=== PATIENT | male | born 1940 | race Hispanic/Latino ===

== ENCOUNTER 2016-10-09 11:02 | Observation (INO) | payer MEDICARE, MEDICAID ==
[2016-10-09 11:04] VITALS: BMI 25.8
[2016-10-09 11:14] VITALS: RESP 16; TEMP 97.7
--- NOTE | 2016-10-09 11:47 | ED PDOC ---
Arrival/HPI - General Chief Complaint: Abdominal Pain Time Seen by Provider: 10/09/16 11:21 Historian: Patient - History of Present Illness Narrative History of Present Illness (Text): 10/09/16 11:43 A 75 year old male, whose past medical history includes pacemaker, hypertension , hyperlipidemia, diabetes, CHF, asthma and foot ulcer, presents to the emergency department complaining of intermittent right sided abdominal pain for the past 3-4 days. Patient states the pain occasionally radiates to the right side of his back. Patient denies any fever, vomiting, diarrhea, stool changes, urinary symptoms, chest pain, shortness of breath or any other complaints. Patient has no history of abdominal surgeries. PMD/Technical Administrator: Dr. Bowling Time/Duration: Other (3-4 days) Symptom Course: Intermittent Quality: Other Context: Home Past Medical History - Provider Review Nursing Documentation Reviewed: Yes - Past History Past History: Non-Contributing - Infectious Disease Hx of Infectious Diseases: None - Cardiac Hx Cardiac Disorders: Yes Hx Congestive Heart Failure: Yes Hx Hypertension: Yes Hx Pacemaker: Yes ([employer] 01/2007, 02/2009) - Pulmonary Hx Respiratory Disorders: Yes Hx Asthma: Yes Hx Chronic Obstructive Pulmonary Disease (COPD): Yes - Neurological Hx Neurological Disorder: No - HEENT Hx HEENT Disorder: No - Renal Hx Renal Disorder: No - Endocrine/Metabolic Hx Endocrine Disorders: Yes Hx Diabetes Mellitus Type 2: Yes - Hematological/Oncological Hx Blood Disorders: Yes Hx Cancer: Yes (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, great toe right) Other/Comment: pt was treated with cobalt,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, due to cancerous tumor - Integumentary Hx Dermatological Disorder: Yes Other/Comment: R diabetic foot ulcer - Musculoskeletal/Rheumatological Hx Musculoskeletal Disorders: Yes Hx Arthritis: Yes - Gastrointestinal Hx Gastrointestinal Disorders: No - Genitourinary/Gynecological Hx Genitourinary Disorders: No - Psychiatric Hx Psychophysiologic Disorder: No Hx Depression: No Hx Emotional Abuse: No Hx Physical Abuse: No Hx Substance Use: No - Surgical History Hx Amputation: Yes (r great toe) Other/Comment: Pacemaker, great toe amputation to right foot - Anesthesia Hx Anesthesia: Yes Hx Anesthesia Reactions: No Hx Malignant Hyperthermia: No - Suicidal Assessment Feels Threatened In Home Enviroment: No Family/Social History - Physician Review Nursing Documentation Reviewed: Yes Family/Social History: No Known Family HX Smoking Status: Former Smoker Hx Alcohol Use: No Hx Substance Use: No Hx Substance Use Treatment: No Allergies/Home Meds Allergies/Adverse Reactions: Allergies epinephrine Adverse Reaction (Verified 08/30/15 18:29) DIZZINESS Home Medications: Home Meds Medication Instructions Recorded Confirmed Esomeprazole Magnesium [Nexium] 40 mg PO DAILY 05/11/12 10/09/16 Furosemide [Lasix] 40 mg PO DAILY 05/11/12 10/09/16 Propranolol Hydrochloride [Inderal] 120 mg PO DAILY 05/11/12 10/09/16 Albuterol Sulfate [Albuterol Hfa] 0.09 mg IH Q6 PRN 07/18/12 10/09/16 Aspirin [Aspirin EC] 81 mg PO DAILY 12/26/14 10/09/16 Simvastatin [Zocor] 40 mg PO QPM 12/26/14 10/09/16 Ticagrelor [Brilinta] 90 mg PO BID 03/24/15 10/09/16 Glyburide 5 mg PO DAILY 06/16/15 10/09/16 Amoxicillin/Clavulanate [Augmentin 875 tab PO BID 10/09/16 10/09/16 875 MG-125 MG Tab] Review of Systems - Physician Review All systems were reviewed & negative as marked: Yes - Review of Systems Constitutional: absent: Fevers Respiratory: absent: SOB Cardiovascular: absent: Chest Pain Gastrointestinal: Abdominal Pain (Right sided abdominal pain, occasional radiation to right back). absent: Stool Changes, Diarrhea, Vomiting Genitourinary Male: absent: Dysuria, Frequency, Hematuria, Urinary Output Changes Physical Exam Vital Signs Reviewed: Yes Vital Signs Temp Pulse Resp BP Pulse Ox 10/09/16 15:22 178/99 H 10/09/16 14:00 73 16 190/90 H 100 10/09/16 11:03 97.7 F 70 16 171/79 H 98 Temperature: Afebrile Blood Pressure: Hypertensive Pulse: Regular Respiratory Rate: Normal Appearance: Positive for: Well-Appearing, Non-Toxic, Comfortable Pain Distress: None Mental Status: Positive for: Alert and Oriented X 3 - Systems Exam Head: Present: Atraumatic, Normocephalic Pupils: Present: PERRL Extroacular Muscles: Present: EOMI Conjunctiva: Present: Normal Mouth: Present: Moist Mucous Membranes Neck: Present: Normal Range of Motion Respiratory/Chest: Present: Clear to Auscultation, Good Air Exchange. No: Respiratory Distress, Accessory Muscle Use Cardiovascular: Present: Regular Rate and Rhythm, Normal S1, S2. No: Murmurs Abdomen: Present: Tenderness (Right sided tenderness to palption), Normal Bowel Sounds. No: Distention, Peritoneal Signs, Rebound, Guarding, McBurney's Point Tender, Other (Jeanne's sign) Back: Present: Normal Inspection. No: CVA Tenderness Upper Extremity: Present: Normal Inspection. No: Cyanosis, Edema Lower Extremity: Present: Normal Inspection. No: Edema Neurological: Present: GCS=15, CN II-XII Intact, Speech Normal Skin: Present: Warm, Dry, Normal Color. No: Rashes Psychiatric: Present: Alert, Oriented x 3, Normal Insight, Normal Concentration Medical Decision Making ED Course and Treatment: 10/09/16 11:43 Impression: A 75 year old male with right sided abdominal pain. Denies vomiting, diarrhea or other complaints. Tenderness on exam. Differential Diagnosis included but are not limited to: Appendicitis vs. Cholecystitis vs. Colitis Plan: -- Abdomen and pelvis CT -- Labs -- Urinalysis -- Toradol -- Reassess and disposition 10/09/16 16:05 Patient requesting his lasix dosage and it was given. CT was completed and it was negative. Patient abdomen was soft, not tender and not distended. Patient is tolerating PO fluids. 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 Catapress low dosage ordered. BP improved. Will discharge patient home with PMD f/u Dr. Bowling. Advised to return to the ED with any worsening symptoms or concerns. - Lab Interpretations I have reviewed the lab results: Yes - Medication Orders Current Medication Orders: Discontinued Medications Clonidine HCl (Catapres) 0.1 mg PO STAT STA Stop: 10/09/16 15:23 Furosemide (Lasix) 40 mg IVP STAT STA Stop: 10/09/16 14:19 Ketorolac Tromethamine (Toradol) 30 mg IVP STAT STA Stop: 10/09/16 11:31 Last Admin: 10/09/16 12:00 Dose: 30 MG IVP Administration Document 10/09/16 12:00 EQ (Rec: 10/09/16 12:15 EQ [facility] [id number]) Charges for Administration # of IVP Administrations 1 ED OBSERVATION Date of observation admission: 10/09/16 Time of observation admission: 11:33 - Observation admission statement Patient is being placed in observation because:: Abdominal pain - Goals of Observation Goals of observation are:: Monitor and treat symptoms - Progress Note Progress Note: 10/09/16 11:33 Patient with right sided abdominal pain. Will order CT and labs. Pain medication administered. Will re-evaluate after treatment. EKG shows paced rhythm at [address]-segment elevations, normal intervals. Interpreted by me. 10/09/16 13:30 Patient resting comfortably, no new complaints. Report Date : 10/09/2016 14:49:35 PROCEDURE: CT Abdomen and Pelvis without intravenous contrast Dictator : Jesus Alberto Damon MD IMPRESSION: Unremarkable non contrast enhanced CT of the abdomen and pelvis. - Scribe Statement The provider has reviewed the documentation as recorded by the Scribe Christa Stevenson Provider Scribe Attestation: All medical record entries made by the Scribe were at my direction and personally dictated by me. I have reviewed the chart and agree that the record accurately reflects my personal performance of the history, physical exam, medical decision making, and the department course for this patient. I have also personally directed, reviewed, and agree with the discharge instructions and disposition. Disposition/Present on Arrival - Present on Arrival Any Indicators Present on Arrival: No History of DVT/PE: No History of Uncontrolled Diabetes: No Urinary Catheter: No History of Decub. Ulcer: No History Surgical Site Infection Following: None - Disposition Have Diagnosis and Disposition been Completed?: Yes Diagnosis: Abdominal pain, Hypertension Disposition: HOME/ ROUTINE Disposition Time: 11:33 Patient Plan: Discharge Patient Problems: Current Active Problems Problem Status Diagnosed Abdominal pain Acute Fever Acute Hypertension Acute Infected pacemaker Acute Condition: IMPROVED
[2016-10-09 11:55] LABS: ADD MANUAL DIFF? NO
[2016-10-09 11:59] LABS: BASO # 0.02 K/mm3 (0.0-2.0); BASO % 0.3 % (0.0-3.0); EOS # 0.2 (0.0-0.7); EOS % 3.1 % (1.5-5.0); GRAN # 4.69 (1.4-6.5); GRAN % 65.4 % (50.0-68.0); HEMATOCRIT 33.9 % (42.0-52.0); LYMPH # 1.8 (1.2-3.4); LYMPH % 25.5 % (22.0-35.0); MEAN CORPUSCULAR HGB CONC 31.6 g/dl (31.0-37.0); MEAN PLATELET VOLUME 8.5 fl (7.0-11.0); MONO # 0.4 (0.1-0.6); MONO % 5.7 % (1.0-6.0); PLATELET COUNT 367 10^3/uL (120.0-450.0); RED CELL DISTRIBUTION WIDTH 15.5 % (11.5-14.5); WHITE BLOOD COUNT 7.2 10^3/ul (4.5-11.0)
[2016-10-09] MEDS ORDERED: Iohexol 240 (50 ml) ONE (12:10)
[2016-10-09 12:11] LABS: INR 0.99 (0.93-1.08); PARTIAL THROMBOPLASTIN TIME 26.1 Seconds (23.7-30.8)
[2016-10-09 12:15] LABS: ALB/GLOB RATIO 1.1 (1.1-1.8); ALKALINE PHOSPHATASE 91 U/L (38-133); ALT/SGPT 29 U/L (7-56); AST/SGOT 16 U/L (15-59); BILIRUBIN,TOTAL 0.6 mg/dL (0.2-1.3); BLOOD UREA NITROGEN 14 mg/dL (7-21); CALCIUM 9.3 mg/dL (8.4-10.5); CARBON DIOXIDE 31 mmol/L (21-33); CHLORIDE 96 mmol/L (98-107); GFR AFRICAN-AMERICAN > 60; GLUCOSE,RANDOM 190 mg/dL (70-110); LIPASE 134 U/L (23-300); POTASSIUM 4.4 mmol/L (3.6-5.0); SODIUM 136 mmol/L (132-148); TOTAL PROTEIN 7.6 g/dL (5.8-8.3)
[2016-10-09 12:36] LABS: URINE BILIRUBIN NEGATIVE (NEGATIVE); URINE BLOOD NEGATIVE (NEGATIVE); URINE GLUCOSE (UA) NEGATIVE (NEGATIVE); URINE KETONE NEGATIVE (NEGATIVE); URINE LEUKOCYTE ESTERASE NEGATIVE Leu/uL (NEGATIVE); URINE PROTEIN 100 mg/dL (<30 mg/dL); URINE UROBILINOGEN 0.2 E.U./dL (<1 E.U./dL)
[2016-10-09 12:37] LABS: URINE APPEARANCE CLEAR (CLEAR); URINE COLOR YELLOW (YELLOW)
[2016-10-09 13:05] LABS: URINE BACTERIA TRACE (NEG); URINE RBC NEGATIVE /hpf (0-2); URINE WBC 0 - 2 /hpf (0-6)
[2016-10-09] MEDS ORDERED: Iohexol 350 MG/100 ML VIAL ONE (14:12)
--- NOTE | 2016-10-09 14:51 | CT ---
PROCEDURE: CT Abdomen and Pelvis without intravenous contrast HISTORY: R sided abd pain r/o appy r/o cholecytitis COMPARISON: None. TECHNIQUE: Without contrast. Contrast Dose: Radiation dose: Total exam DLP = 730 mGy-cm. This CT exam was performed using one or more of the following dose reduction techniques: Automated exposure control, adjustment of the mA and/or kV according to patient size, and/or use of iterative reconstruction technique. FINDINGS: LOWER THORAX: Unremarkable. LIVER: Unremarkable. No gross lesion or ductal dilatation. GALLBLADDER AND BILE DUCTS: Unremarkable. PANCREAS: Unremarkable. No gross lesion or ductal dilatation. SPLEEN: Unremarkable. ADRENALS: Unremarkable. No mass. KIDNEYS AND URETERS: Unremarkable. No hydronephrosis. No solid mass. VASCULATURE: Unremarkable. No aortic aneurysm. BOWEL: Unremarkable. No obstruction. No gross mural thickening. APPENDIX: Unremarkable. Normal appendix. PERITONEUM: Unremarkable. No free fluid. No free air. LYMPH NODES: Unremarkable. No enlarged lymph nodes. BLADDER: Unremarkable. REPRODUCTIVE: Unremarkable. BONES: No acute fracture. OTHER FINDINGS: None. IMPRESSION: Unremarkable non contrast enhanced CT of the abdomen and pelvis.
[2016-10-09 16:28] VITALS: BP 168/88; PULSE 71; O2SAT 99
--- NOTE | 2016-10-10 11:16 | CARD ---
APPROVED REPORT EKG Measurement Heart [id number] OH 180P-23 [id number] <Conclusion> Electronic atrial pacemaker: A pacing is new
== END 2016-10-09 15:43 | disposition home or self-care (01) ==
LOC: ED 11:02 → EROBSV 11:33
PROVIDERS: ADMIT Emergency Medicine; ATTEND Emergency Medicine
DX: R10.9 Unspecified abdominal pain (principal); I10 Essential (primary) hypertension; Z87.891 Personal history of nicotine dependence; E11.9 Type 2 diabetes mellitus without complications; E78.5 Hyperlipidemia, unspecified
CPT/HCPCS: 36415; 74176; 80053; 81001; 83690; 85025; 85610; 85730; 93005; 96374; 96375; 99283; G0378; J1885; J1940; Q9966

== ENCOUNTER 2017-04-12 14:03 | Emergency (ER) | payer MEDICARE, MEDICAID ==
[2017-04-12 14:03] VITALS: BMI 25.8
--- NOTE | 2017-04-12 14:46 | ED PDOC ---
Arrival/HPI - General Time Seen by Provider: 04/12/17 14:43 Historian: Patient - History of Present Illness Narrative History of Present Illness (Text): 04/12/17 14:25 Favian Webster is a 76 year old male, whose past medical history includes hypertension, diabetes, hyperlipidemia, CHF, and COPD, who presents to the emergency department complaining of a productive cough for the past three days. Assoc sore throat. He also states having shortness of breath and it is worse when laying down however he states he is chronically sob. Patient denies fever, nausea, chest pain, headache, vomiting, abdominal pain, or other complaints. PMD: Dr. Bowling Time/Duration: < week (3 days) Symptom Onset: Gradual Symptom Course: Worsening Modifying Factors (Text): shortness of breath and cough is worse when laying down Associated Symptoms (Text): sputum, sore throat, shortness of breath, cough Past Medical History - Provider Review Nursing Documentation Reviewed: Yes - Past History Past History: Non-Contributing - Infectious Disease Hx of Infectious Diseases: None - Cardiac Hx Cardiac Disorders: Yes Hx Congestive Heart Failure: Yes Hx Hypertension: Yes Hx Pacemaker: Yes ([employer] 01/2007, 02/2009) - Pulmonary Hx Respiratory Disorders: Yes Hx Asthma: Yes Hx Chronic Obstructive Pulmonary Disease (COPD): Yes - Neurological Hx Neurological Disorder: No - HEENT Hx HEENT Disorder: No - Renal Hx Renal Disorder: No - Endocrine/Metabolic Hx Endocrine Disorders: Yes Hx Diabetes Mellitus Type 2: Yes - Hematological/Oncological Hx Blood Disorders: Yes Hx Cancer: Yes (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, great toe right) Other/Comment: pt was treated with cobalt,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, due to cancerous tumor - Integumentary Other/Comment: R diabetic foot ulcer - Musculoskeletal/Rheumatological Hx Musculoskeletal Disorders: Yes Hx Arthritis: Yes - Gastrointestinal Hx Gastrointestinal Disorders: No - Genitourinary/Gynecological Hx Genitourinary Disorders: No - Psychiatric Hx Psychophysiologic Disorder: No Hx Depression: No Hx Emotional Abuse: No Hx Physical Abuse: No Hx Substance Use: No - Surgical History Hx Amputation: Yes (r great toe) Other/Comment: Pacemaker, great toe amputation to right foot - Anesthesia Hx Anesthesia: Yes Hx Anesthesia Reactions: No Hx Malignant Hyperthermia: No - Suicidal Assessment Feels Threatened In Home Enviroment: No Family/Social History - Physician Review Nursing Documentation Reviewed: Yes Family/Social History: Other (non-contributory ) Smoking Status: Former Smoker Hx Alcohol Use: No Hx Substance Use: No Hx Substance Use Treatment: No Allergies/Home Meds Allergies/Adverse Reactions: Allergies epinephrine Adverse Reaction (Verified 08/30/15 18:29) DIZZINESS Home Medications: Home Meds Medication Instructions Recorded Confirmed Esomeprazole Magnesium [Nexium] 40 mg PO DAILY 05/11/12 04/12/17 Albuterol Sulfate [Albuterol Hfa] 0.09 mg IH Q6 PRN 07/18/12 04/12/17 Aspirin [Aspirin EC] 81 mg PO DAILY 12/26/14 04/12/17 Simvastatin [Zocor] 40 mg PO QPM 12/26/14 04/12/17 Ticagrelor [Brilinta] 90 mg PO BID 03/24/15 04/12/17 Amoxicillin/Clavulanate [Augmentin 875 tab PO BID 10/09/16 04/12/17 875 MG-125 MG Tab] Review of Systems - Review of Systems Constitutional: absent: Fevers ENT: Voice Changes, Sore Throat Respiratory: SOB, Cough, Sputum Cardiovascular: absent: Chest Pain Gastrointestinal: absent: Abdominal Pain, Diarrhea, Nausea, Vomiting Musculoskeletal: absent: Back Pain Neurological: absent: Headache Physical Exam Vital Signs Reviewed: Yes Vital Signs Temp Pulse Resp BP Pulse Ox 04/12/17 16:50 74 19 156/83 H 99 04/12/17 15:07 98.0 F 78 18 167/89 H 99 Appearance: Positive for: Well-Appearing, Non-Toxic, Comfortable Pain Distress: None Mental Status: Positive for: Alert and Oriented X 3 - Systems Exam Head: Present: Atraumatic, Normocephalic Mouth: Present: Moist Mucous Membranes Pharnyx: No: ERYTHEMA, EXUDATE Neck: Present: Normal Range of Motion Respiratory/Chest: Present: Clear to Auscultation, Good Air Exchange, Other ( pacemaker on left chest wall with exposed wiring that has been present for 3 years. no current signs of infection). No: Respiratory Distress, Accessory Muscle Use Cardiovascular: Present: Regular Rate and Rhythm, Normal S1, S2. No: Murmurs Abdomen: Present: Normal Bowel Sounds. No: Tenderness, Distention, Peritoneal Signs, Rebound, Guarding Upper Extremity: Present: Normal Inspection, Normal ROM, NORMAL PULSES. No: Cyanosis, Edema Lower Extremity: Present: Normal Inspection, NORMAL PULSES, Normal ROM. No: Edema, Tenderness, Swelling Neurological: Present: GCS=15, CN II-XII Intact, Speech Normal Skin: Present: Warm, Dry, Normal Color. No: Rashes Psychiatric: Present: Alert, Oriented x 3, Normal Insight, Normal Concentration Medical Decision Making ED Course and Treatment: pt resting comfortably, appears well, no distress, nl spo2 on RA. disc results, plan for rx, follow up, rtr. pt v/u and agrees w plan. - Lab Interpretations Lab Results: 04/12/17 15:10 04/12/17 15:10 Lab Results 04/12/17 15:10: Sodium 141, Potassium 4.1, Chloride 100, Carbon Dioxide 30, Anion Gap 15, BUN 19, Creatinine 1.3, Est GFR ( Amer) > 60, Est GFR (Non- Af Amer) 53, Random Glucose 156 H, Calcium 9.1, Total Bilirubin 0.5, AST 32, ALT 24, Alkaline Phosphatase 86, Troponin I < 0.01, NT-Pro-B Natriuret Pep 347, Total Protein 7.9, Albumin 4.4, Globulin 3.4, Albumin/Globulin Ratio 1.3 04/12/17 15:10: WBC 10.2 D, RBC 4.49, Hgb 10.5 L, Hct 34.0 L, MCV 75.7 L, MCH 23.4 L, MCHC 30.9 L, RDW 16.5 H, Plt Count 395, MPV 8.7, Gran % 76.5 H, Lymph % (Auto) 13.0 L, [place] % (Auto) 8.5 H, Eos % (Auto) 1.8, Baso % (Auto) 0.2, Gran # 7.79 H, Lymph # 1.3, [place] # 0.9 H, Eos # 0.2, Baso # 0.02 04/12/17 15:07: POC Glucose (mg/dL) 176 H - RAD Interpretation Radiology Orders: 04/12/17 14:53 CHEST TWO VIEWS (PA/LAT) [RAD] Stat - Scribe Statement The provider has reviewed the documentation as recorded by the John Dominique Provider Scribe Attestation: All medical record entries made by the Scribe were at my direction and personally dictated by me. I have reviewed the chart and agree that the record accurately reflects my personal performance of the history, physical exam, medical decision making, and the department course for this patient. I have also personally directed, reviewed, and agree with the discharge instructions and disposition. Disposition/Present on Arrival - Present on Arrival Any Indicators Present on Arrival: No History of DVT/PE: No History of Uncontrolled Diabetes: No Urinary Catheter: No History Surgical Site Infection Following: None - Disposition Have Diagnosis and Disposition been Completed?: Yes Diagnosis: Bronchitis Disposition: HOME/ ROUTINE Disposition Time: 16:37 Condition: STABLE Discharge Instructions (ExitCare): Acute Bronchitis (ED) Additional Instructions: Please follow up with your doctor. Return to the ER for any fever, worsening symptoms, or for any other concerns. Prescriptions: Azithromycin 250 mg PO DAILY #6 tab Referrals: PCP,NO [Primary Care Provider] - Follow up with primary Forms: [employer] (Korean)
[2017-04-12 15:15] VITALS: TEMP 98; O2SAT 99
[2017-04-12 15:29] LABS: BASO # 0.02 K/mm3 (0.0-2.0); BASO % 0.2 % (0.0-3.0); EOS # 0.2 (0.0-0.7); EOS % 1.8 % (1.5-5.0); GRAN # 7.79 (1.4-6.5); GRAN % 76.5 % (50.0-68.0); LYMPH # 1.3 (1.2-3.4); MEAN CELL VOLUME 75.7 fl (80.0-105.0); MEAN CORPUSCULAR HEMOGLOBIN 23.4 pg (25.0-35.0); MEAN CORPUSCULAR HGB CONC 30.9 g/dl (31.0-37.0); MEAN PLATELET VOLUME 8.7 fl (7.0-11.0); MONO # 0.9 (0.1-0.6); MONO % 8.5 % (1.0-6.0); RED CELL DISTRIBUTION WIDTH 16.5 % (11.5-14.5); WHITE BLOOD COUNT 10.2 10^3/ul (4.5-11.0)
[2017-04-12 15:31] LABS: ALB/GLOB RATIO 1.3 (1.1-1.8); ALKALINE PHOSPHATASE 86 U/L (38-126); ALT/SGPT 24 U/L (7-56); AST/SGOT 32 U/L (17-59); BILIRUBIN,TOTAL 0.5 mg/dL (0.2-1.3); BLOOD UREA NITROGEN 19 mg/dL (7-21); CALCIUM 9.1 mg/dL (8.4-10.5); CARBON DIOXIDE 30 mmol/L (21-33); CHLORIDE 100 mmol/L (98-107); GFR AFRICAN-AMERICAN > 60; GLUCOSE,RANDOM 156 mg/dL (70-110); POTASSIUM 4.1 mmol/L (3.6-5.0); SODIUM 141 mmol/L (132-148); TOTAL PROTEIN 7.9 g/dL (5.8-8.3)
[2017-04-12 15:48] LABS: TROPONIN I < 0.01 ng/mL
--- NOTE | 2017-04-12 16:16 | RAD ---
HISTORY: cough COMPARISON: 08/30/2015 TECHNIQUE: Chest PA and lateral FINDINGS: LUNGS: No active pulmonary disease. PLEURA: No significant pleural effusion identified. No pneumothorax apparent. CARDIOVASCULAR: Normal. OSSEOUS STRUCTURES: No significant abnormalities. VISUALIZED UPPER ABDOMEN: Normal. OTHER FINDINGS: None. IMPRESSION: No active disease.
[2017-04-12 16:50] VITALS: BP 156/83; PULSE 74; RESP 19
== END 2017-04-12 16:50 | disposition home or self-care (01) ==
LOC: ED 14:03
DX: J40 Bronchitis, not specified as acute or chronic (principal); E78.5 Hyperlipidemia, unspecified; I10 Essential (primary) hypertension; E11.9 Type 2 diabetes mellitus without complications; Z87.891 Personal history of nicotine dependence; I50.9 Heart failure, unspecified

== ENCOUNTER 2018-01-11 15:37 | Emergency (ER) | payer MEDICARE, MEDICAID ==
[2018-01-11 15:38] VITALS: BMI 25.8
--- NOTE | 2018-01-11 16:05 | ED PDOC ---
Arrival/HPI - General Time Seen by Provider: 01/11/18 16:05 Historian: Patient - History of Present Illness Narrative History of Present Illness (Text): 01/11/18 16:04 A 77 year old male, whose past medical history includes pacemaker and pneumonia , presents to the emergency department complaining of cough since last night. Patient reports also spitting up clear mucous and has rhinorrhea as well. States he has difficulty swallowing mucous and experiences a choking sensation in throat. Also, he mentions after eating it takes approximately 1 hour to clear throat. He states throat feels somewhat swollen. Patient notes he later began violently coughing since 22:00 last night and was unable to sleep until 07 :00 this morning. However,. 2 hours later coughing came back and has not stopped. He notes coughing worsens when laying down. Patient became concerned of having possible bronchitis or pneumonia due to past medical history. Patient denies any vomiting, swelling to lower extremities, or any other complaints at this time. PMD: Dr. Moe Bowling Time/Duration: Other (coughing began last night at approximately 22:00) Past Medical History - Provider Review Nursing Documentation Reviewed: Yes - Past History Past History: Non-Contributing - Infectious Disease Hx of Infectious Diseases: None - Cardiac Hx Cardiac Disorders: Yes Hx Congestive Heart Failure: Yes Hx Hypertension: Yes Hx Pacemaker: Yes ([employer] 01/2007, 02/2009) - Pulmonary Hx Respiratory Disorders: Yes Hx Asthma: Yes Hx Chronic Obstructive Pulmonary Disease (COPD): Yes - Neurological Hx Neurological Disorder: No - HEENT Hx HEENT Disorder: No - Renal Hx Renal Disorder: No - Endocrine/Metabolic Hx Endocrine Disorders: Yes Hx Diabetes Mellitus Type 2: Yes - Hematological/Oncological Hx Blood Disorders: Yes Hx Cancer: Yes (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, great toe right) Other/Comment: pt was treated with cobalt,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, due to cancerous tumor - Integumentary Other/Comment: R diabetic foot ulcer - Musculoskeletal/Rheumatological Hx Musculoskeletal Disorders: Yes Hx Arthritis: Yes - Gastrointestinal Hx Gastrointestinal Disorders: No - Genitourinary/Gynecological Hx Genitourinary Disorders: No - Psychiatric Hx Psychophysiologic Disorder: No Hx Depression: No Hx Emotional Abuse: No Hx Physical Abuse: No Hx Substance Use: No - Surgical History Hx Amputation: Yes (r great toe) Other/Comment: Pacemaker, great toe amputation to right foot - Anesthesia Hx Anesthesia: Yes Hx Anesthesia Reactions: No Hx Malignant Hyperthermia: No - Suicidal Assessment Feels Threatened In Home Enviroment: No Family/Social History - Physician Review Nursing Documentation Reviewed: Yes Family/Social History: No Known Family HX Smoking Status: Former Smoker Hx Alcohol Use: No Hx Substance Use: No Hx Substance Use Treatment: No Allergies/Home Meds Allergies/Adverse Reactions: Allergies epinephrine Adverse Reaction (Verified 01/11/18 16:01) DIZZINESS Home Medications: Home Meds Medication Instructions Recorded Confirmed Esomeprazole Magnesium [Nexium] 40 mg PO DAILY 05/11/12 01/11/18 Simvastatin [Zocor] 40 mg PO QPM 12/26/14 01/11/18 Ticagrelor [Brilinta] 90 mg PO BID 03/24/15 01/11/18 Amoxicillin/Clavulanate [Augmentin 875 tab PO BID 10/09/16 01/11/18 875 MG-125 MG Tab] Propranolol [Inderal LA] 80 mg PO DAILY 01/11/18 01/11/18 glyBURIDE [Micronase] 5 mg PO BID 01/11/18 01/11/18 Review of Systems - Physician Review All systems were reviewed & negative as marked: Yes - Review of Systems ENT: Rhinorrhea, Other (difficulty swallowing, feels "swelling" sensation in throat.) Respiratory: Cough (violent cough, with clear mucous which causes choking sensation when swallowing) Gastrointestinal: absent: Vomiting Musculoskeletal: absent: Other (no swelling to lower extremities) Physical Exam - Physical Exam Narrative Physical Exam (Text): Gen: VS reviewed, alert, well developed, well nourished, nontoxic, mild distress (every patient is mild distress unless otherwise stated). ENT: normal pharynx, post-nasal drip Eye: EOMI, PERRL Neck: no JVD, supple, no adenopathy CV: regular rate, regular rhythm, no rubs, no murmur, no gallops, S1, S2, pulses , equal and strong Pulm: no distress, clear to auscultation, no wheeze, no rhonchi, breath sounds equal, no rales Abd: soft, nontender, no guarding, no rebound, no rigidity, normal bowel sounds Ext: no edema Skin: good color, no rash, no cyanosis Psych: responds appropriately to questions, normal affect Neuro: oriented x 3, CN2-12 intact grossly, motor intact, sensation intact Vital Signs Reviewed: Yes Vital Signs Temp Pulse Resp BP Pulse Ox 01/11/18 16:03 98.8 F 77 16 130/82 98 Temperature: Afebrile Blood Pressure: Normal Pulse: Regular Respiratory Rate: Normal Appearance: Positive for: Well-Appearing, Non-Toxic, Comfortable Pain Distress: None Mental Status: Positive for: Alert and Oriented X 3 Medical Decision Making ED Course and Treatment: 01/11/18 16:08 Impression: 77 year old male with coughing and rhinorrhea. Physical exam shows post-nasal drip; otherwise no other acute findings upon examination. Plan: -- Chest X-ray -- Reassess and disposition Progress Notes: 01/11/2018 17:10 Chest X-ray IMPRESSION: No active disease. No significant interval change compared to the prior examination(s). Dictator: Vitor aLndry MD 01/11/18 17:40 patient seen for runny nose and cough, acute onset, benign physical exam, presentation consistent with postnasal drip. cxr doen to rule out pneumonia. no clinical evidence of CHF. supportive care, recommends antihistamine for the runny nose. further would like to tx with pseudophed but will avoid in light of the patient's cardiac hx. patient remained stable throughout ED and will follow up with his pcp. - RAD Interpretation Radiology Orders: 01/11/18 16:08 X-RAY [CHEST TWO VIEWS (PA/LAT)] [RAD] Stat - Scribe Statement The provider has reviewed the documentation as recorded by the John Hampton Provider Scribe Attestation: All medical record entries made by the Rafalibalisia were at my direction and personally dictated by me. I have reviewed the chart and agree that the record accurately reflects my personal performance of the history, physical exam, medical decision making, and the department course for this patient. I have also personally directed, reviewed, and agree with the discharge instructions and disposition. Disposition/Present on Arrival - Present on Arrival Any Indicators Present on Arrival: No History of DVT/PE: No History of Uncontrolled Diabetes: No Urinary Catheter: No History Surgical Site Infection Following: None - Disposition Have Diagnosis and Disposition been Completed?: Yes Diagnosis: Postnasal drip Disposition: HOME/ ROUTINE Disposition Time: 17:43 Patient Plan: Discharge Condition: STABLE Discharge Instructions (ExitCare): Cough in Adults Print Language: CHILEAN Additional Instructions: MIAN MICHAEL, thank you for letting us take care of you today. Your provider was Shoaib Leigh DO and you were treated for cough with postnasal drip. The emergency medical care you received today was directed at your acute symptoms. If you were prescribed any medication, please fill it and take as directed. It may take several days for your symptoms to resolve. Return to the Emergency Department if your symptoms worsen, do not improve, or if you have any other problems. Please contact your doctor or call one of the physicians/clinics you have been referred to that are listed on the Patient Visit Information form that is included in your discharge packet. Bring any paperwork you were given at discharge with you along with any medications you are taking to your follow up visit. Our treatment cannot replace ongoing medical care by a primary care provider outside of the emergency department. Thank you for allowing the [facility] team to be part of your care today. If you had an X-Ray or CT scan: A Radiologist will review the ED reading if any change in treatment is needed we will contact you. If you had a blood, urine, or wound culture: It will take several days for the results, if any change in treatment is needed we will contact you. If you had an STI test: It will take 48 hours for the results. Please call after 1 week if you have not heard back. Referrals: Moe Bowling MD [Primary Care Provider] - Follow up with primary
--- NOTE | 2018-01-11 17:12 | RAD ---
Date of service: 01/11/2018 HISTORY: cough, pneumonia COMPARISON: 04/12/2017. TECHNIQUE: Chest PA and lateral FINDINGS: LUNGS: No active pulmonary disease. PLEURA: No significant pleural effusion identified. No pneumothorax apparent. CARDIOVASCULAR: No radiographic findings to suggest acute or significant cardiovascular disease. Position/ configuration of pacemaker device: Satisfactory. OSSEOUS STRUCTURES: No significant abnormalities. VISUALIZED UPPER ABDOMEN: Normal. OTHER FINDINGS: None. IMPRESSION: No active disease. No significant interval change compared to the prior examination(s).
[2018-01-11 18:25] VITALS: BP 137/72; PULSE 70; RESP 18; TEMP 98.2; O2SAT 98
== END 2018-01-11 17:49 | disposition home or self-care (01) ==
LOC: ED 15:37
DX: R09.82 Postnasal drip (principal); Z87.01 Personal history of pneumonia (recurrent); Z87.891 Personal history of nicotine dependence

== ENCOUNTER 2018-01-30 19:46 | Inpatient (IN) | payer MEDICARE, MEDICAID ==
--- NOTE | 2018-01-30 20:15 | ED PDOC ---
Arrival/HPI - General Historian: Patient - History of Present Illness Time/Duration: 24 hours Symptom Onset: Sudden Symptom Course: Unchanged, Worsening Activities at Onset: Rest <Steven Parada - Last Filed: 01/30/18 23:34> <Keaton Heredia - Last Filed: 02/04/18 07:31> - General Chief Complaint: Cough, Cold, Congestion Time Seen by Provider: 01/30/18 19:48 - History of Present Illness Narrative History of Present Illness (Text): 01/30/18 20:12 Patient is a 77 year old male with PMH of DM2, CHF, and pacemaker placement who presents to Emergency department with worsening cough since around 7am this AM. Patient states that about 2 weeks ago he was here for a bout of laryngitis. Patient states he is on antibiotics chronically for diabetic foot wound in his R foot. He states that the cough is sometimes productive of green-clear sputum and sometimes dry. He states that cough drops have not helped with the cough and nothing in particular seems to make it worse. He states he feels intermittent shortness of breath when he coughs but otherwise denies fever, chills, chest pain, wheezing, nausea/vomiting/diarrhea, or other symptoms. ( Steven Parada) Past Medical History - Provider Review Nursing Documentation Reviewed: Yes - Travel History Have you recently traveled outside [place] w/in the past 3 mons?: No - Past History Past History: Non-Contributing - Infectious Disease Hx of Infectious Diseases: None - Cardiac Hx Cardiac Disorders: Yes Hx Congestive Heart Failure: Yes Hx Hypertension: Yes Hx Pacemaker: Yes - Pulmonary Hx Respiratory Disorders: Yes Hx Asthma: Yes Hx Chronic Obstructive Pulmonary Disease (COPD): Yes - Neurological Hx Neurological Disorder: No - HEENT Hx HEENT Disorder: No - Renal Hx Renal Disorder: No - Endocrine/Metabolic Hx Endocrine Disorders: Yes Hx Diabetes Mellitus Type 2: Yes - Hematological/Oncological Hx Blood Disorders: Yes Hx Cancer: Yes - Integumentary Hx Dermatological Disorder: Yes Other/Comment: R diabetic foot ulcer - Musculoskeletal/Rheumatological Hx Musculoskeletal Disorders: Yes Hx Arthritis: Yes - Gastrointestinal Hx Gastrointestinal Disorders: No - Genitourinary/Gynecological Hx Genitourinary Disorders: No - Psychiatric Hx Psychophysiologic Disorder: No Hx Substance Use: No - Surgical History Hx Amputation: Yes - Anesthesia Hx Anesthesia: Yes Hx Anesthesia Reactions: No Hx Malignant Hyperthermia: No - Suicidal Assessment Feels Threatened In Home Enviroment: No <ParadaSteven - Last Filed: 01/30/18 23:34> Family/Social History - Physician Review Nursing Documentation Reviewed: Yes Family/Social History: No Known Family HX Smoking Status: Former Smoker Hx Alcohol Use: No Hx Substance Use: No Hx Substance Use Treatment: No <KarmaSteven - Last Filed: 01/30/18 23:34> Allergies/Home Meds <Steven Parada - Last Filed: 01/30/18 23:34> <Keaton Heredia - Last Filed: 02/04/18 07:31> Allergies/Adverse Reactions: Allergies epinephrine Adverse Reaction (Verified 01/30/18 19:48) DIZZINESS Home Medications: Home Meds Medication Instructions Recorded Confirmed Esomeprazole Magnesium [Nexium] 40 mg PO DAILY 05/11/12 01/30/18 Simvastatin [Zocor] 40 mg PO QPM 12/26/14 01/30/18 Ticagrelor [Brilinta] 90 mg PO BID 03/24/15 01/30/18 Amoxicillin/Clavulanate [Augmentin 875 tab PO BID 10/09/16 01/30/18 875 MG-125 MG Tab] Propranolol [Inderal LA] 80 mg PO DAILY 01/11/18 01/30/18 glyBURIDE [Micronase] 5 mg PO BID 01/11/18 01/30/18 Aspirin [Adult Low Dose Aspirin EC] 81 mg PO DAILY 01/31/18 01/31/18 Furosemide [Lasix] 40 mg PO DAILY 01/31/18 01/31/18 Review of Systems - Physician Review All systems were reviewed & negative as marked: Yes - Review of Systems Constitutional: absent: Fevers, Night Sweats Eyes: absent: Vision Changes, Photophobia ENT: Sore Throat, Rhinorrhea, Sinus Congestion. absent: Hearing Changes Respiratory: SOB, Cough, Sputum. absent: Wheezing Cardiovascular: absent: Chest Pain, Palpitations Gastrointestinal: absent: Abdominal Pain, Diarrhea, Nausea, Vomiting Genitourinary Male: absent: Dysuria, Frequency Musculoskeletal: absent: Arthralgias Skin: absent: Rash, Pruritis Neurological: absent: Headache, Dizziness Endocrine: absent: Diaphoresis Hemo/Lymphatic: absent: Adenopathy Psychiatric: absent: Anxiety, Depression <Steven Parada - Last Filed: 01/30/18 23:34> Physical Exam Vital Signs Reviewed: Yes Temperature: Afebrile Blood Pressure: Normal Pulse: Regular Respiratory Rate: Normal Appearance: Positive for: Ill-Appearing, Uncomfortable Mental Status: Positive for: Alert and Oriented X 3 - Systems Exam Head: Present: Atraumatic, Normocephalic Pupils: Present: PERRL Extroacular Muscles: Present: EOMI Conjunctiva: Present: Other (pale sclera) Ears: Present: Normal Mouth: Present: Dry Pharnyx: Present: Normal. No: ERYTHEMA, EXUDATE Nose (External): Present: Atraumatic Neck: Present: Normal Range of Motion. No: JVD Respiratory/Chest: Present: Rales (mild rales at the bases b/l). No: Wheezes, Rhonchi Cardiovascular: Present: Regular Rate and Rhythm, Normal S1, S2. No: Murmurs, Rub, Gallop Abdomen: No: Tenderness, Rebound, Guarding Back: Present: Normal Inspection Upper Extremity: Present: Normal Inspection. No: Cyanosis, Edema Lower Extremity: Present: Capillary Refill < 2 s, Other (diabetic foot ulcer on R foot). No: Swelling, Erythema Skin: Present: Warm, Dry Psychiatric: Present: Alert, Oriented x 3 <Steven Parada - Last Filed: 01/30/18 23:34> Vital Signs Temp Pulse Resp BP Pulse Ox 01/30/18 23:09 135/77 01/30/18 22:00 84 18 135/77 98 01/30/18 20:00 97.9 F 84 18 140/68 99 01/30/18 19:49 98.6 F 79 18 158/69 H 97 Medical Decision Making - Lab Interpretations I have reviewed the lab results: Yes Interpretation: Abnormal lab values (troponin 0.97) - RAD Interpretation Cad Librarian: ED Physician - EKG Interpretation Interpreted by ED Physician: Yes Type: 12 lead EKG Comparison: Similar to previous EKG <Steven Parada - Last Filed: 01/30/18 23:34> <Keaton Heredia - Last Filed: 02/04/18 07:31> ED Course and Treatment: 01/30/18 22:00 -Continues to have cough -Troponin 0.97, EKG without acute findings -Will admit for presumed NSTEMI -ASA 325 mg given -Heparin drip started NSTEMI protocol (Steven Parada) Patient Seen With Resident: In agreement with resident note which contains more details about the patient. Patient was seen and evaluated with resident. Came up with plan and treatment together. 77 year old male presents coming of worsening cough that began today morning. no cp. Plan: -- Labs -- EKG -- Chest X-ray -- Aspirin, heparin, Lasix -- Urinalysis 01/31/18 03:[address] segura, requests hospitalist admission dr lukasz torrez ( [facility]) - Lab Interpretations Lab Results: 01/30/18 20:25 01/30/18 20:25 Lab Results 01/30/18 20:25: PT 12.0, INR 1.05, APTT 29.8 01/30/18 20:25: Sodium 140, Potassium 4.1, Chloride 100, Carbon Dioxide 28, Anion Gap 17, BUN 22 H, Creatinine 1.3, Est GFR ( Amer) > 60, Est GFR ( Non-Af Amer) 53, Random Glucose 126 H, Calcium 9.0, Magnesium 1.8, Total Bilirubin 0.3, AST 34, ALT 21, Alkaline Phosphatase 93, Lactate Dehydrogenase 531, Total Creatine Kinase 152, Troponin I 0.97 H* D, NT-Pro-B Natriuret Pep 1020 H, Total Protein 7.7, Albumin 4.1, Globulin 3.6, Albumin/Globulin Ratio 1.2 01/30/18 20:25: WBC 10.7, RBC 4.34, Hgb 9.4 L, Hct 30.6 L, MCV 70.5 L D, MCH 21.7 L, MCHC 30.7 L, RDW 17.4 H, Plt Count 422, MPV 8.6, Gran % 70.6 H, Lymph % (Auto) 18.3 L, [place] % (Auto) 6.2 H, Eos % (Auto) 4.6, Baso % (Auto) 0.3, Gran # 7.53 H, Lymph # (Auto) 2.0, [place] # (Auto) 0.7 H, Eos # (Auto) 0.5, Baso # (Auto ) 0.03 - RAD Interpretation Narrative RAD Interpretations (Text): 01/30/18 22:04 CXR without acute findings (Steven Parada) Radiology Orders: 01/30/18 20:12 CHEST PORTABLE [RAD] Stat - EKG Interpretation EKG Interpretation (Text): 01/30/18 22:[address] elevation or other acute findings (Steven Parada) - Medication Orders Current Medication Orders: Discontinued Medications Amoxicillin/Clavulanate Potassium (Augmentin 875 Mg-125 Mg Tab) 1 tab PO Q12 [facility] PRN Reason: Protocol Last Admin: 02/02/18 09:24 Dose: 1 tab Aspirin (Aspirin) 325 mg PO STAT STA Stop: 01/30/18 21:27 Last Admin: 01/30/18 23:09 Dose: 325 mg Aspirin (Ecotrin) 325 mg PO STAT STA Stop: 01/30/18 22:31 Last Admin: 01/30/18 23:10 Dose: Aspirin (Ecotrin) 81 mg PO DAILY [facility] Last Admin: 02/02/18 09:24 Dose: 81 mg Atorvastatin Calcium (Lipitor) 20 mg PO DIN [facility] Last Admin: 02/01/18 17:50 Dose: 20 mg Clopidogrel Bisulfate (Plavix) 300 mg PO STAT STA Stop: 01/30/18 22:31 Last Admin: 01/30/18 23:10 Dose: 300 mg Clopidogrel Bisulfate (Plavix) 75 mg PO DAILY [facility] Last Admin: 01/31/18 09:12 Dose: 75 mg Docusate Sodium (Colace) 100 mg PO BID [facility] Last Admin: 02/02/18 09:56 Dose: 100 mg Last Bowel Movement Document 02/02/18 09:56 RDS (Rec: 02/02/18 09:57 RDS [id number]) Last Bowel Movement Last Bowel Movement 01/30/18 Ferrous Gluconate (Fergon) 324 mg PO TID [facility] Last Admin: 02/01/18 10:58 Dose: 324 mg Ferrous Sulfate (Feosol) 324 mg PO TID [facility] Last Admin: 02/02/18 13:00 Dose: 324 mg Furosemide (Lasix) 40 mg IVP STAT STA Stop: 01/30/18 21:28 Last Admin: 01/30/18 23:09 Dose: 40 mg MAR Blood Pressure Document 01/30/18 23:09 JOMaryam (Rec: 01/30/18 23:09 KYLAH [id number]) Blood Pressure Blood Pressure (100/60-150/90) 135/77 IVP Administration Document 01/30/18 23:09 KYLAH (Rec: 01/30/18 23:09 KYLAH [id number]) Charges for Administration # of IVP Administrations 1 Furosemide (Lasix) 40 mg PO DAILY [facility] Last Admin: 02/02/18 09:24 Dose: 40 mg MAR Blood Pressure Document 02/02/18 09:24 RDS (Rec: 02/02/18 09:24 RDS [id number]) Blood Pressure Blood Pressure (100/60-150/90) 130/60 Glyburide (Micronase) 5 mg PO 0800,1700 [facility] Last Admin: 02/02/18 09:24 Dose: 5 mg Guaifenesin/Dextromethorphan (Robitussin Dm) 10 ml PO Q4H PRN PRN Reason: Cough Last Admin: 01/31/18 01:08 Dose: 10 ml Heparin Sodium (Porcine) (Heparin) 5,000 units IV ONCE ONE PRN Reason: Protocol Stop: 01/30/18 21:27 Last Admin: 01/30/18 23:09 Dose: 5,000 units eMAR Start Stop Document 01/30/18 23:09 KYLAH (Rec: 01/30/18 23:09 KYLAH [id number]) Intravenous Solution Start Date 01/30/18 Start Time 23:09 End Date 01/30/18 End time 23:10 Total Infusion Time 1 Heparin Sodium/Sodium Chloride (Heparin 14304 Units/250ml 1/2 Normal Saline) 25 ,000 units in 250 mls @ 9.253 mls/hr IV .Q24H [facility]; 12 UNITS/KG/HR PRN Reason: Protocol Stop: 01/31/18 10:00 Last Titration: 01/31/18 06:54 Dose: 10 units/kg/hr, 7.711 mls/hr Titration Intervention Document 01/31/18 06:54 AP (Rec: 01/31/18 06:55 AP [id number]) Titration Intake Titration Intake 125 Cumulative Intake 125 Cumulative Intake (Rx) 125 Waste Amount 0 Container Volume 125 Titration Dosing Titration Dose 10 IV Rate 7.711 Intake/Decrease Decreased Cumulative Dose 27922 Levofloxacin/Dextrose (Levaquin 750mg) 750 mg in 150 mls @ 100 mls/hr IVPB DAILY [facility] PRN Reason: Protocol Stop: 02/03/18 23:59 Last Admin: 02/01/18 10:56 Dose: 100 mls/hr eMAR Start Stop Document 02/01/18 10:56 SG (Rec: 02/01/18 10:57 SG [id number]) Intravenous Solution Start Date 02/01/18 Start Time 10:56 End Date 02/01/18 End time 12:26 Total Infusion Time 90 Sodium Chloride (Sodium Chloride 0.9%) 1,000 mls @ 100 mls/hr IV .Q10H [facility] Stop: 01/31/18 21:00 Last Admin: 01/31/18 17:22 Dose: 100 mls/hr eMAR Start Stop Document 01/31/18 17:22 DEL (Rec: 01/31/18 17:22 DEL [id number]) Intravenous Solution Start Date 01/31/18 Start Time 16:00 Insulin Human Regular (Humulin R Med) 0 units SC ACHS [facility] PRN Reason: Protocol Last Admin: 02/02/18 12:18 Dose: Not Given Non-Admin Reason: Blood Sugar Parameter MAR Blood Glucose Document 02/02/18 12:18 RDS (Rec: 02/02/18 12:18 RDS [id number]) Blood Glucose Finger Stick Blood Glucose (70-120) 135 Levofloxacin (Levaquin) 750 mg PO Q48H [facility] PRN Reason: Protocol Multivitamins (Thera Tab) 1 tab PO 0800 [facility] Last Admin: 02/02/18 09:24 Dose: 1 tab Mupirocin (Bactroban Ointment) 0 gm TOP BID [facility] Last Admin: 02/02/18 10:56 Dose: Ondansetron HCl (Zofran Inj) 4 mg IVP Q6H PRN PRN Reason: Nausea/Vomiting Pantoprazole Sodium (Protonix Inj) 40 mg IVP DAILY [facility] Last Admin: 02/01/18 10:58 Dose: 40 mg IVP Administration Document 02/01/18 10:58 SG (Rec: 02/01/18 10:58 SG [id number]) Charges for Administration # of IVP Administrations 1 Pantoprazole Sodium (Protonix Ec Tab) 40 mg PO ACB [facility] Last Admin: 02/02/18 06:55 Dose: 40 mg Polyethylene Glycol (Miralax) 17 gm PO STAT STA Stop: 02/01/18 21:26 Last Admin: 02/01/18 22:11 Dose: 17 gm Polyethylene Glycol (Miralax) 17 gm PO DAILY [facility] Last Admin: 02/02/18 09:56 Dose: 17 gm Potassium Chloride (K-Dur 20 Meq Er Tab) 40 meq PO ONCE ONE Stop: 02/01/18 11:31 Last Admin: 02/01/18 12:04 Dose: 40 meq Propranolol HCl (Inderal La) 80 mg PO DAILY [facility] Propranolol HCl (Inderal La) 80 mg PO 2300 [facility] Last Admin: 02/01/18 22:12 Dose: 80 mg MAR Pulse and Blood Pressure Document 02/01/18 22:12 CDL (Rec: 02/01/18 22:13 CDL [id number]) Pulse Pulse Rate (60-90) 82 Blood Pressure Blood Pressure (100/60-150/90) 136/68 Propranolol HCl (Inderal La) 80 mg PO ONCE ONE Stop: 01/31/18 01:04 Last Admin: 01/31/18 01:08 Dose: 80 mg MAR Pulse and Blood Pressure Document 01/31/18 01:08 AP (Rec: 01/31/18 01:08 AP [id number]) Pulse Pulse Rate (60-90) 92 Blood Pressure Blood Pressure (100/60-150/90) 124/71 Silver Sulfadiazine (Silvadene 1% 25 Gm) 0 gm TP DAILY [facility] Last Admin: 02/02/18 10:57 Dose: Ticagrelor (Brilinta) 180 mg PO ONCE ONE Stop: 01/31/18 16:01 Last Admin: 01/31/18 17:20 Dose: 180 mg Ticagrelor (Brilinta) 90 mg PO BID [facility] Last Admin: 02/02/18 09:24 Dose: 90 mg <Steven Parada - Last Filed: 01/30/18 23:34> - PA / ENVIRONMENTAL SERVICES MANAGER / Resident Statement /DO has reviewed & agrees with the documentation as recorded. MD/DO has examined the patient and agrees with the treatment plan. - Scribe Statement The provider has reviewed the documentation as recorded by the Scribe <Keaton Heredia - Last Filed: 02/04/18 07:31> - Scribe Statement Hardik Benitez Provider Scribe Attestation: All medical record entries made by the Scribe were at my direction and personally dictated by me. I have reviewed the chart and agree that the record accurately reflects my personal performance of the history, physical exam, medical decision making, and the department course for this patient. I have also personally directed, reviewed, and agree with the discharge instructions and disposition. (Keaton Heredia) Disposition/Present on Arrival - Present on Arrival Any Indicators Present on Arrival: No History of DVT/PE: No History of Uncontrolled Diabetes: No Urinary Catheter: No History of Decub. Ulcer: No History Surgical Site Infection Following: None - Disposition Have Diagnosis and Disposition been Completed?: Yes Disposition Time: 22:04 Patient Plan: Admission, Telemetry <Steven Parada - Last Filed: 01/30/18 23:34> <Keaton Heredia - Last Filed: 02/04/18 07:31> - Disposition Diagnosis: NSTEMI (non-ST elevated myocardial infarction) Disposition: HOSPITALIZED Condition: FAIR
[2018-01-30 20:45] LABS: BASO # 0.03 K/mm3 (0.0-2.0); BASO % 0.3 % (0.0-3.0); EOS # 0.5 (0.0-0.7); EOS % 4.6 % (1.5-5.0); GRAN # 7.53 (1.4-6.5); GRAN % 70.6 % (50.0-68.0); HEMOGLOBIN 9.4 g/dL (14.0-18.0); LYMPH % 18.3 % (22.0-35.0); MEAN CELL VOLUME 70.5 fl (80.0-105.0); MEAN CORPUSCULAR HEMOGLOBIN 21.7 pg (25.0-35.0); MEAN CORPUSCULAR HGB CONC 30.7 g/dl (31.0-37.0); MEAN PLATELET VOLUME 8.6 fl (7.0-11.0); MONO # 0.7 (0.1-0.6); MONO % 6.2 % (1.0-6.0); RBC 4.34 10^6/uL (3.5-6.1); RED CELL DISTRIBUTION WIDTH 17.4 % (11.5-14.5); WHITE BLOOD COUNT 10.7 10^3/ul (4.5-11.0)
[2018-01-30 20:49] LABS: INR 1.05
[2018-01-30 20:51] LABS: PARTIAL THROMBOPLASTIN TIME 29.8 Seconds (25.1-36.5)
[2018-01-30 20:54] LABS: ALB/GLOB RATIO 1.2 (1.1-1.8); ALBUMIN 4.1 g/dL (3.0-4.8); ALT/SGPT 21 U/L (7-56); AST/SGOT 34 U/L (17-59); BLOOD UREA NITROGEN 22 mg/dL (7-21); GFR AFRICAN-AMERICAN > 60; GFR NON-AFRICAN AMERICAN 53
[2018-01-30 21:13] LABS: B-TYPE NATRIURETIC PEPTIDE 1020 pg/mL (0-450); TROPONIN I 0.97 ng/mL
[2018-01-30] MEDS ORDERED: Heparin25000 units/250ml 1/2NS 25,000 UNITS/250 ML BAG IV SCH (21:30)
[2018-01-30] MEDS ORDERED: Aspirin 325 mg EC Tablets PO STA (22:30)
[2018-01-30] MEDS ORDERED: guaiFENesin DM 200 mg-20 mg/10 ml UD PO PRN (23:44)
--- NOTE | 2018-01-31 00:12 | CP.PCM.HP ---
History of Present Illness - History of Present Illness History of Present Illness: Harman Patterson D.O. Internal Medicine Resident, PGY-1. History and Physical for Dr Rafael Barone: Productive cough for 1 week HPI: 77 y/o male with PMH of HTN, HLD, DM2, chronic right foot ulcer, CHF, ICD, COPD , severe PVD. presents to ED with productive cough with yellow/clear sputum that started one week ago with URI syptoms. Patient came to ED at that time, discharged with cough drops which did not help at all and it was getting worse and decided to come today to ED. Cough is associated with SOB that lasts 2-3 seconds with exertion. Patient denied associated symptoms of chest pain, hemoptysis, fever, chills, wheezing, palpitations, dizziness. He sleeps on 3 pillows for years, activity level is limited to climbing one flight of steps at home few times a day and dinning out sometimes. 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 His last echo was done 4 month ago, records unavailable, but last echo [place] [facility] shows EF 55%, LVH. Patient had severe PVD for which he went peripheral cath with Dr Crane at [facility] [place] that shows severe right ant/post tibial stenosis for which bypass surgery was recommended if the right foot ulcer does not heal, left renal artery stent was placed 2/2 severe stenosis. Patient also had ICD placed and is currently taking ASA and Brilenta. BMH: HTN, HLD, DM2, chronic right foot ulcer, CHF, ICD, COPD, severe PVD PSH: ICD placement, PTCA with 3 VALERIY placed, L renal artery stent MEDS: as per EMR ALL: Epinephrine Present on Admission - Present on Admission Any Indicators Present on Admission: No Review of Systems - Constitutional Constitutional: absent: Chills, Fever, Headache, Malaise, Night Sweats, Weight Loss, Weakness - EENT Eyes: absent: Blurred Vision, Change in Vision, Diplopia, Itchy Eyes Nose/Mouth/Throat: absent: Nasal Congestion, Nose Pain, Change in Voice, Dry Mouth, Dysphagia - Cardiovascular Cardiovascular: Dyspnea on Exertion, Leg Ulcers (RIGHT CHRONIC FOOT ULCER), Orthopnea. absent: Chest Pain, Claudication, Leg Edema, Pedal Edema, Radiating Pain - Respiratory Respiratory: Cough, Dyspnea on Exertion, Chest Congestion, Excessive Mucous Production, Change in Mucous Color, Pain with Coughing. absent: Hemoptysis, Wheezing - Gastrointestinal Gastrointestinal: absent: Cramping, Diarrhea, Dyspepsia, Fecal Incontinence, Loose Stools - Genitourinary Genitourinary: absent: Pyuria, Nocturia, Urinary Hesitance, Freq UTI - Musculoskeletal Musculoskeletal: absent: Arthralgias, Atrophy, Joint Swelling, Muscle Weakness, Myalgias, Tingling - Integumentary Integumentary: absent: Bleeding Lesions, Change in Pigmentation - Neurological Neurological: absent: Behavioral Changes, Burning Sensations, Dizziness, Numbness, Headaches, Radicular Pain - Psychiatric Psychiatric: absent: Anxiety, Behavioral Changes, Confusion, Depression - Endocrine Endocrine: absent: Change in Body Appearance, Polydipsia, Polyphagia, Polyuria - Hematologic/Lymphatic Hematologic: absent: Easy Bleeding, Easy Bruising Past Patient History - Infectious Disease Hx of Infectious Diseases: None - Past Social History Smoking Status: Former Smoker - CARDIAC Hx Cardiac Disorders: Yes Hx Congestive Heart Failure: Yes Hx Hypertension: Yes Hx Pacemaker: Yes - PULMONARY Hx Respiratory Disorders: Yes Hx Asthma: Yes Hx Chronic Obstructive Pulmonary Disease (COPD): Yes - NEUROLOGICAL Hx Neurological Disorder: No - HEENT Hx HEENT Problems: No - RENAL Hx Chronic Kidney Disease: No - ENDOCRINE/METABOLIC Hx Endocrine Disorders: Yes Hx Diabetes Mellitus Type 2: Yes - HEMATOLOGICAL/ONCOLOGICAL Hx Blood Disorders: Yes Hx Cancer: Yes - INTEGUMENTARY Hx Dermatological Problems: Yes Other/Comment: R diabetic foot ulcer - MUSCULOSKELETAL/RHEUMATOLOGICAL Hx Musculoskeletal Disorders: Yes Hx Arthritis: Yes - GASTROINTESTINAL Hx Gastrointestinal Disorders: No - GENITOURINARY/GYNECOLOGICAL Hx Genitourinary Disorders: No - PSYCHIATRIC Hx Psychophysiologic Disorder: No Hx Substance Use: No - SURGICAL HISTORY Hx Amputation: Yes - ANESTHESIA Hx Anesthesia: Yes Hx Anesthesia Reactions: No Hx Malignant Hyperthermia: No Meds Allergies/Adverse Reactions: Allergies Allergy/AdvReac Type Severity Reaction Status Date / Time epinephrine AdvReac DIZZINESS Verified 01/30/18 19:48 Physical Exam - Constitutional Appears: Non-toxic, No Acute Distress - Head Exam Head Exam: ATRAUMATIC, NORMAL INSPECTION, NORMOCEPHALIC - Eye Exam Eye Exam: EOMI, Normal appearance, PERRL Pupil Exam: NORMAL ACCOMODATION, PERRL - ENT Exam ENT Exam: Mucous Membranes Moist, Normal Exam - Neck Exam Neck exam: Positive for: Normal Inspection - Respiratory Exam Respiratory Exam: Decreased Breath Sounds, Clear to Auscultation Bilateral, NORMAL BREATHING PATTERN. absent: Rhonchi, Wheezes - Cardiovascular Exam Cardiovascular Exam: Bradycardia, REGULAR RHYTHM, +S1, +S2 - GI/Abdominal Exam GI & Abdominal Exam: Normal Bowel Sounds, Soft. absent: Tenderness - Extremities Exam Extremities exam: Negative for: calf tenderness, normal capillary refill, pedal edema - Back Exam Back exam: CVA tenderness (R), NORMAL INSPECTION, rash noted. absent: CVA tenderness (L) - Neurological Exam Neurological exam: Alert, CN II-XII Intact, Normal Gait, Oriented x3, Reflexes Normal - Psychiatric Exam Psychiatric exam: Normal Affect, Normal Mood - Skin Skin Exam: Dry, Intact, Normal Color, Warm Results - Vital Signs Recent Vital Signs: Last Vital Signs Temp 97.9 F 01/30/18 20:00 Pulse 84 01/30/18 20:00 Resp 18 01/30/18 20:00 BP 135/77 01/30/18 23:09 Pulse Ox 99 01/30/18 20:00 - Labs Result Diagrams: 01/31/18 06:10 01/30/18 20:25 - EKG Data EKG Interpreted by: Other EKG shows normal: Sinus rhythm, Intervals Assessment & Plan - Assessment and Plan (Free Text) Assessment: 77 y/o male with PMH of HTN, HLD, DM2, chronic right foot ulcer, CHF, ICD, COPD , severe PVD admitted for productive cough with yellow/clear sputum that started one week ago with URI syptoms. EKG shows 1st degree HB, Troponin 0.97 x1. Plan: 1.NSTEMI Known hx of CAD EKG showed 1st degree HB, no specific T-wave changes First troponin 0.97, will continue to trend ASA 325 mg give once, continue 81 mg Started on heparin gtt Continue home lipitor 20 Loaded Plavix, continue 75 mg daily Cardio consulted 2.Pneumonia CXR 01/30/18 shows left lower lobe consolidation Started on Levaquin 750 mg QD day 1 Started robitussin DM PRN for cough O2 by NC @ 2L 3. Chronic right foot ulcer Consulted podiatry 4. Microcytic hypochromic anemia Likely 2/2 chronic disease No active bleeding HD stable Ordered TIBC, iron, ferritin, B12, folate Hgb electrophoresis 5. DM2 HbA1c ordered Accu check achs RISS med GI/DVT ppx: pantoprazole/on heparin gtt - Date & Time Date: 01/31/18 (n) Time: 01:07
[2018-01-31] MEDS ORDERED: Propranolol 80 mg ER Cap PO ONE (01:03)
[2018-01-31 02:00] VITALS: BMI 24.7
[2018-01-31 02:33] LABS: TROPONIN I 1.1 ng/mL
[2018-01-31 06:37] LABS: BASO # 0.03 K/mm3 (0.0-2.0); BASO % 0.3 % (0.0-3.0); EOS # 0.6 (0.0-0.7); EOS % 5.3 % (1.5-5.0); GRAN # 8.01 (1.4-6.5); GRAN % 70.9 % (50.0-68.0); HEMOGLOBIN 9.1 g/dL (14.0-18.0); LYMPH % 17.7 % (22.0-35.0); MEAN CELL VOLUME 70.9 fl (80.0-105.0); MEAN CORPUSCULAR HEMOGLOBIN 21.2 pg (25.0-35.0); MEAN CORPUSCULAR HGB CONC 29.9 g/dl (31.0-37.0); MEAN PLATELET VOLUME 8.7 fl (7.0-11.0); MONO # 0.7 (0.1-0.6); MONO % 5.8 % (1.0-6.0); RBC 4.29 10^6/uL (3.5-6.1); RED CELL DISTRIBUTION WIDTH 17.7 % (11.5-14.5); WHITE BLOOD COUNT 11.3 10^3/ul (4.5-11.0)
[2018-01-31 06:51] LABS: INR 1.14; PROTHROMBIN TIME 13.1 SECONDS (9.4-12.5)
[2018-01-31 06:52] LABS: IRON 36 ug/dL (45-180)
[2018-01-31 06:53] LABS: ALB/GLOB RATIO 1.2 (1.1-1.8); ALT/SGPT 21 U/L (7-56); AST/SGOT 38 U/L (17-59); BLOOD UREA NITROGEN 22 mg/dL (7-21); CALCIUM 8.5 mg/dL (8.4-10.5); GFR AFRICAN-AMERICAN > 60; GFR NON-AFRICAN AMERICAN 58
[2018-01-31 07:01] LABS: % IRON SATURATION 8 % (20-55); TOTAL IRON BINDING CAPACITY 419 ug/dL (261-462)
[2018-01-31] MEDS: Insulin Reg-MEDIUM-Coverage SC SCH ×4 (07:34→21:58)
--- NOTE | 2018-01-31 08:26 | CARD ---
APPROVED REPORT Date of service: 01/30/2018 EKG Measurement Heart [id number] <Conclusion> Sinus rhythm with 1st degree AV block Nonspecific ST abnormality Abnormal ECG
[2018-01-31 08:29] LABS: PH,URINE 5.5 (4.7-8.0); URINE BILIRUBIN NEGATIVE (NEGATIVE); URINE BLOOD NEGATIVE (NEGATIVE); URINE GLUCOSE (UA) NEGATIVE (NEGATIVE); URINE LEUKOCYTE ESTERASE NEGATIVE Leu/uL (NEGATIVE); URINE PROTEIN NEGATIVE mg/dL (<30 mg/dL); URINE UROBILINOGEN 0.2 E.U./dL (<1 E.U./dL)
[2018-01-31 08:34] LABS: URINE APPEARANCE CLEAR (CLEAR); URINE COLOR YELLOW (YELLOW)
--- NOTE | 2018-01-31 08:37 | RAD ---
Date of service: 01/30/2018 HISTORY: cough COMPARISON: 01/11/2018. FINDINGS: LUNGS: The lungs are well inflated and clear. PLEURA: No significant pleural effusion identified, no pneumothorax apparent. CARDIOVASCULAR: The heart is normal in size. There is stable position of left-sided permanent pacing device. OSSEOUS STRUCTURES: No significant abnormalities. VISUALIZED UPPER ABDOMEN: Normal. OTHER FINDINGS: None. IMPRESSION: No acute findings.
[2018-01-31] MEDS: levoFLOXacin 750 mg in D5W 750 MG/150 ML BAG IVPB SCH (09:12)
[2018-01-31] MEDS ORDERED: Propranolol 80 mg ER Cap PO SCH (10:00)
[2018-01-31 10:33] LABS: TROPONIN I 0.92 ng/mL
[2018-01-31 12:39] LABS: FERRITIN 9.1 ng/mL
[2018-01-31 13:10] LABS: FOLATE 14.3 ng/mL
[2018-01-31] MEDS: Mupirocin 2% Ointment 15 GM TUBE TOP SCH ×2 (13:23→17:21)
--- NOTE | 2018-01-31 13:23 | CP.PCM.PN ---
<Brandon Elliott - Last Filed: 01/31/18 20:55> Subjective - Date & Time of Evaluation Date of Evaluation: 01/31/18 Time of Evaluation: 13:20 - Subjective Subjective: Brandon Elliott, PGY-1, Internal medicine note for Dr. Castrejon Patient seen and examined in the morning. Patient had no significant overnight events. This morning, patient complains of cough, clear sputum, chronic heart palpitations, and increased urinary frequency. Patient denies headache, dizziness, chest pain, shortness of breath, nausea, vomiting, constipation, diarrhea, abdominal pain, dysuria, and hematuria. Objective - Vital Signs/Intake and Output Vital Signs (last 24 hours): Temp Pulse Resp BP Pulse Ox 98.2 F 69 20 120/73 98 01/31/18 12:00 01/31/18 12:00 01/31/18 12:00 01/31/18 12:00 01/31/18 06:00 Intake and Output: 01/31/18 01/31/18 06:59 18:59 Intake Total 328 Output Total 300 Balance 28 - Medications Medications: Current Medications Aspirin (Ecotrin) 81 mg PO DAILY [facility] Last Admin: 01/31/18 09:12 Dose: 81 mg Atorvastatin Calcium (Lipitor) 20 mg PO DIN [facility] Clopidogrel Bisulfate (Plavix) 75 mg PO DAILY [facility] Last Admin: 01/31/18 09:12 Dose: 75 mg Guaifenesin/Dextromethorphan (Robitussin Dm) 10 ml PO Q4H PRN PRN Reason: Cough Last Admin: 01/31/18 01:08 Dose: 10 ml Levofloxacin/Dextrose (Levaquin 750mg) 750 mg in 150 mls @ 100 mls/hr IVPB DAILY [facility] PRN Reason: Protocol Stop: 02/03/18 23:59 Last Admin: 01/31/18 09:12 Dose: 100 mls/hr Insulin Human Regular (Humulin R Med) 0 units SC ACHS [facility] PRN Reason: Protocol Last Admin: 01/31/18 07:34 Dose: Not Given Mupirocin (Bactroban Ointment) 0 gm TOP BID [facility] Ondansetron HCl (Zofran Inj) 4 mg IVP Q6H PRN PRN Reason: Nausea/Vomiting Pantoprazole Sodium (Protonix Inj) 40 mg IVP DAILY [facility] Last Admin: 01/31/18 09:12 Dose: 40 mg Propranolol HCl (Inderal La) 80 mg PO 2300 [facility] Silver Sulfadiazine (Silvadene 1% 25 Gm) 0 gm TP DAILY [facility] - Labs Labs: 01/31/18 06:10 01/31/18 06:10 PT 13.1 SECONDS (9.4-12.5) H 01/31/18 06:10 INR 1.14 01/31/18 06:10 APTT 36.2 Seconds (25.1-36.5) 01/31/18 12:40 - Constitutional Appears: Well, Non-toxic - Head Exam Head Exam: ATRAUMATIC, NORMOCEPHALIC - Eye Exam Eye Exam: EOMI Pupil Exam: PERRL - Respiratory Exam Respiratory Exam: Decreased Breath Sounds, NORMAL BREATHING PATTERN - Cardiovascular Exam Cardiovascular Exam: REGULAR RHYTHM, RRR - GI/Abdominal Exam GI & Abdominal Exam: Soft, Normal Bowel Sounds - Extremities Exam Extremities Exam: Full ROM, Normal Inspection - Neurological Exam Neurological Exam: Alert, Awake, CN II-XII Intact, Oriented x3 Neuro motor strength exam: Left Upper Extremity: 5, Right Upper Extremity: 5, Left Lower Extremity: 5, Right Lower Extremity: 5 - Psychiatric Exam Psychiatric exam: Normal Affect, Normal Mood - Skin Skin Exam: Dry, Intact, Normal Color Assessment and Plan - Assessment and Plan (Free Text) Assessment: 77 year old male with past medical history of hypertension, hyperlipidemia, diabetes, chronic right foot ulcer, BPH, CHF, ICD placement, COPD, and severe PVD presented with productive cough with green sputum one week ago. Plan: NSTEMI -S/p ICD placement -Troponin values: 0.92, 1.10, and 0.97 -EKG on 01/31 shows sinus rhythm with 1st degree AV block with heart rate of 80 bpm. -BNP: 1020 -Catherization took place at 2 pm 01/31. Catherization shows circ 99% stenosis, distal RCA 90% stenosis, and mid RCA 80% stenosis. 3 VALERIY placed in distal RCA, mid RCA, and mid circumflex artery. -ASA 325 given once last night, now on ASA 81 -Plavix 75 -Lipitor 20 -Heparin GGT -Cardiology, Dr. House, consulted. -Prophylactic augmentin for ICD restarted by Dr. Sheridan. Chronic right foot heel ulceration -Podiatry, Dr. Tolbert, dressed wound with silvadene, mupirocin, gauze, ABD, and kirlix. -Per podiatry, no plan for surgical intervention. -Podiatry will continue to follow while patient in house. Leukocytosis 2/2 to stress vs. pneumonia -WBC: 11.3 from 10.7 likely due to stress -Chest X ray 01/30: shows no infiltrate as read by radiologist -Sandrine possible discontinuation due to doubtful infectious process. Microcytic Anemia -Hemoglobin: 9.1 from 9.4. Baseline from previous visits is 9-10. -MCV: 70.9 from 70.5 -Ferritin: 9.1 -Iron: 36 (low) -TIBC: 36 -% saturation: 8 (low) -Vitamin B12: 291 -Folate: 14.3 -Patient has suspected iron deficiency anemia. Patient will be started on ferrous gluconate 324 mg PO TID. Elevated Glucose 2/2 to hx of diabetes -Glucose: 167 -Continue patient on lispro insulin sliding scale. <Rama Castrejon - Last Filed: 02/01/18 16:04> Objective - Vital Signs/Intake and Output Vital Signs (last 24 hours): Temp Pulse Resp BP Pulse Ox 98.4 F 73 16 120/51 L 97 02/01/18 12:00 02/01/18 14:00 02/01/18 12:00 02/01/18 12:00 02/01/18 06:00 Intake and Output: 02/01/18 02/01/18 06:59 18:59 Intake Total 480 Balance 480 - Medications Medications: Current Medications Aspirin (Ecotrin) 81 mg PO DAILY [facility] Last Admin: 02/01/18 10:57 Dose: 81 mg Atorvastatin Calcium (Lipitor) 20 mg PO DIN [facility] Last Admin: 01/31/18 17:20 Dose: 20 mg Ferrous Sulfate (Feosol) 324 mg PO TID [facility] Furosemide (Lasix) 40 mg PO DAILY [facility] Last Admin: 02/01/18 10:58 Dose: 40 mg Glyburide (Micronase) 5 mg PO 0800,1700 [facility] Guaifenesin/Dextromethorphan (Robitussin Dm) 10 ml PO Q4H PRN PRN Reason: Cough Last Admin: 01/31/18 01:08 Dose: 10 ml Insulin Human Regular (Humulin R Med) 0 units SC ACHS [facility] PRN Reason: Protocol Last Admin: 02/01/18 11:50 Dose: 3 units Levofloxacin (Levaquin) 750 mg PO Q48H [facility] PRN Reason: Protocol Multivitamins (Thera Tab) 1 tab PO 0800 [facility] Mupirocin (Bactroban Ointment) 0 gm TOP BID [facility] Last Admin: 02/01/18 10:52 Dose: Not Given Ondansetron HCl (Zofran Inj) 4 mg IVP Q6H PRN PRN Reason: Nausea/Vomiting Pantoprazole Sodium (Protonix Ec Tab) 40 mg PO ACB [facility] Propranolol HCl (Inderal La) 80 mg PO 2300 [facility] Last Admin: 01/31/18 22:00 Dose: 80 mg Silver Sulfadiazine (Silvadene 1% 25 Gm) 0 gm TP DAILY [facility] Last Admin: 02/01/18 10:58 Dose: Not Given Ticagrelor (Brilinta) 90 mg PO BID [facility] Last Admin: 02/01/18 10:52 Dose: Not Given - Labs Labs: 02/01/18 06:30 02/01/18 06:30 PT 13.1 SECONDS (9.4-12.5) H 01/31/18 06:10 INR 1.14 01/31/18 06:10 APTT 36.2 Seconds (25.1-36.5) 01/31/18 12:40 Attending/Attestation - Attestation I have personally seen and examined this patient.: Yes I have fully participated in the care of the patient.: Yes I have reviewed all pertinent clinical information, including history, physical exam and plan: Yes Notes (Text): 02/01/18 15:59 Attending note; Patient seen and examined with resident. Patient is a 77 year old male with past medical history of hypertension, hyperlipidemia, diabetes, chronic right foot ulcer, BPH, CHF, ICD placement, COPD, and severe PVD presented with productive cough with green sputum one week ago. Chest x-ray showed no acute infiltrate. Treated with levofloxacin for bronchitis. Patient had elevated troponin. Case discussed with cardiology in detail. Plan for cardiac cath today. Anemia; chronic. Denies any complaints. No active bleeding. Chronic peripheral vascular disease and foot ulcer. Continue local care by podiatry. Follow up with ID . Patient is afebrile and nontoxic. Upon discharge the patient will follow-up with PMD Dr. Bowling. 02/01/18 16:03
[2018-01-31] MEDS: Silver Sulfadiazine 1% Cream (25 gm) TP SCH (13:24)
[2018-01-31] MEDS ORDERED: Lidocaine 2% Inj (20ml) ONE (14:10)
[2018-01-31] MEDS ORDERED: Iohexol 350mgl/ml 50 ML ONE (14:10)
[2018-01-31] MEDS ORDERED: Iodixanol 320 MG/ML 100 ML BOTTLE IV ONE (14:11)
[2018-01-31] MEDS ORDERED: Iodixanol 320 MG/ML 200 ML BOTTLE IV ONE (14:11)
--- NOTE | 2018-01-31 14:17 | CP.PCM.CON ---
<Jerry Brown - Last Filed: 01/31/18 14:11> History of Present Illness - History of Present Illness History of Present Illness: Podiatry Consult note for Dr. Tolbert 77M well known to our service with PMHx HTN, HLD, DM2, chronic right foot ulcer , CHF, ICD, COPD, severe PVD and pacemaker placement seen at bedside for chronic right foot heel ulceration. Patient's is present as well. Patient has had wound for over three years. Denies any new changes to the wound since [facility]. Denies any pain to the area. Denies any other new pedal complaints at this time. Patient is AAO x 3 and NAD during examination. Denies any recent N/V/F/C/CP/SOB/D. Review of Systems - Review of Systems All systems: reviewed and no additional remarkable complaints except Review of Systems: as per HPI Past Patient History - Infectious Disease Hx of Infectious Diseases: None - Past Social History Smoking Status: Former Smoker - CARDIAC Hx Cardiac Disorders: Yes Hx Congestive Heart Failure: Yes Hx Hypertension: Yes Hx Pacemaker: Yes - PULMONARY Hx Respiratory Disorders: Yes Hx Asthma: Yes Hx Chronic Obstructive Pulmonary Disease (COPD): Yes - NEUROLOGICAL Hx Neurological Disorder: No - HEENT Hx HEENT Problems: No - RENAL Hx Chronic Kidney Disease: No - ENDOCRINE/METABOLIC Hx Endocrine Disorders: Yes Hx Diabetes Mellitus Type 2: Yes - HEMATOLOGICAL/ONCOLOGICAL Hx Blood Disorders: Yes Hx Cancer: Yes - INTEGUMENTARY Hx Dermatological Problems: Yes Other/Comment: R diabetic foot ulcer - MUSCULOSKELETAL/RHEUMATOLOGICAL Hx Musculoskeletal Disorders: Yes Hx Arthritis: Yes - GASTROINTESTINAL Hx Gastrointestinal Disorders: No - GENITOURINARY/GYNECOLOGICAL Hx Genitourinary Disorders: No - PSYCHIATRIC Hx Psychophysiologic Disorder: No Hx Substance Use: No - SURGICAL HISTORY Hx Amputation: Yes - ANESTHESIA Hx Anesthesia: Yes Hx Anesthesia Reactions: No Hx Malignant Hyperthermia: No Meds Allergies/Adverse Reactions: Allergies Allergy/AdvReac Type Severity Reaction Status Date / Time epinephrine AdvReac DIZZINESS Verified 01/30/18 19:48 - Medications Medications: Current Medications Aspirin (Ecotrin) 81 mg PO DAILY [facility] Last Admin: 01/31/18 09:12 Dose: 81 mg Atorvastatin Calcium (Lipitor) 20 mg PO DIN [facility] Clopidogrel Bisulfate (Plavix) 75 mg PO DAILY [facility] Last Admin: 01/31/18 09:12 Dose: 75 mg Ferrous Gluconate (Fergon) 324 mg PO TID [facility] Guaifenesin/Dextromethorphan (Robitussin Dm) 10 ml PO Q4H PRN PRN Reason: Cough Last Admin: 01/31/18 01:08 Dose: 10 ml Levofloxacin/Dextrose (Levaquin 750mg) 750 mg in 150 mls @ 100 mls/hr IVPB DAILY [facility] PRN Reason: Protocol Stop: 02/03/18 23:59 Last Admin: 01/31/18 09:12 Dose: 100 mls/hr Insulin Human Regular (Humulin R Med) 0 units SC ACHS [facility] PRN Reason: Protocol Last Admin: 01/31/18 13:22 Dose: Not Given Mupirocin (Bactroban Ointment) 0 gm TOP BID [facility] Last Admin: 01/31/18 13:23 Dose: 1 applic Ondansetron HCl (Zofran Inj) 4 mg IVP Q6H PRN PRN Reason: Nausea/Vomiting Pantoprazole Sodium (Protonix Inj) 40 mg IVP DAILY [facility] Last Admin: 01/31/18 09:12 Dose: 40 mg Propranolol HCl (Inderal La) 80 mg PO 2300 [facility] Silver Sulfadiazine (Silvadene 1% 25 Gm) 0 gm TP DAILY [facility] Last Admin: 01/31/18 13:24 Dose: 25 gm Physical Exam - Constitutional Appears: Well, Non-toxic, No Acute Distress - Extremities Exam Additional comments: RLE focused exam: Vasc: DP/PT pulses faintly palpable 1/4 b/l. Skin temperature warm to warm from proximal to distal. CFT < 3 seconds to all digits b/l. No edema noted b/l Neuro: Epicritic and protective sensation grossly absent b/l Derm: Approximately 13 cm x 5 cm x 0.5 cm ulceration noted to medial heel of right foot. Dry stable eschar noted at wound base. No drainage, no malodor, no erythema, no purulence, no fluctuance, no tracking/tunneling/undermining, no probe to bone. No other clinical signs of infection. No other dermatological abnormalities noted at this time MSK: No tenderness on palpation to wound site. ROM WNL to all major joints. Muscle strength 5/5 in all major muscle groups. No other gross deformities noted - Neurological Exam Neurological exam: Alert, Oriented x3 - Psychiatric Exam Psychiatric exam: Normal Affect, Normal Mood Results - Vital Signs Recent Vital Signs: Last Vital Signs Temp 98.2 F 01/31/18 12:00 Pulse 69 01/31/18 12:00 Resp 20 01/31/18 12:00 BP 120/73 01/31/18 12:00 Pulse Ox 98 01/31/18 06:00 - Labs Result Diagrams: 01/31/18 06:10 01/31/18 06:10 Labs: Laboratory Results - last 24 hr 01/31/18 01/31/18 01/31/18 01:50 01:50 06:10 WBC 11.3 H RBC 4.29 Hgb 9.1 L Hct 30.4 L MCV 70.9 L MCH 21.2 L MCHC 29.9 L RDW 17.7 H Plt Count 385 MPV 8.7 Gran % 70.9 H Lymph % (Auto) 17.7 L Glynn % (Auto) 5.8 Eos % (Auto) 5.3 H Baso % (Auto) 0.3 Gran # 8.01 H Lymph # (Auto) 2.0 Glynn # (Auto) 0.7 H Eos # (Auto) 0.6 Baso # (Auto) 0.03 PT INR APTT Sodium Potassium Chloride Carbon Dioxide Anion Gap BUN Creatinine Est GFR ( Amer) Est GFR (Non-Af Amer) POC Glucose (mg/dL) Random Glucose Hemoglobin A1c 7.9 H Calcium Phosphorus Magnesium Iron TIBC % Saturation Ferritin 9.1 Total Bilirubin AST ALT Alkaline Phosphatase Lactate Dehydrogenase 413 Total Creatine Kinase 183 Troponin I 1.10 H* Total Protein Albumin Globulin Albumin/Globulin Ratio Vitamin B12 291 Folate 14.3 Urine Color Urine Appearance Urine pH Ur Specific [place] Urine Protein Urine Glucose (UA) Urine Ketones Urine Blood Urine Nitrate Urine Bilirubin Urine Urobilinogen Ur Leukocyte Esterase 01/31/18 01/31/18 01/31/18 06:10 06:10 06:10 WBC RBC Hgb Hct MCV MCH MCHC RDW Plt Count MPV Gran % Lymph % (Auto) Glynn % (Auto) Eos % (Auto) Baso % (Auto) Gran # Lymph # (Auto) Glynn # (Auto) Eos # (Auto) Baso # (Auto) PT 13.1 H INR 1.14 APTT 93.0 H Sodium 141 Potassium 3.9 Chloride 99 Carbon Dioxide 28 Anion Gap 17 BUN 22 H Creatinine 1.2 Est GFR ( Amer) > 60 Est GFR (Non-Af Amer) 58 POC Glucose (mg/dL) Random Glucose 131 H Hemoglobin A1c Calcium 8.5 Phosphorus 3.7 Magnesium 1.8 Iron 36 L TIBC 419 % Saturation 8 L Ferritin Total Bilirubin 0.4 AST 38 ALT 21 Alkaline Phosphatase 99 Lactate Dehydrogenase Total Creatine Kinase Troponin I Total Protein 7.4 Albumin 4.0 Globulin 3.4 Albumin/Globulin Ratio 1.2 Vitamin B12 Folate Urine Color Urine Appearance Urine pH Ur Specific [place] Urine Protein Urine Glucose (UA) Urine Ketones Urine Blood Urine Nitrate Urine Bilirubin Urine Urobilinogen Ur Leukocyte Esterase 01/31/18 01/31/18 01/31/18 06:45 07:10 09:50 WBC RBC Hgb Hct MCV MCH MCHC RDW Plt Count MPV Gran % Lymph % (Auto) Glynn % (Auto) Eos % (Auto) Baso % (Auto) Gran # Lymph # (Auto) Glynn # (Auto) Eos # (Auto) Baso # (Auto) PT INR APTT Sodium Potassium Chloride Carbon Dioxide Anion Gap BUN Creatinine Est GFR ( Amer) Est GFR (Non-Af Amer) POC Glucose (mg/dL) 125 H Random Glucose Hemoglobin A1c Calcium Phosphorus Magnesium Iron TIBC % Saturation Ferritin Total Bilirubin AST ALT Alkaline Phosphatase Lactate Dehydrogenase 432 Total Creatine Kinase 140 Troponin I 0.92 H* Total Protein Albumin Globulin Albumin/Globulin Ratio Vitamin B12 Folate Urine Color Yellow Urine Appearance Clear Urine pH 5.5 Ur Specific [place] 1.010 Urine Protein Negative Urine Glucose (UA) Negative Urine Ketones Negative Urine Blood Negative Urine Nitrate Negative Urine Bilirubin Negative Urine Urobilinogen 0.2 Ur Leukocyte Esterase Negative 01/31/18 01/31/18 11:02 12:40 WBC RBC Hgb Hct MCV MCH MCHC RDW Plt Count MPV Gran % Lymph % (Auto) Glynn % (Auto) Eos % (Auto) Baso % (Auto) Gran # Lymph # (Auto) Glynn # (Auto) Eos # (Auto) Baso # (Auto) PT INR APTT 36.2 Sodium Potassium Chloride Carbon Dioxide Anion Gap BUN Creatinine Est GFR ( Amer) Est GFR (Non-Af Amer) POC Glucose (mg/dL) 167 H Random Glucose Hemoglobin A1c Calcium Phosphorus Magnesium Iron TIBC % Saturation Ferritin Total Bilirubin AST ALT Alkaline Phosphatase Lactate Dehydrogenase Total Creatine Kinase Troponin I Total Protein Albumin Globulin Albumin/Globulin Ratio Vitamin B12 Folate Urine Color Urine Appearance Urine pH Ur Specific [place] Urine Protein Urine Glucose (UA) Urine Ketones Urine Blood Urine Nitrate Urine Bilirubin Urine Urobilinogen Ur Leukocyte Esterase Assessment & Plan - Assessment and Plan (Free Text) Assessment: 77M well known to our service seen at bedside for chronic right foot heel ulceration Plan: Patient seen and evaluated with Dr. Tolbert Afebrile, WBC 11.3 Continue abx per ID Wound dressed with Silvadene, Mupirocin, gauze, ABD, kirlix No plan for surgical intervention at this time Podiatry will continue to follow while patient in house - Date & Time Date: 01/31/18 Time: 14:24 <Radha Tolbert - Last Filed: 02/02/18 07:58> Meds - Medications Medications: Current Medications Amoxicillin/Clavulanate Potassium (Augmentin 875 Mg-125 Mg Tab) 1 tab PO Q12 [facility] PRN Reason: Protocol Last Admin: 02/01/18 22:32 Dose: 1 tab Aspirin (Ecotrin) 81 mg PO DAILY [facility] Last Admin: 02/01/18 10:57 Dose: 81 mg Atorvastatin Calcium (Lipitor) 20 mg PO DIN [facility] Last Admin: 02/01/18 17:50 Dose: 20 mg Ferrous Sulfate (Feosol) 324 mg PO TID [facility] Last Admin: 02/01/18 17:50 Dose: 324 mg Furosemide (Lasix) 40 mg PO DAILY [facility] Last Admin: 02/01/18 10:58 Dose: 40 mg Glyburide (Micronase) 5 mg PO 0800,1700 [facility] Last Admin: 02/01/18 17:52 Dose: 5 mg Guaifenesin/Dextromethorphan (Robitussin Dm) 10 ml PO Q4H PRN PRN Reason: Cough Last Admin: 01/31/18 01:08 Dose: 10 ml Insulin Human Regular (Humulin R Med) 0 units SC ACHS [facility] PRN Reason: Protocol Last Admin: 02/01/18 23:11 Dose: Not Given Multivitamins (Thera Tab) 1 tab PO 0800 [facility] Mupirocin (Bactroban Ointment) 0 gm TOP BID [facility] Last Admin: 02/01/18 17:48 Dose: Not Given Ondansetron HCl (Zofran Inj) 4 mg IVP Q6H PRN PRN Reason: Nausea/Vomiting Pantoprazole Sodium (Protonix Ec Tab) 40 mg PO ACB [facility] Last Admin: 02/02/18 06:55 Dose: 40 mg Propranolol HCl (Inderal La) 80 mg PO 2300 [facility] Last Admin: 02/01/18 22:12 Dose: 80 mg Silver Sulfadiazine (Silvadene 1% 25 Gm) 0 gm TP DAILY [facility] Last Admin: 02/01/18 10:58 Dose: Not Given Ticagrelor (Brilinta) 90 mg PO BID [facility] Last Admin: 02/01/18 17:51 Dose: 90 mg Results - Vital Signs Recent Vital Signs: Last Vital Signs Temp 98.2 F 02/02/18 05:51 Pulse 69 02/02/18 05:51 Resp 18 02/02/18 05:51 BP 124/58 L 02/02/18 05:51 Pulse Ox 97 02/02/18 05:51 - Labs Result Diagrams: 02/01/18 06:30 02/01/18 06:30 Labs: Laboratory Results - last 24 hr 01/31/18 01/31/18 01/31/18 07:00 16:59 21:23 Hemoglobin A 97.4 Hemoglobin A2 1.6 L Hemoglobin C 0.0 Hemoglobin F () <1.0 Hemoglobin S 0.0 Variant Hemoglobin 0.0 Hemoglobinopathy Interp See note Sodium Potassium Chloride Carbon Dioxide Anion Gap BUN Creatinine Est GFR ( Amer) Est GFR (Non-Af Amer) POC Glucose (mg/dL) 93 114 H Random Glucose Hemoglobin A1c Calcium Phosphorus Magnesium Iron TIBC % Saturation Ferritin Total Bilirubin AST ALT Alkaline Phosphatase Total Protein Albumin Globulin Albumin/Globulin Ratio Triglycerides Cholesterol LDL Cholesterol Direct HDL Cholesterol Vitamin B12 Folate TSH 3rd Generation 02/01/18 02/01/18 02/01/18 06:30 06:30 06:30 Hemoglobin A Hemoglobin A2 Hemoglobin C Hemoglobin F () Hemoglobin S Variant Hemoglobin Hemoglobinopathy Interp Sodium 141 Potassium 3.7 Chloride 102 Carbon Dioxide 29 Anion Gap 14 BUN 20 Creatinine 1.3 Est GFR ( Amer) > 60 Est GFR (Non-Af Amer) 53 POC Glucose (mg/dL) Random Glucose 86 Hemoglobin A1c 7.8 H Calcium 8.1 L Phosphorus 3.1 Magnesium 1.8 Iron TIBC % Saturation Ferritin Total Bilirubin 0.3 AST 40 ALT 24 Alkaline Phosphatase 86 Total Protein 6.8 Albumin 3.5 Globulin 3.3 Albumin/Globulin Ratio 1.1 Triglycerides 187 H Cholesterol 128 L LDL Cholesterol Direct 69 HDL Cholesterol 21 L Vitamin B12 Folate TSH 3rd Generation 2.50 02/01/18 02/01/18 02/01/18 06:30 06:30 07:28 Hemoglobin A Hemoglobin A2 Hemoglobin C Hemoglobin F () Hemoglobin S Variant Hemoglobin Hemoglobinopathy Interp Sodium Potassium Chloride Carbon Dioxide Anion Gap BUN Creatinine Est GFR ( Amer) Est GFR (Non-Af Amer) POC Glucose (mg/dL) 86 Random Glucose Hemoglobin A1c Calcium Phosphorus Magnesium Iron 26 L TIBC 376 % Saturation 7 L Ferritin 13.6 Total Bilirubin AST ALT Alkaline Phosphatase Total Protein Albumin Globulin Albumin/Globulin Ratio Triglycerides Cholesterol LDL Cholesterol Direct HDL Cholesterol Vitamin B12 239 Folate 11.0 TSH 3rd Generation 02/01/18 02/01/18 02/01/18 11:24 15:58 22:03 Hemoglobin A Hemoglobin A2 Hemoglobin C Hemoglobin F () Hemoglobin S Variant Hemoglobin Hemoglobinopathy Interp Sodium Potassium Chloride Carbon Dioxide Anion Gap BUN Creatinine Est GFR ( Amer) Est GFR (Non-Af Amer) POC Glucose (mg/dL) 205 H 93 114 H Random Glucose Hemoglobin A1c Calcium Phosphorus Magnesium Iron TIBC % Saturation Ferritin Total Bilirubin AST ALT Alkaline Phosphatase Total Protein Albumin Globulin Albumin/Globulin Ratio Triglycerides Cholesterol LDL Cholesterol Direct HDL Cholesterol Vitamin B12 Folate TSH 3rd Generation 02/02/18 02/02/18 03:31 04:20 Hemoglobin A Hemoglobin A2 Hemoglobin C Hemoglobin F () Hemoglobin S Variant Hemoglobin Hemoglobinopathy Interp Sodium Potassium Chloride Carbon Dioxide Anion Gap BUN Creatinine Est GFR ( Amer) Est GFR (Non-Af Amer) POC Glucose (mg/dL) 57 L 114 H Random Glucose Hemoglobin A1c Calcium Phosphorus Magnesium Iron TIBC % Saturation Ferritin Total Bilirubin AST ALT Alkaline Phosphatase Total Protein Albumin Globulin Albumin/Globulin Ratio Triglycerides Cholesterol LDL Cholesterol Direct HDL Cholesterol Vitamin B12 Folate TSH 3rd Generation Attending/Attestation - Attestation I have personally seen and examined this patient.: Yes I have fully participated in the care of the patient.: Yes I have reviewed all pertinent clinical information: Yes
[2018-01-31] MEDS ORDERED: Midazolam 2 MG/2 ML VIAL ONE (14:30)
[2018-01-31] MEDS ORDERED: Eptifibatide 20 mg/10mL Inj IVP ONE (14:52)
[2018-01-31] MEDS ORDERED: Phenylephrine 10 mg/ml Inj ONE (15:13)
[2018-01-31] MEDS ORDERED: Sodium Chloride 0.9% 1,000 ML IV SCH (15:45)
--- NOTE | 2018-01-31 16:09 | CPOSTOP ---
Copied To: Moe House MD Attending MD: Moe House MD DATE: 01/31/2018 DICTATING PHYSICIAN: Moe House MD. RN SHIFT MGR: Dian certified pharmacy technician. TYPE OF ANESTHESIA: Moderate conscious sedation. Total dose given 1 mg of Versed, 50 of fentanyl. PRE-PROCEDURE DIAGNOSES: Unstable angina, [id number] myocardial infarction. PROCEDURES PERFORMED: 1. Left heart catheterization. 2. Stenting of circumflex, mid. 3. Stenting of distal right coronary artery. 4. Stenting of mid right coronary artery. FINDINGS: Multivessel coronary artery disease. Circ 99% stenosis, distal RCA 90% stenosis, mid RCA 80% stenosis. FINAL DIAGNOSIS: Multivessel coronary artery disease POST PROCEDURE CONDITION: Post procedure, the patient's condition is stable. VASCULAR ACCESS SITE: Right femoral artery. CLOSURE DEVICE: Angio-Seal. TOTAL DOSE OF RADIATION: 17,058.3 milligray unit. TOTAL FLUORO TIME: 12.3 minutes. Moe House MD
--- NOTE | 2018-01-31 18:56 | CARD ---
APPROVED REPORT Date of service: 01/31/2018 Procedure(s) performed: Left Heart Catheterization PTCA with Stenting of Mid Circumflex with VALERIY PTCA with Stenting of Distal RCA with VALERIY PTCA with Stenting of Mid RCA with VALERIY HISTORY The patient is a 77 year-old male with a history of : peripheral vascular disease, diabetes mellitus with insulin treatment , chronic lung disease, previous diagnostic cath, tobacco history() : The patient is a former smoker , previous PCI (The PCI date was 06/28/2014), hypertension , dyslipidemia , cerebrovascular disease , Hx of last PTCA of Left main in 2014 with VALERIY admitted with cough for more than 7-10 days and positive serial troponin ( unstable angina, NSTEMI). INDICATION The indication(s) include : non-STEMI . CASE TECHNIQUE The patient was brought urgently to the Cardiac Catheterization Laboratory in a fasting state and was prepped and draped in a sterile manner. The right femoral groin was infiltrated with 2% Lidocaine subcutaneous anesthesia. A 6 Fr x 10 cm Elburn sheath was inserted into the right femoral artery without difficulty. Coronary angiography was performed using coronary diagnostic catheters. The left coronary system was accessed and visualized with a Diagnostic,5F JL 4 CATH DXT 100 CM catheter. The right coronary system was accessed and visualized with a Diagnostic ,5F JR 4 CATH DXT 100 CM catheter. The left ventricle was accessed and visualized with a 5 Fr Pigtail 145 (Angled) catheter. Left ventricular/Aortic Valve gradient assessed on pullback. Left ventriculogram was performed in CHAVEZ projection. Closure device was deployed with a 6 Fr Angio-Seal without any complications. The patient tolerated the procedure well and there were no complications associated with the procedure. Vessel Analysis The patient's coronary anatomy is co-dominant. The left main coronary artery is a medium size vessel with patent stent. The left main bifurcates to the left anterior descending and circumflex. The left anterior descending artery is a medium size vessel with diffuse calcification noted throughout this vessel and without significant stenosis. patent stent in proximla LAD The first diagonal branch is a small size vessel with diffuse calcification noted throughout this vessel and without significant stenosis. The second diagonal branch is a small size vessel with diffuse calcification noted throughout this vessel and without significant stenosis. The circumflex artery is a medium size vessel with diffuse calcification noted throughout this vessel and with significant stenosis. There is a 95% stenosis in the mid segment. The first obtuse marginal branch is a medium size vessel with diffuse calcification noted throughout this vessel and without significant stenosis. The left posterior descending artery is a medium size vessel with diffuse calcification noted throughout this vessel and without significant stenosis. The right coronary artery is a medium size vessel with diffuse calcification noted throughout this vessel and with significant stenosis. There is a 90% stenosis in the distal segment. and 80% stenosis in Mid segment The right posterior descending artery is a small size vessel with diffuse calcification noted throughout this vessel and without significant stenosis. The right posterolateral branch is a small size vessel with diffuse calcification noted throughout this vessel and without significant stenosis. Left Ventricle The left ventricle is normal in size with normal contractility. There was no cardiomyopathy. The left ventricular ejection fraction is estimated to be 55%. The left ventricular end diastolic pressure is 20 mmHg. There was no gradient across the aortic valve upon pullback. PCI Technique Lesion Anticoagulation was achieved with Heparin and Integrellin Bollus. Percutaneous coronary intervention was performed on the mid circumflex artery segment. The lesion stenosis prior to intervention was 95% with MELODY 1 flow. A 6 Fr XB 3.5 Guide Catheter was used to engage the ostium. A Luge 182 Interventional Guidewire was used to cross the lesion. BALLOON DILATION A Balloon catheter 2.0 x 10 mm Sprinter RX was inserted and inflated up to 14.00atm for 31seconds. STENT DEPLOYMENT A drug-eluting stent STENT RESOLUTE ALETHEA 2.75 X15 was inserted and inflated up to 14.00atm for 31seconds. Final angiography reveals 0 % stenosis with MELODY 3 flow. PCI Technique Lesion 2 Percutaneous Coronary Intervention was performed on the Distal right coronary artery. The lesion stenosis prior to intervention was 90% with MLEODY 2 flow. A 6 Fr JR 4 Guide Catheter was used to engage the ostium. A Luge 182 Interventional Guidewire was used to cross the lesion. BALLOON DILATION A Balloon catheter 2.0 x 10 mm Sprinter RX was inserted and inflated up to 8.00atm for 20seconds. STENT DEPLOYMENT A drug-eluting stent STENT RESOLUTE ALETHEA 2.25 X 08 was inserted and inflated up to 12.00atm for 22seconds. Final angiography reveals 0 % stenosis with MELODY 3 flow. PCI Technique Lesion 3 Percutaneous Coronary Intervention was performed on the mid right coronary artery. The lesion stenosis prior to intervention was 80% with MELODY 3 flow. A 6 Fr JR 4 Guide Catheter was used to engage the ostium. A [place] 182 Interventional Guidewire was used to cross the lesion. BALLOON DILATION A Balloon catheter 2.0 x 10 mm Sprinter RX was inserted and inflated up to 10.00atm for 20seconds. STENT DEPLOYMENT A drug-eluting stent STENT RESOLUTE ALETHEA 2.5 X18 was inserted and inflated up to 14.00atm for 17seconds. Final angiography reveals 0 % stenosis with MELODY 3 flow. Conclusion Multi vessel CAD Patent stens in Left main and proximal LAD Mid Cx has 955, distal RCA has 90%, and Mid RCA has 80% stenoses Preserved LV FX, EF-55-60%, EDP-20 mmof hg. Successful PTCA with VALERIY of Mid Cx, distal RCA and Mid RCA. Recommendations Aggressive Medical TherapyCardiac Risk Reduction Program Continue Brilinta ans ASa 81 mg for one year. Resume Base line Meds Cc; joy Bowling / Noé / Ang Sheridan
[2018-01-31 20:32] LABS: BASO # 0.02 K/mm3 (0.0-2.0); BASO % 0.2 % (0.0-3.0); EOS # 0.3 (0.0-0.7); EOS % 2.8 % (1.5-5.0); GRAN # 9.17 (1.4-6.5); GRAN % 78.1 % (50.0-68.0); HEMOGLOBIN 8.8 g/dL (14.0-18.0); LYMPH # 1.4 (1.2-3.4); MEAN CELL VOLUME 71.3 fl (80.0-105.0); MEAN CORPUSCULAR HEMOGLOBIN 21.4 pg (25.0-35.0); MEAN PLATELET VOLUME 8.7 fl (7.0-11.0); MONO # 0.8 (0.1-0.6); MONO % 6.9 % (1.0-6.0); RBC 4.11 10^6/uL (3.5-6.1); RED CELL DISTRIBUTION WIDTH 17.8 % (11.5-14.5); WHITE BLOOD COUNT 11.7 10^3/ul (4.5-11.0)
[2018-01-31 20:42] LABS: BLOOD UREA NITROGEN 18 mg/dL (7-21); CALCIUM 8.3 mg/dL (8.4-10.5); GFR AFRICAN-AMERICAN > 60; GFR NON-AFRICAN AMERICAN > 60
--- NOTE | 2018-01-31 20:51 | CP.PCM.CON ---
History of Present Illness - History of Present Illness History of Present Illness: Infectious Disease Consultation: January 31, 2018 77 y/o male with PMH of HTN, HLD, DM2, chronic right foot ulcer, CHF, ICD, COPD , severe PVD. presents to ED with productive cough with yellow/clear sputum that started one week ago with URI syptoms. Patient came to ED at that time, discharged with cough drops which did not help at all and it was getting worse and decided to come today to ED. Cough is associated with SOB that lasts 2-3 seconds with exertion. Patient denied associated symptoms of chest pain, hemoptysis, fever, chills, wheezing, palpitations, dizziness. He sleeps on 3 pillows for years, activity level is limited to climbing one flight of steps at home few times a day and dinning out sometimes. 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 His last echo was done 4 month ago, records unavailable, but last echo at [facility] 12/2014 shows EF 55%, LVH. Patient had severe PVD for which he went peripheral cath with Dr Crane at [facility] in 12/2014 that shows severe right ant/post tibial stenosis for which bypass surgery was recommended if the right foot ulcer does not heal, left renal artery stent was placed 2/2 severe stenosis. Patient also had ICD placed and is currently taking ASA and Brilenta. Taken for cardiac cath today and had placement of 3 stents. Reason for Augmentin daily dosage was as prophylaxis to infection of the exposed pacemaker wires in the left upper chest (primary) and the large necrotic ulcer in the right lateral ankle (secondary). Noted that the patient was in the ER a week ago and discharged with diagnosis of a pneumonia. His Augmentin was increased to BID at this time by the ER. PMHx: HTN, HLD, DM Type 2, Chronic right foot ulceration with gangrene, CHF, COPD, severe PVD PSHx: ICD placement, PTCA with 3 VALERIY, left renal artery stents. Allergies: Epinephrine Social Hx: No tobacco, EtOH, or illicit drug use Active Medications Aspirin (Ecotrin) 81 mg PO DAILY [facility] Last Admin: 01/31/18 09:12 Dose: 81 mg Atorvastatin Calcium (Lipitor) 20 mg PO DIN [facility] Last Admin: 01/31/18 17:20 Dose: 20 mg Ferrous Gluconate (Fergon) 324 mg PO TID [facility] Last Admin: 01/31/18 17:23 Dose: Not Given Furosemide (Lasix) 40 mg PO DAILY [facility] Guaifenesin/Dextromethorphan (Robitussin Dm) 10 ml PO Q4H PRN PRN Reason: Cough Last Admin: 01/31/18 01:08 Dose: 10 ml Levofloxacin/Dextrose (Levaquin 750mg) 750 mg in 150 mls @ 100 mls/hr IVPB DAILY [facility] PRN Reason: Protocol Stop: 02/03/18 23:59 Last Admin: 01/31/18 09:12 Dose: 100 mls/hr Sodium Chloride (Sodium Chloride 0.9%) 1,000 mls @ 100 mls/hr IV .Q10H [facility] Stop: 01/31/18 21:00 Last Admin: 01/31/18 17:22 Dose: 100 mls/hr Insulin Human Regular (Humulin R Med) 0 units SC ACHS [facility] PRN Reason: Protocol Last Admin: 01/31/18 17:21 Dose: Not Given Mupirocin (Bactroban Ointment) 0 gm TOP BID [facility] Last Admin: 01/31/18 17:21 Dose: Not Given Ondansetron HCl (Zofran Inj) 4 mg IVP Q6H PRN PRN Reason: Nausea/Vomiting Pantoprazole Sodium (Protonix Inj) 40 mg IVP DAILY [facility] Last Admin: 01/31/18 09:12 Dose: 40 mg Propranolol HCl (Inderal La) 80 mg PO 2300 [facility] Silver Sulfadiazine (Silvadene 1% 25 Gm) 0 gm TP DAILY [facility] Last Admin: 01/31/18 13:24 Dose: 25 gm Ticagrelor (Brilinta) 90 mg PO BID [facility] Family Hx: none given ROS: cough, SOB, productive cough No abdominal pain, melena, hematuria, hematemesis, hematochezia, depression, anxiety. Past Patient History - Infectious Disease Hx of Infectious Diseases: None - Past Social History Smoking Status: Former Smoker - CARDIAC Hx Cardiac Disorders: Yes Hx Congestive Heart Failure: Yes Hx Hypertension: Yes Hx Pacemaker: Yes - PULMONARY Hx Respiratory Disorders: Yes Hx Asthma: Yes Hx Chronic Obstructive Pulmonary Disease (COPD): Yes - NEUROLOGICAL Hx Neurological Disorder: No - HEENT Hx HEENT Problems: No - RENAL Hx Chronic Kidney Disease: No - ENDOCRINE/METABOLIC Hx Endocrine Disorders: Yes Hx Diabetes Mellitus Type 2: Yes - HEMATOLOGICAL/ONCOLOGICAL Hx Blood Disorders: Yes Hx Cancer: Yes - INTEGUMENTARY Hx Dermatological Problems: Yes Other/Comment: R diabetic foot ulcer - MUSCULOSKELETAL/RHEUMATOLOGICAL Hx Musculoskeletal Disorders: Yes Hx Arthritis: Yes - GASTROINTESTINAL Hx Gastrointestinal Disorders: No - GENITOURINARY/GYNECOLOGICAL Hx Genitourinary Disorders: No - PSYCHIATRIC Hx Psychophysiologic Disorder: No Hx Substance Use: No - SURGICAL HISTORY Hx Amputation: Yes - ANESTHESIA Hx Anesthesia: Yes Hx Anesthesia Reactions: No Hx Malignant Hyperthermia: No Meds Allergies/Adverse Reactions: Allergies Allergy/AdvReac Type Severity Reaction Status Date / Time epinephrine AdvReac DIZZINESS Verified 01/30/18 19:48 - Medications Medications: Current Medications Aspirin (Ecotrin) 81 mg PO DAILY [facility] Last Admin: 01/31/18 09:12 Dose: 81 mg Atorvastatin Calcium (Lipitor) 20 mg PO DIN [facility] Last Admin: 01/31/18 17:20 Dose: 20 mg Ferrous Gluconate (Fergon) 324 mg PO TID [facility] Last Admin: 01/31/18 17:23 Dose: Not Given Furosemide (Lasix) 40 mg PO DAILY [facility] Guaifenesin/Dextromethorphan (Robitussin Dm) 10 ml PO Q4H PRN PRN Reason: Cough Last Admin: 01/31/18 01:08 Dose: 10 ml Levofloxacin/Dextrose (Levaquin 750mg) 750 mg in 150 mls @ 100 mls/hr IVPB DAILY [facility] PRN Reason: Protocol Stop: 02/03/18 23:59 Last Admin: 01/31/18 09:12 Dose: 100 mls/hr Sodium Chloride (Sodium Chloride 0.9%) 1,000 mls @ 100 mls/hr IV .Q10H [facility] Stop: 01/31/18 21:00 Last Admin: 01/31/18 17:22 Dose: 100 mls/hr Insulin Human Regular (Humulin R Med) 0 units SC ACHS [facility] PRN Reason: Protocol Last Admin: 01/31/18 17:21 Dose: Not Given Mupirocin (Bactroban Ointment) 0 gm TOP BID [facility] Last Admin: 01/31/18 17:21 Dose: Not Given Ondansetron HCl (Zofran Inj) 4 mg IVP Q6H PRN PRN Reason: Nausea/Vomiting Pantoprazole Sodium (Protonix Inj) 40 mg IVP DAILY [facility] Last Admin: 01/31/18 09:12 Dose: 40 mg Propranolol HCl (Inderal La) 80 mg PO 2300 [facility] Silver Sulfadiazine (Silvadene 1% 25 Gm) 0 gm TP DAILY [facility] Last Admin: 01/31/18 13:24 Dose: 25 gm Ticagrelor (Brilinta) 90 mg PO BID [facility] Physical Exam - Constitutional Appears: Non-toxic, No Acute Distress, Chronically Ill - Head Exam Head Exam: ATRAUMATIC, NORMOCEPHALIC - Eye Exam Eye Exam: EOMI, PERRL Pupil Exam: NORMAL ACCOMODATION, PERRL - ENT Exam ENT Exam: Mucous Membranes Moist, Normal External Ear Exam, TM's Normal Bilaterally - Neck Exam Neck exam: Positive for: Full Rom, Normal Inspection - Respiratory Exam Respiratory Exam: Clear to Auscultation Bilateral, NORMAL BREATHING PATTERN. absent: Rales, Rhonchi, Wheezes - Cardiovascular Exam Cardiovascular Exam: REGULAR RHYTHM, RRR, +S1. absent: Gallop - GI/Abdominal Exam GI & Abdominal Exam: Normal Bowel Sounds, Soft. absent: Distended, Tenderness - Extremities Exam Extremities exam: Positive for: full ROM Additional comments: large ulcer with black eschar/gangreneous ulcers on the right ankle laterally. - Neurological Exam Neurological exam: Alert, CN II-XII Intact, Oriented x3 - Psychiatric Exam Psychiatric exam: Normal Affect, Normal Mood - Skin Additional comments: As above. Results - Vital Signs Recent Vital Signs: Last Vital Signs Temp 97.3 F L 01/31/18 18:00 Pulse 69 01/31/18 18:45 Resp 18 01/31/18 18:45 BP 114/78 01/31/18 18:45 Pulse Ox 98 01/31/18 06:00 - Labs Result Diagrams: 01/31/18 06:10 01/31/18 06:10 Labs: Laboratory Results - last 24 hr 01/31/18 01/31/18 01/31/18 01:50 01:50 06:10 WBC 11.3 H RBC 4.29 Hgb 9.1 L Hct 30.4 L MCV 70.9 L MCH 21.2 L MCHC 29.9 L RDW 17.7 H Plt Count 385 MPV 8.7 Gran % 70.9 H Lymph % (Auto) 17.7 L Wetzel % (Auto) 5.8 Eos % (Auto) 5.3 H Baso % (Auto) 0.3 Gran # 8.01 H Lymph # (Auto) 2.0 Wetzel # (Auto) 0.7 H Eos # (Auto) 0.6 Baso # (Auto) 0.03 PT INR APTT Sodium Potassium Chloride Carbon Dioxide Anion Gap BUN Creatinine Est GFR ( Amer) Est GFR (Non-Af Amer) POC Glucose (mg/dL) Random Glucose Hemoglobin A1c 7.9 H Calcium Phosphorus Magnesium Iron TIBC % Saturation Ferritin 9.1 Total Bilirubin AST ALT Alkaline Phosphatase Lactate Dehydrogenase 413 Total Creatine Kinase 183 Troponin I 1.10 H* Total Protein Albumin Globulin Albumin/Globulin Ratio Vitamin B12 291 Folate 14.3 Urine Color Urine Appearance Urine pH Ur Specific Palmer Urine Protein Urine Glucose (UA) Urine Ketones Urine Blood Urine Nitrate Urine Bilirubin Urine Urobilinogen Ur Leukocyte Esterase 01/31/18 01/31/18 01/31/18 06:10 06:10 06:10 WBC RBC Hgb Hct MCV MCH MCHC RDW Plt Count MPV Gran % Lymph % (Auto) Wetzel % (Auto) Eos % (Auto) Baso % (Auto) Gran # Lymph # (Auto) Wetzel # (Auto) Eos # (Auto) Baso # (Auto) PT 13.1 H INR 1.14 APTT 93.0 H Sodium 141 Potassium 3.9 Chloride 99 Carbon Dioxide 28 Anion Gap 17 BUN 22 H Creatinine 1.2 Est GFR ( Amer) > 60 Est GFR (Non-Af Amer) 58 POC Glucose (mg/dL) Random Glucose 131 H Hemoglobin A1c Calcium 8.5 Phosphorus 3.7 Magnesium 1.8 Iron 36 L TIBC 419 % Saturation 8 L Ferritin Total Bilirubin 0.4 AST 38 ALT 21 Alkaline Phosphatase 99 Lactate Dehydrogenase Total Creatine Kinase Troponin I Total Protein 7.4 Albumin 4.0 Globulin 3.4 Albumin/Globulin Ratio 1.2 Vitamin B12 Folate Urine Color Urine Appearance Urine pH Ur Specific Palmer Urine Protein Urine Glucose (UA) Urine Ketones Urine Blood Urine Nitrate Urine Bilirubin Urine Urobilinogen Ur Leukocyte Esterase 01/31/18 01/31/18 01/31/18 06:45 07:10 09:50 WBC RBC Hgb Hct MCV MCH MCHC RDW Plt Count MPV Gran % Lymph % (Auto) Wetzel % (Auto) Eos % (Auto) Baso % (Auto) Gran # Lymph # (Auto) Wetzel # (Auto) Eos # (Auto) Baso # (Auto) PT INR APTT Sodium Potassium Chloride Carbon Dioxide Anion Gap BUN Creatinine Est GFR ( Amer) Est GFR (Non-Af Amer) POC Glucose (mg/dL) 125 H Random Glucose Hemoglobin A1c Calcium Phosphorus Magnesium Iron TIBC % Saturation Ferritin Total Bilirubin AST ALT Alkaline Phosphatase Lactate Dehydrogenase 432 Total Creatine Kinase 140 Troponin I 0.92 H* Total Protein Albumin Globulin Albumin/Globulin Ratio Vitamin B12 Folate Urine Color Yellow Urine Appearance Clear Urine pH 5.5 Ur Specific Palmer 1.010 Urine Protein Negative Urine Glucose (UA) Negative Urine Ketones Negative Urine Blood Negative Urine Nitrate Negative Urine Bilirubin Negative Urine Urobilinogen 0.2 Ur Leukocyte Esterase Negative 01/31/18 01/31/18 11:02 12:40 WBC RBC Hgb Hct MCV MCH MCHC RDW Plt Count MPV Gran % Lymph % (Auto) Wetzel % (Auto) Eos % (Auto) Baso % (Auto) Gran # Lymph # (Auto) Wetzel # (Auto) Eos # (Auto) Baso # (Auto) PT INR APTT 36.2 Sodium Potassium Chloride Carbon Dioxide Anion Gap BUN Creatinine Est GFR ( Amer) Est GFR (Non-Af Amer) POC Glucose (mg/dL) 167 H Random Glucose Hemoglobin A1c Calcium Phosphorus Magnesium Iron TIBC % Saturation Ferritin Total Bilirubin AST ALT Alkaline Phosphatase Lactate Dehydrogenase Total Creatine Kinase Troponin I Total Protein Albumin Globulin Albumin/Globulin Ratio Vitamin B12 Folate Urine Color Urine Appearance Urine pH Ur Specific Palmer Urine Protein Urine Glucose (UA) Urine Ketones Urine Blood Urine Nitrate Urine Bilirubin Urine Urobilinogen Ur Leukocyte Esterase Assessment & Plan - Assessment and Plan (Free Text) Assessment: 77 yo male well known to me for the last few years. On Augmentin normally for prophylatic therapy for the exposed pacemaker wires and the large gangrenous ulcers of the right lateral ankle. He has been on this regimen for over 2 years now and follows regularly in my office during this time. The patient was taken to cardiac cath and required stenting of 3 vessels today. Agree with repeat Chest X-ray as the patient more likely had CHF exacerabation rather than pneumonia. Since cath, the patient no longer has cough or SOB. Can resume Augmentin for the antibiotic prophylaxis therapy. Supportive care. Thank you for allowing me to participate in the care of the patient, we will follow with you.
[2018-01-31] MEDS: Propranolol 80 mg ER Cap PO SCH (22:00)
--- NOTE | 2018-01-31 22:29 | CARD ---
APPROVED REPORT Date of service: 01/31/2018 EKG Measurement Heart [id number] <Conclusion> Sinus rhythm with 1st degree AV block Nonspecific ST abnormality Abnormal ECG
[2018-01-31 23:42] LABS: MCH 21.7 pg (27.0-33.0); MCV 70.9 fL (80.0-100.0)
--- NOTE | 2018-02-01 01:45 | CON ---
Copied To: Moe House MD Attending MD: Moe House MD DATE: 01/31/2018 REASON FOR THE CONSULTATION AND FOLLOWUP: Positive troponin, non-ST segment myocardial infarction, acute coronary syndrome, admitted with productive cough for one week. BRIEF CLINICAL HISTORY: This is a 77-year-old male with past medical history significant for diabetes, hypertension, hyperlipidemia, chronic nonhealing foot ulcers, history of AICD, COPD, severe PVD, admitted with a one-week history of nonproductive cough, but troponin was found to be positive. The patient denies any chest pain, shortness of breath or any palpitation. Past history significant for coronary artery disease status post stent in the left main, history of nonhealing ulcers and history of infected AICD status post new AICD placed in the abdomen who denies any chest pain, shortness of breath, came in yesterday with history of nonproductive cough and troponin was found to be positive. The patient was admitted here with acute coronary syndrome. PAST MEDICAL HISTORY: Significant for hypertension, hyperlipidemia, coronary artery disease status post cardiac catheterization on October shows nonobstructive coronary artery disease. Recently cardiac catheterization done found to be left main disease. The patient has a stent in the left main in 12/2014, after the patient had Vfib arrest, when attempted to remove the pacemaker. History of PAD, history of PTCA. SOCIAL HISTORY: Denies any smoking. Denies any history of alcohol abuse. CURRENT MEDICATIONS: The patient is on glyburide 5 mg daily, Brilinta 90 mg daily, Zocor 40 mg daily, Inderal 80 mg daily, Nexium, aspirin, Augmentin. ALLERGIES: EPINEPHRINE. RECENT CARDIAC WORKUP: As follows; the patient had echocardiography last year in [facility] on 08/09/2014 that showed ejection fraction 55%, trace to mild tricuspid regurgitation. REVIEW OF SYSTEMS: As per HPI. PHYSICAL EXAMINATION: VITAL SIGNS: Temperature afebrile, heart rate , blood pressure 120/73. HEENT: PERRLA. Extraocular muscles intact. NECK: Supple. No carotid bruits or thyromegaly. CHEST: Clear to auscultation. HEART: S1 and S2 regular. ABDOMEN: Soft. EXTREMITIES: Clubbing and cyanosis negative. LABORATORY DATA: Blood workup as follows; WBC 11.3, hemoglobin 9.2, hematocrit 30.4, platelet count 385. Chemistry shows sodium 140, potassium 3.9, chloride 90, carbon dioxide 28, anion gap of 17, BUN 20, creatinine 1.9. Troponin 1.1 and 0.92. IMPRESSION: Acute coronary syndrome, unstable angina, history of coronary artery disease, history of stent in the left main in 12/2014, diabetes, hypertension, hyperlipidemia. EKG shows normal sinus rhythm with acute ST-T changes. RECOMMENDATIONS: Cardiac catheterization. We will hold heparin. Risks, benefits, and alternatives were explained to the patient. The patient will proceed with cardiac catheterization. Further recommendations after cardiac catheterization. We will follow with you. Thank you, , for providing us the opportunity in taking care of the patient, Favian Webster. Moe House MD
[2018-02-01 07:24] LABS: BASO # 0.01 K/mm3 (0.0-2.0); BASO % 0.1 % (0.0-3.0); EOS # 0.4 (0.0-0.7); EOS % 4.5 % (1.5-5.0); GRAN # 6.86 (1.4-6.5); LYMPH # 1.3 (1.2-3.4); LYMPH % 13.8 % (22.0-35.0); MEAN CELL VOLUME 70.9 fl (80.0-105.0); MEAN CORPUSCULAR HGB CONC 29.6 g/dl (31.0-37.0); MEAN PLATELET VOLUME 8.6 fl (7.0-11.0); MONO # 0.7 (0.1-0.6); MONO % 7.6 % (1.0-6.0); RBC 3.81 10^6/uL (3.5-6.1); WHITE BLOOD COUNT 9.3 10^3/ul (4.5-11.0)
[2018-02-01 08:06] LABS: ALB/GLOB RATIO 1.1 (1.1-1.8); ALBUMIN 3.5 g/dL (3.0-4.8); ALT/SGPT 24 U/L (7-56); AST/SGOT 40 U/L (17-59); BLOOD UREA NITROGEN 20 mg/dL (7-21); CALCIUM 8.1 mg/dL (8.4-10.5); GFR AFRICAN-AMERICAN > 60; GFR NON-AFRICAN AMERICAN 53; HDL CHOLESTEROL 21 mg/dL (29-60)
[2018-02-01 08:17] LABS: LDL CHOLESTEROL 69 mg/dL (0-129)
[2018-02-01] MEDS: Insulin Reg-MEDIUM-Coverage SC SCH ×4 (08:32→23:11)
--- NOTE | 2018-02-01 10:05 | RAD ---
Date of service: 02/01/2018 HISTORY: F/U pneumonia and compare COMPARISON: 01/30/2018 TECHNIQUE: Chest PA and lateral FINDINGS: LUNGS: No active pulmonary disease. PLEURA: No significant pleural effusion identified. No pneumothorax apparent. CARDIOVASCULAR: Normal. OSSEOUS STRUCTURES: No significant abnormalities. VISUALIZED UPPER ABDOMEN: Normal. OTHER FINDINGS: Pacemaker IMPRESSION: No active disease.
[2018-02-01] MEDS: Mupirocin 2% Ointment 15 GM TUBE TOP SCH ×2 (10:52→17:48)
[2018-02-01] MEDS: levoFLOXacin 750 mg in D5W 750 MG/150 ML BAG IVPB SCH (10:56)
[2018-02-01] MEDS: Silver Sulfadiazine 1% Cream (25 gm) TP SCH (10:58)
[2018-02-01] MEDS ORDERED: Potassium Chloride 20 mEq ER Tab PO ONE (11:30)
[2018-02-01 12:21] LABS: IRON 26 ug/dL (45-180)
[2018-02-01 12:30] LABS: % IRON SATURATION 7 % (20-55); TOTAL IRON BINDING CAPACITY 376 ug/dL (261-462)
[2018-02-01 12:34] LABS: HEMOGLOBIN A 97.4 Percent (>96.0); HEMOGLOBIN A2 1.6 Percent (1.8-3.5)
--- NOTE | 2018-02-01 13:33 | CP.PCM.PN ---
<Jerry Brown - Last Filed: 02/01/18 13:29> Subjective - Date & Time of Evaluation Date of Evaluation: 02/01/18 Time of Evaluation: 13:30 - Subjective Subjective: Podiatry Progress Note for Dr. Khan 77M seen for chronic right heel ulceration. Patient is AAO x 3 and NAD, resting comfortably in bed at time of visit. Denies any pain to the area. Denies any new pedal complaints at this time or any acute overnight events. States that his cardiac catheterization went well yesterday. Denies any recent N/V/F/C/CP/ SOB/D/posterior calf pain when squeezed. Objective - Vital Signs/Intake and Output Vital Signs (last 24 hours): Temp Pulse Resp BP Pulse Ox 98.4 F 70 16 120/51 L 97 02/01/18 12:00 02/01/18 12:00 02/01/18 12:00 02/01/18 12:00 02/01/18 06:00 Intake and Output: 02/01/18 02/01/18 06:59 18:59 Intake Total 480 Balance 480 - Medications Medications: Current Medications Aspirin (Ecotrin) 81 mg PO DAILY [facility] Last Admin: 02/01/18 10:57 Dose: 81 mg Atorvastatin Calcium (Lipitor) 20 mg PO DIN [facility] Last Admin: 01/31/18 17:20 Dose: 20 mg Ferrous Sulfate (Feosol) 324 mg PO TID [facility] Furosemide (Lasix) 40 mg PO DAILY [facility] Last Admin: 02/01/18 10:58 Dose: 40 mg Guaifenesin/Dextromethorphan (Robitussin Dm) 10 ml PO Q4H PRN PRN Reason: Cough Last Admin: 01/31/18 01:08 Dose: 10 ml Levofloxacin/Dextrose (Levaquin 750mg) 750 mg in 150 mls @ 100 mls/hr IVPB DAILY [facility] PRN Reason: Protocol Stop: 02/03/18 23:59 Last Admin: 02/01/18 10:56 Dose: 100 mls/hr Insulin Human Regular (Humulin R Med) 0 units SC ACHS [facility] PRN Reason: Protocol Last Admin: 02/01/18 11:50 Dose: 3 units Multivitamins (Thera Tab) 1 tab PO 0800 [facility] Mupirocin (Bactroban Ointment) 0 gm TOP BID [facility] Last Admin: 02/01/18 10:52 Dose: Not Given Ondansetron HCl (Zofran Inj) 4 mg IVP Q6H PRN PRN Reason: Nausea/Vomiting Pantoprazole Sodium (Protonix Ec Tab) 40 mg PO ACB [facility] Propranolol HCl (Inderal La) 80 mg PO 2300 [facility] Last Admin: 01/31/18 22:00 Dose: 80 mg Silver Sulfadiazine (Silvadene 1% 25 Gm) 0 gm TP DAILY [facility] Last Admin: 02/01/18 10:58 Dose: Not Given Ticagrelor (Brilinta) 90 mg PO BID [facility] Last Admin: 02/01/18 10:52 Dose: Not Given - Labs Labs: 02/01/18 06:30 02/01/18 06:30 PT 13.1 SECONDS (9.4-12.5) H 01/31/18 06:10 INR 1.14 01/31/18 06:10 APTT 36.2 Seconds (25.1-36.5) 01/31/18 12:40 - Constitutional Appears: Well, Non-toxic, No Acute Distress - Extremities Exam Additional comments: RLE focused exam: Vasc: DP/PT pulses faintly palpable 1/4 b/l. Skin temperature warm to warm from proximal to distal. CFT < 3 seconds to all digits b/l. No edema noted b/l Neuro: Epicritic and protective sensation grossly absent b/l Derm: Approximately 13 cm x 5 cm x 0.5 cm ulceration noted to medial heel of right foot. Dry stable eschar noted at wound base. No drainage, no malodor, no erythema, no purulence, no fluctuance, no tracking/tunneling/undermining, no probe to bone. No other clinical signs of infection. No other dermatological abnormalities noted at this time MSK: No tenderness on palpation to wound site. ROM WNL to all major joints. Muscle strength 5/5 in all major muscle groups. No other gross deformities noted - Neurological Exam Neurological Exam: Alert, Awake, Oriented x3 - Psychiatric Exam Psychiatric exam: Normal Affect, Normal Mood Assessment and Plan - Assessment and Plan (Free Text) Assessment: 77M well known to our service seen at bedside for chronic right foot heel ulceration Plan: Patient seen and evaluated Plan discussed with Dr. Arloro Afebrile, absent leukocytosis Continue IV abx per ID Wound cleansed with saline Wound dressed with silvadene, bactroban, gauze, ABD pads, gaye No plan for surgical intervention at this time Patient stable from podiatric standpoint Podiatry will continue to follow while patient in house <Dmitry Khan - Last Filed: 02/01/18 16:45> Objective - Vital Signs/Intake and Output Vital Signs (last 24 hours): Temp Pulse Resp BP Pulse Ox 98.4 F 73 16 120/51 L 97 02/01/18 12:00 02/01/18 14:00 02/01/18 12:00 02/01/18 12:00 02/01/18 06:00 Intake and Output: 02/01/18 02/01/18 06:59 18:59 Intake Total 480 Balance 480 - Medications Medications: Current Medications Aspirin (Ecotrin) 81 mg PO DAILY [facility] Last Admin: 02/01/18 10:57 Dose: 81 mg Atorvastatin Calcium (Lipitor) 20 mg PO DIN [facility] Last Admin: 01/31/18 17:20 Dose: 20 mg Ferrous Sulfate (Feosol) 324 mg PO TID [facility] Furosemide (Lasix) 40 mg PO DAILY [facility] Last Admin: 02/01/18 10:58 Dose: 40 mg Glyburide (Micronase) 5 mg PO 0800,1700 [facility] Guaifenesin/Dextromethorphan (Robitussin Dm) 10 ml PO Q4H PRN PRN Reason: Cough Last Admin: 01/31/18 01:08 Dose: 10 ml Insulin Human Regular (Humulin R Med) 0 units SC ACHS [facility] PRN Reason: Protocol Last Admin: 02/01/18 11:50 Dose: 3 units Levofloxacin (Levaquin) 500 mg PO DAILY [facility] PRN Reason: Protocol Multivitamins (Thera Tab) 1 tab PO 0800 [facility] Mupirocin (Bactroban Ointment) 0 gm TOP BID [facility] Last Admin: 02/01/18 10:52 Dose: Not Given Ondansetron HCl (Zofran Inj) 4 mg IVP Q6H PRN PRN Reason: Nausea/Vomiting Pantoprazole Sodium (Protonix Ec Tab) 40 mg PO ACB [facility] Propranolol HCl (Inderal La) 80 mg PO 2300 [facility] Last Admin: 01/31/18 22:00 Dose: 80 mg Silver Sulfadiazine (Silvadene 1% 25 Gm) 0 gm TP DAILY [facility] Last Admin: 02/01/18 10:58 Dose: Not Given Ticagrelor (Brilinta) 90 mg PO BID [facility] Last Admin: 02/01/18 10:52 Dose: Not Given - Labs Labs: 02/01/18 06:30 02/01/18 06:30 PT 13.1 SECONDS (9.4-12.5) H 01/31/18 06:10 INR 1.14 01/31/18 06:10 APTT 36.2 Seconds (25.1-36.5) 01/31/18 12:40 Attending/Attestation - Attestation I have personally seen and examined this patient.: Yes I have fully participated in the care of the patient.: Yes I have reviewed all pertinent clinical information, including history, physical exam and plan: Yes
--- NOTE | 2018-02-01 13:57 | CP.PCM.PN ---
<Brandon Elliott - Last Filed: 02/01/18 15:38> Subjective - Date & Time of Evaluation Date of Evaluation: 02/01/18 Time of Evaluation: 13:54 - Subjective Subjective: Brandon Elliott, PGY-1, Internal Medicine note for Dr. Castrejon Patient seen and examined this morning. Last night, patient had one episode of dysuria and hematuria but has not complained of these symptoms since. In addition, patient complains of redness, discharge and malodor of right foot wound. Patient also complains of chronic shortness of breath though he is on 2L of oxygen. Patient denies chest pain, heart palpitations, dizziness, headache, wheezing, nausea, vomiting, constipation, and diarrhea. Objective - Vital Signs/Intake and Output Vital Signs (last 24 hours): Temp Pulse Resp BP Pulse Ox 98.4 F 70 16 120/51 L 97 02/01/18 12:00 02/01/18 12:00 02/01/18 12:00 02/01/18 12:00 02/01/18 06:00 Intake and Output: 02/01/18 02/01/18 06:59 18:59 Intake Total 480 Balance 480 - Medications Medications: Current Medications Aspirin (Ecotrin) 81 mg PO DAILY [facility] Last Admin: 02/01/18 10:57 Dose: 81 mg Atorvastatin Calcium (Lipitor) 20 mg PO DIN [facility] Last Admin: 01/31/18 17:20 Dose: 20 mg Ferrous Sulfate (Feosol) 324 mg PO TID [facility] Furosemide (Lasix) 40 mg PO DAILY [facility] Last Admin: 02/01/18 10:58 Dose: 40 mg Guaifenesin/Dextromethorphan (Robitussin Dm) 10 ml PO Q4H PRN PRN Reason: Cough Last Admin: 01/31/18 01:08 Dose: 10 ml Levofloxacin/Dextrose (Levaquin 750mg) 750 mg in 150 mls @ 100 mls/hr IVPB DAILY [facility] PRN Reason: Protocol Stop: 02/03/18 23:59 Last Admin: 02/01/18 10:56 Dose: 100 mls/hr Insulin Human Regular (Humulin R Med) 0 units SC ACHS [facility] PRN Reason: Protocol Last Admin: 02/01/18 11:50 Dose: 3 units Multivitamins (Thera Tab) 1 tab PO 0800 [facility] Mupirocin (Bactroban Ointment) 0 gm TOP BID [facility] Last Admin: 02/01/18 10:52 Dose: Not Given Ondansetron HCl (Zofran Inj) 4 mg IVP Q6H PRN PRN Reason: Nausea/Vomiting Pantoprazole Sodium (Protonix Ec Tab) 40 mg PO ACB [facility] Propranolol HCl (Inderal La) 80 mg PO 2300 [facility] Last Admin: 01/31/18 22:00 Dose: 80 mg Silver Sulfadiazine (Silvadene 1% 25 Gm) 0 gm TP DAILY [facility] Last Admin: 02/01/18 10:58 Dose: Not Given Ticagrelor (Brilinta) 90 mg PO BID [facility] Last Admin: 02/01/18 10:52 Dose: Not Given - Labs Labs: 02/01/18 06:30 02/01/18 06:30 PT 13.1 SECONDS (9.4-12.5) H 01/31/18 06:10 INR 1.14 01/31/18 06:10 APTT 36.2 Seconds (25.1-36.5) 01/31/18 12:40 - Constitutional Appears: Well, Non-toxic - Head Exam Head Exam: ATRAUMATIC, NORMOCEPHALIC - Eye Exam Eye Exam: EOMI, Normal appearance - Respiratory Exam Respiratory Exam: Clear to Ausculation Bilateral, NORMAL BREATHING PATTERN - Cardiovascular Exam Cardiovascular Exam: REGULAR RHYTHM, RRR - GI/Abdominal Exam GI & Abdominal Exam: Soft, Normal Bowel Sounds - Extremities Exam Extremities Exam: Full ROM Additional comments: Patient has chronic right foot wound covered with bandages today. - Neurological Exam Neurological Exam: Alert, Awake, CN II-XII Intact, Oriented x3 Neuro motor strength exam: Left Upper Extremity: 5, Right Upper Extremity: 5, Left Lower Extremity: 5, Right Lower Extremity: 5 - Psychiatric Exam Psychiatric exam: Normal Affect, Normal Mood - Skin Skin Exam: Dry, Intact, Normal Color Assessment and Plan - Assessment and Plan (Free Text) Assessment: 77 year old male with past medical history of hypertension, hyperlipidemia, diabetes, chronic right foot ulcer, BPH, CHF, ICD placement, COPD, and severe PVD presented with productive cough with green sputum one week ago. Plan: NSTEMI -S/p ICD placement -Troponin values (01/30-8/6): 0.92, 1.10, and 0.97 -EKG on 01/31 shows sinus rhythm with 1st degree AV block with heart rate of 80 bpm. -Catherization took place at 2 pm 01/31. Catherization shows circ 99% stenosis, distal RCA 90% stenosis, and mid RCA 80% stenosis. 3 VALERIY placed in distal RCA, mid RCA, and mid circumflex artery. -ASA 325 given once last night, now on ASA 81 -Plavix 75 mg -Lipitor 20 mg -Propanolol 80 mg -Cardiology, Dr. House, consulted. -Prophylactic augmentin for ICD restarted by Dr. Sheridan. -Echocardiogram results pending. Chronic right foot heel ulceration -Podiatry, Dr. Tolbert, dressed wound with silvadene, mupirocin, gauze, ABD, and kirlix. -Per podiatry, no plan for surgical intervention. -Podiatry will continue to follow while patient in house. Leukocytosis 2/2 to stress vs. pneumonia-resolved -WBC: 9.3 from 11.7 likely due to stress. Leukocytosis resolved -Chest X ray 01/30: shows no infiltrate as read by radiologist -Chest X ray 02/01: shows no active pulmonary disease -Levaquin 750 mg day 2 of 7. Levaquin was switched to PO from IV. Microcytic Anemia -Hemoglobin: 8.0 from 8.8. Baseline from previous visits is 9-10. -MCV: 70.9 from 70.5 -Ferritin: 9.1 -Iron: 26 (low) -TIBC: 376 -% saturation: 7 (low) -Hemoglobin A2: 1.6 (low) -Vitamin B12: 291 -Folate: 14.3 -Patient has suspected iron deficiency anemia but cannot rule out alpha thalassemia. -Patient is on ferrous gluconate 324 mg PO TID. Elevated Glucose 2/2 to hx of diabetes -Glucose: 205 -Continue patient on lispro insulin sliding scale. -Home dose glyburide 5 mg BID restarted. Hypocalemia -Calcium: 8.1 from 8.3 -Continue to monitor. Hyperlipidemia -Triglycerides: 187 -Cholesterol: 128 -LDL: 69 -HDL: 21 -Continue Lipitor 20 mg. <Rama Castrejon - Last Filed: 02/01/18 16:13> Objective - Vital Signs/Intake and Output Vital Signs (last 24 hours): Temp Pulse Resp BP Pulse Ox 98.4 F 73 16 120/51 L 97 02/01/18 12:00 02/01/18 14:00 02/01/18 12:00 02/01/18 12:00 02/01/18 06:00 Intake and Output: 02/01/18 02/01/18 06:59 18:59 Intake Total 480 Balance 480 - Medications Medications: Current Medications Aspirin (Ecotrin) 81 mg PO DAILY [facility] Last Admin: 02/01/18 10:57 Dose: 81 mg Atorvastatin Calcium (Lipitor) 20 mg PO DIN [facility] Last Admin: 01/31/18 17:20 Dose: 20 mg Ferrous Sulfate (Feosol) 324 mg PO TID [facility] Furosemide (Lasix) 40 mg PO DAILY [facility] Last Admin: 02/01/18 10:58 Dose: 40 mg Glyburide (Micronase) 5 mg PO 0800,1700 [facility] Guaifenesin/Dextromethorphan (Robitussin Dm) 10 ml PO Q4H PRN PRN Reason: Cough Last Admin: 01/31/18 01:08 Dose: 10 ml Insulin Human Regular (Humulin R Med) 0 units SC ACHS [facility] PRN Reason: Protocol Last Admin: 02/01/18 11:50 Dose: 3 units Levofloxacin (Levaquin) 500 mg PO DAILY [facility] PRN Reason: Protocol Multivitamins (Thera Tab) 1 tab PO 0800 [facility] Mupirocin (Bactroban Ointment) 0 gm TOP BID [facility] Last Admin: 02/01/18 10:52 Dose: Not Given Ondansetron HCl (Zofran Inj) 4 mg IVP Q6H PRN PRN Reason: Nausea/Vomiting Pantoprazole Sodium (Protonix Ec Tab) 40 mg PO ACB [facility] Propranolol HCl (Inderal La) 80 mg PO 2300 [facility] Last Admin: 01/31/18 22:00 Dose: 80 mg Silver Sulfadiazine (Silvadene 1% 25 Gm) 0 gm TP DAILY [facility] Last Admin: 02/01/18 10:58 Dose: Not Given Ticagrelor (Brilinta) 90 mg PO BID [facility] Last Admin: 02/01/18 10:52 Dose: Not Given - Labs Labs: 02/01/18 06:30 02/01/18 06:30 PT 13.1 SECONDS (9.4-12.5) H 01/31/18 06:10 INR 1.14 01/31/18 06:10 APTT 36.2 Seconds (25.1-36.5) 01/31/18 12:40 Attending/Attestation - Attestation I have personally seen and examined this patient.: Yes I have fully participated in the care of the patient.: Yes I have reviewed all pertinent clinical information, including history, physical exam and plan: Yes Notes (Text): 02/01/18 16:08 Attending note; Patient seen and examined with resident. Patient is a 77 year old male with past medical history of hypertension, hyperlipidemia, diabetes, chronic right foot ulcer, BPH, CHF, ICD placement, COPD, and severe PVD presented with productive cough with green sputum. Status post cardiac cath and 3 drug-eluting stent placement. Continue aspirin, brillanta, propanalol, lasix and lipitor. Chest x-ray showed no acute infiltrate. on levofloxacin for bronchitis. Patient has chronically exposed AICD wire on the left chest. No discharge noted. Patient has chronic right foot ulcer. Dressing done by podiatry. Anemia; chronic. Denies any complaints. No active bleeding. Iron deficiency anemia; patient refused blood transfusion and IV iron. Continue by mouth iron. Chronic peripheral vascular disease and foot ulcer. Continue local care by podiatry. Patient is afebrile and nontoxic. Diabetes; continue Micronase. Upon discharge the patient will follow-up with PMD Dr. Bowling.
--- NOTE | 2018-02-01 15:08 | PN ---
Copied To: Moe House MD Attending MD: Moe House MD DATE: 02/01/2018 REASON FOR THE CONSULTATION: Followup acute coronary syndrome, unstable angina, coronary artery disease, status post multivessel PTCA. SUBJECTIVE: The patient denies any chest pain, shortness of breath, any palpitation. Complained of cough, which bring some phlegm, significantly improved from before, on way to chest x-ray. OBJECTIVE: GENERAL: Not in any apparent distress, lying flat on the bed, on way for chest x-ray. VITAL SIGNS: Temperature afebrile, heart rate 69, blood pressure 105/68. HEENT: PERRLA. Extraocular muscles intact. NECK: Supple. No carotid bruits or thyromegaly. CHEST: Clear to auscultation. HEART: S1 and S2 regular. ABDOMEN: Soft. EXTREMITIES: Clubbing and cyanosis negative. LABORATORY DATA: Blood workup as follows; WBC 9.2, hemoglobin 8, hematocrit 27, platelet count 343. Sodium 141, potassium 3.7, chloride 102, carbon dioxide 29, anion gap of 14, BUN 20, creatinine is 1.3. Total cholesterol 128, LDL 69, HDL 21, triglyceride 187, TSH 2.5. EKG shows normal sinus rhythm. No acute ST-T changes noted. IMPRESSION: Acute coronary syndrome, unstable angina, history of coronary artery disease, history of stent in left main, history of percutaneous transluminal coronary angioplasty with stent of left anterior descending. Yesterday, the patient underwent cardiac catheterization and multivessel angioplasty including circumflex mid percutaneous transluminal coronary angioplasty, mid right coronary artery and distal right coronary artery. History of pacemaker, history of infected pacemaker, history of wireless pacemaker placed, history of peripheral arterial disease. RECOMMENDATIONS: We will send for chest x-ray PA and lateral to rule out any early pneumonia or bronchitis. We will repeat echo to assess LV function. Continue Dr. Sheridan's followup, anemia workup. Continue Brilinta. The patient was on Brilinta before, so Brilinta resumed back 90 b.i.d. Though, yesterday started Plavix, since the patient was on Brilinta, we will resume back Brilinta. Continue propranolol. Continue gentle Lasix. Continue antibiotic. We will follow discharge planning. We will do the anemia workup. We will also supplement iron and multivitamin. We will follow with you. Thank you, Dr. Castrejon, for providing us the opportunity in taking care of the patient, Favian Webster. Moe House MD cc: Rama Castrejon MD
[2018-02-01 16:34] LABS: FERRITIN 13.6 ng/mL
--- NOTE | 2018-02-01 17:58 | CARD ---
APPROVED REPORT Date of service: 02/01/2018 EKG Measurement Heart [id number] <Conclusion> Sinus rhythm with 1st degree AV block Nonspecific ST abnormality Abnormal ECG
--- NOTE | 2018-02-01 19:07 | CP.PCM.PN ---
Subjective - Date & Time of Evaluation Date of Evaluation: 02/01/18 Time of Evaluation: 17:15 - Subjective Subjective: Infectious Disease Follow Up: February 01, 2018 77 y/o male with PMH of HTN, HLD, DM2, chronic right foot ulcer, CHF, ICD, COPD , severe PVD. presents to ED with productive cough with yellow/clear sputum that started one week ago with URI syptoms. Patient came to ED at that time, discharged with cough drops which did not help at all and it was getting worse and decided to come today to ED. Cough is associated with SOB that lasts 2-3 seconds with exertion. Patient denied associated symptoms of chest pain, hemoptysis, fever, chills, wheezing, palpitations, dizziness. He sleeps on 3 pillows for years, activity level is limited to climbing one flight of steps at home few times a day and dinning out sometimes. 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 His last echo was done 4 month ago, records unavailable, but [place] [facility] [place] EF 55%, LVH. Patient had severe PVD for which he went peripheral cath with Dr Crane [place] [facility] [place] that shows severe right ant/post tibial stenosis for which bypass surgery was recommended if the right foot ulcer does not heal, left renal artery stent was placed 2/2 severe stenosis. Patient also had ICD placed and is currently taking ASA and Brilenta. Taken for cardiac cath today and had placement of 3 stents. Reason for Augmentin daily dosage was as prophylaxis to infection of the exposed pacemaker wires in the left upper chest (primary) and the large necrotic ulcer in the right lateral ankle (secondary). Noted that the patient was in the ER a week ago and discharged with diagnosis of a pneumonia. His Augmentin was increased to BID at this time by the ER. Repeat Chest X-ray showing no active disease. Objective - Vital Signs/Intake and Output Vital Signs (last 24 hours): Temp Pulse Resp BP Pulse Ox 98.1 F 77 17 123/59 L 97 02/01/18 17:54 02/01/18 18:00 02/01/18 17:54 08/07/18 17:54 02/01/18 17:54 Intake and Output: 02/01/18 02/01/18 06:59 18:59 Intake Total 480 1210 Balance 480 1210 - Medications Medications: Current Medications Aspirin (Ecotrin) 81 mg PO DAILY [facility] Last Admin: 02/01/18 10:57 Dose: 81 mg Atorvastatin Calcium (Lipitor) 20 mg PO DIN [facility] Last Admin: 02/01/18 17:50 Dose: 20 mg Ferrous Sulfate (Feosol) 324 mg PO TID [facility] Last Admin: 02/01/18 17:50 Dose: 324 mg Furosemide (Lasix) 40 mg PO DAILY [facility] Last Admin: 02/01/18 10:58 Dose: 40 mg Glyburide (Micronase) 5 mg PO 0800,1700 [facility] Last Admin: 02/01/18 17:52 Dose: 5 mg Guaifenesin/Dextromethorphan (Robitussin Dm) 10 ml PO Q4H PRN PRN Reason: Cough Last Admin: 01/31/18 01:08 Dose: 10 ml Insulin Human Regular (Humulin R Med) 0 units SC ACHS [facility] PRN Reason: Protocol Last Admin: 02/01/18 17:49 Dose: Not Given Levofloxacin (Levaquin) 500 mg PO DAILY [facility] PRN Reason: Protocol Multivitamins (Thera Tab) 1 tab PO 0800 [facility] Mupirocin (Bactroban Ointment) 0 gm TOP BID [facility] Last Admin: 02/01/18 17:48 Dose: Not Given Ondansetron HCl (Zofran Inj) 4 mg IVP Q6H PRN PRN Reason: Nausea/Vomiting Pantoprazole Sodium (Protonix Ec Tab) 40 mg PO ACB [facility] Propranolol HCl (Inderal La) 80 mg PO 2300 [facility] Last Admin: 01/31/18 22:00 Dose: 80 mg Silver Sulfadiazine (Silvadene 1% 25 Gm) 0 gm TP DAILY [facility] Last Admin: 02/01/18 10:58 Dose: Not Given Ticagrelor (Brilinta) 90 mg PO BID [facility] Last Admin: 02/01/18 17:51 Dose: 90 mg - Labs Labs: 02/01/18 06:30 02/01/18 06:30 PT 13.1 SECONDS (9.4-12.5) H 01/31/18 06:10 INR 1.14 01/31/18 06:10 APTT 36.2 Seconds (25.1-36.5) 01/31/18 12:40 - Constitutional Appears: Non-toxic, No Acute Distress, Chronically Ill - Head Exam Head Exam: ATRAUMATIC, NORMOCEPHALIC - Eye Exam Eye Exam: EOMI, PERRL Pupil Exam: NORMAL ACCOMODATION, PERRL - ENT Exam ENT Exam: Mucous Membranes Moist, Normal External Ear Exam, TM's Normal Bilaterally - Neck Exam Neck Exam: Full ROM, Normal Inspection - Respiratory Exam Respiratory Exam: Clear to Ausculation Bilateral, NORMAL BREATHING PATTERN. absent: Rales, Rhonchi, Wheezes - Cardiovascular Exam Cardiovascular Exam: REGULAR RHYTHM, RRR, +S1, +S2 - GI/Abdominal Exam GI & Abdominal Exam: Soft, Normal Bowel Sounds. absent: Distended, Tenderness - Extremities Exam Extremities Exam: Full ROM Additional comments: large ulcer with black eschar/gangreneous ulcers on the right ankle laterally. - Neurological Exam Neurological Exam: Alert, Awake, CN II-XII Intact, Oriented x3 - Psychiatric Exam Psychiatric exam: Normal Affect, Normal Mood - Skin Additional comments: As above. Assessment and Plan - Assessment and Plan (Free Text) Assessment: 77 yo male well known to me for the last few years. On Augmentin normally for prophylatic therapy for the exposed pacemaker wires and the large gangrenous ulcers of the right lateral ankle. He has been on this regimen for over 2 years now and follows regularly in my office during this time. The patient was taken to cardiac cath and required stenting of 3 vessels today. Agree with repeat Chest X-ray as the patient more likely had CHF exacerabation rather than pneumonia. Since cath, the patient no longer has cough or SOB. Can resume Augmentin for the antibiotic prophylaxis therapy. Supportive care. Stop Levaquin. Thank you for allowing me to participate in the care of the patient, we will follow with you.
[2018-02-01] MEDS ORDERED: POLYETHYLENE GLYCOL 3350 17 GM/Dose PACKET PO STA (21:25)
[2018-02-01] MEDS: Propranolol 80 mg ER Cap PO SCH (22:12)
[2018-02-01] MEDS: Amoxicillin-Clav 875-125 mg Tab PO SCH (22:32)
[2018-02-02 05:55] VITALS: PULSE 69; O2SAT 97
[2018-02-02] MEDS ORDERED: Pantoprazole 40 mg EC Tab PO SCH (07:30)
[2018-02-02] MEDS ORDERED: Multivitamin Therapeutic Tab PO SCH (08:00)
[2018-02-02] MEDS: Insulin Reg-MEDIUM-Coverage SC SCH ×2 (08:30→12:18)
[2018-02-02 09:04] LABS: BASO # 0.01 K/mm3 (0.0-2.0); BASO % 0.1 % (0.0-3.0); EOS # 0.3 (0.0-0.7); EOS % 3.8 % (1.5-5.0); GRAN # 5.95 (1.4-6.5); GRAN % 71.4 % (50.0-68.0); HEMOGLOBIN 8.2 g/dL (14.0-18.0); LYMPH # 1.5 (1.2-3.4); LYMPH % 17.6 % (22.0-35.0); MEAN CELL VOLUME 70.9 fl (80.0-105.0); MEAN CORPUSCULAR HEMOGLOBIN 21.1 pg (25.0-35.0); MEAN CORPUSCULAR HGB CONC 29.8 g/dl (31.0-37.0); MEAN PLATELET VOLUME 8.4 fl (7.0-11.0); MONO # 0.6 (0.1-0.6); MONO % 7.1 % (1.0-6.0); RBC 3.88 10^6/uL (3.5-6.1); WHITE BLOOD COUNT 8.3 10^3/ul (4.5-11.0)
[2018-02-02 09:19] LABS: ALB/GLOB RATIO 1.2 (1.1-1.8); ALBUMIN 3.6 g/dL (3.0-4.8); ALT/SGPT 19 U/L (7-56); AST/SGOT 26 U/L (17-59); BLOOD UREA NITROGEN 20 mg/dL (7-21); CALCIUM 8.4 mg/dL (8.4-10.5); GFR AFRICAN-AMERICAN > 60; GFR NON-AFRICAN AMERICAN 53
[2018-02-02] MEDS: Amoxicillin-Clav 875-125 mg Tab PO SCH (09:24)
[2018-02-02] MEDS ORDERED: POLYETHYLENE GLYCOL 3350 17 GM/Dose PACKET PO SCH (10:00)
[2018-02-02] MEDS ORDERED: levoFLOXacin 750 MG TAB PO SCH (10:00)
[2018-02-02] MEDS ORDERED: levoFLOXacin 500 MG TAB PO SCH (10:00)
--- NOTE | 2018-02-02 10:28 | CP.PCM.PN ---
Subjective - Date & Time of Evaluation Date of Evaluation: 02/02/18 Time of Evaluation: 10:24 - Subjective Subjective: Podiatry Progress Note for Dr. Khan 77M seen for chronic right heel ulceration. Patient is AAO x 3 and NAD, resting comfortably in bed at time of visit. States that he has been doing minimal walking in a surgical shoe with only slight pain to the ulceration site. Denies any pain to the area. Denies any new pedal complaints at this time or any acute overnight events. States that his cardiac catheterization went well yesterday. Denies any recent N/V/F/C/CP/SOB/D/posterior calf pain when squeezed. Objective - Vital Signs/Intake and Output Vital Signs (last 24 hours): Temp Pulse Resp BP Pulse Ox 98.2 F 69 18 130/60 97 02/02/18 05:51 02/02/18 05:51 02/02/18 05:51 02/02/18 09:24 02/02/18 05:51 Intake and Output: 02/02/18 02/02/18 06:59 18:59 Intake Total 480 Balance 480 - Medications Medications: Current Medications Amoxicillin/Clavulanate Potassium (Augmentin 875 Mg-125 Mg Tab) 1 tab PO Q12 [facility] PRN Reason: Protocol Last Admin: 02/02/18 09:24 Dose: 1 tab Aspirin (Ecotrin) 81 mg PO DAILY [facility] Last Admin: 02/02/18 09:24 Dose: 81 mg Atorvastatin Calcium (Lipitor) 20 mg PO DIN [facility] Last Admin: 02/01/18 17:50 Dose: 20 mg Docusate Sodium (Colace) 100 mg PO BID [facility] Last Admin: 02/02/18 09:56 Dose: 100 mg Ferrous Sulfate (Feosol) 324 mg PO TID [facility] Last Admin: 02/02/18 09:24 Dose: 324 mg Furosemide (Lasix) 40 mg PO DAILY [facility] Last Admin: 02/02/18 09:24 Dose: 40 mg Glyburide (Micronase) 5 mg PO 0800,1700 [facility] Last Admin: 02/02/18 09:24 Dose: 5 mg Guaifenesin/Dextromethorphan (Robitussin Dm) 10 ml PO Q4H PRN PRN Reason: Cough Last Admin: 01/31/18 01:08 Dose: 10 ml Insulin Human Regular (Humulin R Med) 0 units SC ACHS [facility] PRN Reason: Protocol Last Admin: 02/02/18 08:30 Dose: Not Given Multivitamins (Thera Tab) 1 tab PO 0800 [facility] Last Admin: 02/02/18 09:24 Dose: 1 tab Mupirocin (Bactroban Ointment) 0 gm TOP BID [facility] Last Admin: 02/01/18 17:48 Dose: Not Given Ondansetron HCl (Zofran Inj) 4 mg IVP Q6H PRN PRN Reason: Nausea/Vomiting Pantoprazole Sodium (Protonix Ec Tab) 40 mg PO ACB [facility] Last Admin: 02/02/18 06:55 Dose: 40 mg Polyethylene Glycol (Miralax) 17 gm PO DAILY [facility] Last Admin: 02/02/18 09:56 Dose: 17 gm Propranolol HCl (Inderal La) 80 mg PO 2300 [facility] Last Admin: 02/01/18 22:12 Dose: 80 mg Silver Sulfadiazine (Silvadene 1% 25 Gm) 0 gm TP DAILY [facility] Last Admin: 02/01/18 10:58 Dose: Not Given Ticagrelor (Brilinta) 90 mg PO BID [facility] Last Admin: 02/02/18 09:24 Dose: 90 mg - Labs Labs: 02/02/18 08:40 02/02/18 08:40 PT 13.1 SECONDS (9.4-12.5) H 01/31/18 06:10 INR 1.14 01/31/18 06:10 APTT 36.2 Seconds (25.1-36.5) 01/31/18 12:40 - Constitutional Appears: Well, Non-toxic, No Acute Distress - Extremities Exam Additional comments: RLE focused exam: Vasc: DP/PT pulses faintly palpable 1/4 b/l. Skin temperature warm to warm from proximal to distal. CFT < 3 seconds to all digits b/l. No edema noted b/l Neuro: Epicritic and protective sensation grossly absent b/l Derm: Approximately 13 cm x 5 cm x 0.5 cm ulceration noted to medial heel of right foot. Dry stable eschar noted at wound base. No drainage, no malodor, no erythema, no purulence, no fluctuance, no tracking/tunneling/undermining, no probe to bone. No other clinical signs of infection. No other dermatological abnormalities noted at this time MSK: No tenderness on palpation to wound site. ROM WNL to all major joints. Muscle strength 5/5 in all major muscle groups. Previous amputation of hallux noted, well healed. No other gross deformities noted - Neurological Exam Neurological Exam: Alert, Awake, Oriented x3 - Psychiatric Exam Psychiatric exam: Normal Affect, Normal Mood Assessment and Plan - Assessment and Plan (Free Text) Assessment: 77M well known to our service seen at bedside for chronic right foot heel ulceration Plan: Patient seen and evaluated Plan discussed with Dr. Tolbert Afebrile, absent leukocytosis Wound cleansed with normal saline Wound dressed with bactroban, silvadene, gauze, ABD, Kirlix Patient instructed to continue using surgical shoe at all times of ambulation and to limit ambulation when possible No plan for surgical intervention at this time Podiatry will continue to follow while patient in house
[2018-02-02] MEDS: Mupirocin 2% Ointment 15 GM TUBE TOP SCH (10:56)
[2018-02-02] MEDS: Silver Sulfadiazine 1% Cream (25 gm) TP SCH (10:57)
[2018-02-02 12:50] VITALS: BP 126/71; RESP 17; TEMP 98.3
--- NOTE | 2018-02-02 13:43 | PN ---
Copied To: Moe House MD Attending MD: Moe House MD DATE: 02/02/2018 REASON FOR CONSULTATION AND FOLLOWUP: Acute coronary syndrome, unstable angina, coronary artery disease, status post multivessel PTCA. SUBJECTIVE: The patient denies any chest pain, shortness of breath, or any palpitation. The patient is lying comfortable. OBJECTIVE: GENERAL: Not in any apparent distress. VITAL SIGNS: Temperature afebrile, heart rate 69, blood pressure 124/58. HEENT: PERRLA. Extraocular muscles intact. NECK: Supple. No carotid bruits or thyromegaly. CHEST: Clear to auscultation. HEART: S1, S2 regular. ABDOMEN: Soft. EXTREMITIES: Clubbing and cyanosis negative. LABORATORY DATA: WBC 8.3, hemoglobin 8.2, hematocrit 27.5, platelet count 310. Chemistry shows sodium 141, potassium 3.7, chloride 102, carbon dioxide 29, anion gap of 14, BUN 20, creatinine is 1.3. Iron level was sent yesterday, found to be 26. TIBC . 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 RECOMMENDATIONS: Repeat chest x-ray is okay. on the right lateral ankle, being followed by Dr. Sheridan. Repeat chest x-ray done yesterday. No active disease. The patient's echo done, looks good LV function, official pending because Infinit system was down. Continue Augmentin as ordered by Dr. Sheridan. Continue Brilinta. Continue aspirin. Continue propranolol. Continue potassium supplement. Today, lab is pending. Possible discharge home. We will discontinue telemetry. Iron supplement is started. The patient may get up from iron infusion. Thank you, Dr. Castrejon, for providing us the opportunity in taking care of the patient, Favian Webster. Moe House MD cc: Rama Castrejon MD
--- NOTE | 2018-02-02 14:07 | CP.PCM.PN ---
Subjective - Date & Time of Evaluation Date of Evaluation: 02/02/18 Time of Evaluation: 13:15 - Subjective Subjective: Infectious Disease Follow Up: February 02, 2018 77 y/o male with PMH of HTN, HLD, DM2, chronic right foot ulcer, CHF, ICD, COPD , severe PVD. presents to ED with productive cough with yellow/clear sputum that started one week ago with URI syptoms. Patient came to ED at that time, discharged with cough drops which did not help at all and it was getting worse and decided to come today to ED. Cough is associated with SOB that lasts 2-3 seconds with exertion. Patient denied associated symptoms of chest pain, hemoptysis, fever, chills, wheezing, palpitations, dizziness. He sleeps on 3 pillows for years, activity level is limited to climbing one flight of steps at home few times a day and dinning out sometimes. 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 His last echo was done 4 month ago, records unavailable, but last [place] [facility] [place] EF 55%, LVH. Patient had severe PVD for which he went peripheral cath with Dr Crane at [facility] [place] that shows severe right ant/post tibial stenosis for which bypass surgery was recommended if the right foot ulcer does not heal, left renal artery stent was placed 2/2 severe stenosis. Patient also had ICD placed and is currently taking ASA and Brilenta. Taken for cardiac cath today and had placement of 3 stents. Reason for Augmentin daily dosage was as prophylaxis to infection of the exposed pacemaker wires in the left upper chest (primary) and the large necrotic ulcer in the right lateral ankle (secondary). Noted that the patient was in the ER a week ago and discharged with diagnosis of a pneumonia. His Augmentin was increased to BID at this time by the ER. Repeat Chest X-ray showing no active disease. Patient antibiotics downgraded to Augmentin. Objective - Vital Signs/Intake and Output Vital Signs (last 24 hours): Temp Pulse Resp BP Pulse Ox 98.3 F 69 17 126/71 97 02/02/18 12:00 02/02/18 05:51 08/08/18 12:00 02/02/18 12:00 02/02/18 05:51 Intake and Output: 02/02/18 02/02/18 06:59 18:59 Intake Total 480 Balance 480 - Medications Medications: Current Medications Amoxicillin/Clavulanate Potassium (Augmentin 875 Mg-125 Mg Tab) 1 tab PO Q12 [facility] PRN Reason: Protocol Last Admin: 02/02/18 09:24 Dose: 1 tab Aspirin (Ecotrin) 81 mg PO DAILY [facility] Last Admin: 02/02/18 09:24 Dose: 81 mg Atorvastatin Calcium (Lipitor) 20 mg PO DIN [facility] Last Admin: 02/01/18 17:50 Dose: 20 mg Docusate Sodium (Colace) 100 mg PO BID [facility] Last Admin: 02/02/18 09:56 Dose: 100 mg Ferrous Sulfate (Feosol) 324 mg PO TID [facility] Last Admin: 02/02/18 13:00 Dose: 324 mg Furosemide (Lasix) 40 mg PO DAILY [facility] Last Admin: 02/02/18 09:24 Dose: 40 mg Glyburide (Micronase) 5 mg PO 0800,1700 [facility] Last Admin: 02/02/18 09:24 Dose: 5 mg Guaifenesin/Dextromethorphan (Robitussin Dm) 10 ml PO Q4H PRN PRN Reason: Cough Last Admin: 01/31/18 01:08 Dose: 10 ml Insulin Human Regular (Humulin R Med) 0 units SC ACHS [facility] PRN Reason: Protocol Last Admin: 02/02/18 12:18 Dose: Not Given Multivitamins (Thera Tab) 1 tab PO 0800 [facility] Last Admin: 02/02/18 09:24 Dose: 1 tab Mupirocin (Bactroban Ointment) 0 gm TOP BID [facility] Last Admin: 02/02/18 10:56 Dose: Not Given Ondansetron HCl (Zofran Inj) 4 mg IVP Q6H PRN PRN Reason: Nausea/Vomiting Pantoprazole Sodium (Protonix Ec Tab) 40 mg PO ACB [facility] Last Admin: 02/02/18 06:55 Dose: 40 mg Polyethylene Glycol (Miralax) 17 gm PO DAILY [facility] Last Admin: 02/02/18 09:56 Dose: 17 gm Propranolol HCl (Inderal La) 80 mg PO 2300 [facility] Last Admin: 02/01/18 22:12 Dose: 80 mg Silver Sulfadiazine (Silvadene 1% 25 Gm) 0 gm TP DAILY [facility] Last Admin: 02/02/18 10:57 Dose: Not Given Ticagrelor (Brilinta) 90 mg PO BID [facility] Last Admin: 02/02/18 09:24 Dose: 90 mg - Labs Labs: 02/02/18 08:40 02/02/18 08:40 PT 13.1 SECONDS (9.4-12.5) H 01/31/18 06:10 INR 1.14 01/31/18 06:10 APTT 36.2 Seconds (25.1-36.5) 01/31/18 12:40 - Constitutional Appears: Non-toxic, No Acute Distress, Chronically Ill - Head Exam Head Exam: ATRAUMATIC, NORMOCEPHALIC - Eye Exam Eye Exam: EOMI, PERRL Pupil Exam: NORMAL ACCOMODATION, PERRL - ENT Exam ENT Exam: Mucous Membranes Moist, Normal External Ear Exam, TM's Normal Bilaterally - Neck Exam Neck Exam: Full ROM, Normal Inspection - Respiratory Exam Respiratory Exam: Clear to Ausculation Bilateral, NORMAL BREATHING PATTERN. absent: Rales, Rhonchi, Wheezes - Cardiovascular Exam Cardiovascular Exam: REGULAR RHYTHM, RRR, +S1, +S2 - GI/Abdominal Exam GI & Abdominal Exam: Soft, Normal Bowel Sounds. absent: Distended, Tenderness - Extremities Exam Extremities Exam: Full ROM Additional comments: large ulcer with black eschar/gangreneous ulcers on the right ankle laterally. - Neurological Exam Neurological Exam: Alert, Awake, CN II-XII Intact, Oriented x3 - Psychiatric Exam Psychiatric exam: Normal Affect, Normal Mood - Skin Additional comments: As Above. Assessment and Plan - Assessment and Plan (Free Text) Assessment: 77 yo male well known to me for the last few years. On Augmentin normally for prophylatic therapy for the exposed pacemaker wires and the large gangrenous ulcers of the right lateral ankle. He has been on this regimen for over 2 years now and follows regularly in my office during this time. The patient was taken to cardiac cath and required stenting of 3 vessels today. Agree with repeat Chest X-ray as the patient more likely had CHF exacerabation rather than pneumonia. Since cath, the patient no longer has cough or SOB. Can resume Augmentin for the antibiotic prophylaxis therapy. Supportive care. Stopped Levaquin. Continue Augmentin on discharge for prophylaxis. Thank you for allowing me to participate in the care of the patient, we will follow with you.
--- NOTE | 2018-02-02 14:11 | CP.PCM.PN ---
Subjective - Date & Time of Evaluation Date of Evaluation: 02/02/18 Time of Evaluation: 13:30 - Subjective Subjective: Infectious Disease Follow Up: February 02, 2018 73 yo male with presentation of SOB and cough productive of sputum. The patient has had symptoms for the past 3 weeks. He was recently in [place] for his son's wedding. Patient states that "food does not taste the same". He has lost [address] scan showing extensive right lower lobe pneumonia but what is more concerning is the extensive mediastinal and hilar adenopathy with lytic lesion at T7. The patient has been started on IV Rocephin and Azithromycin for antibiotic care. No WBC. Procalcitonin of 8.8 at this time. New onset Atrial Fibrillation two nights ago... transferred to telemetry. The family and the patient have been refusing biopsy at this time. Emphasized to the patient and present family members (daughter and son-in-law) importance of the biopsy in determining diagnosis and type of treatment options available for the patient. Patient states that he is not sleeping well in the hospital. Noted the patient with Atrial fibrillation last night. Taken for lung biopsy this week. The patient with hemoptysis. Seen by radiation oncology Dr. León for palliative radiation evaluation. Receiving radiation. Noted transaminitis... this has been downtrending the last few days. Hemoptysis improved. Pain in chest/lungs subsiding. Appetite still weak. 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 For transfer to TCU. Objective - Vital Signs/Intake and Output Vital Signs (last 24 hours): Temp Pulse Resp BP Pulse Ox 98.3 F 69 17 126/71 97 02/02/18 12:00 02/02/18 05:51 02/02/18 12:00 02/02/18 12:00 02/02/18 05:51 Intake and Output: 02/02/18 02/02/18 06:59 18:59 Intake Total 480 Balance 480 - Labs Labs: 02/02/18 08:40 02/02/18 08:40 PT 13.1 SECONDS (9.4-12.5) H 01/31/18 06:10 INR 1.14 01/31/18 06:10 APTT 36.2 Seconds (25.1-36.5) 01/31/18 12:40 - Constitutional Appears: Non-toxic, No Acute Distress, Chronically Ill - Head Exam Head Exam: ATRAUMATIC, NORMOCEPHALIC - Eye Exam Eye Exam: EOMI, PERRL Pupil Exam: NORMAL ACCOMODATION, PERRL - ENT Exam ENT Exam: Mucous Membranes Moist, Normal External Ear Exam, TM's Normal Bilaterally - Neck Exam Neck Exam: Full ROM, Normal Inspection - Respiratory Exam Respiratory Exam: Clear to Ausculation Bilateral, NORMAL BREATHING PATTERN. absent: Rales, Rhonchi, Wheezes - Cardiovascular Exam Cardiovascular Exam: REGULAR RHYTHM, RRR, +S1, +S2 - GI/Abdominal Exam GI & Abdominal Exam: Soft, Normal Bowel Sounds. absent: Distended, Tenderness - Extremities Exam Extremities Exam: Full ROM, Normal Inspection - Neurological Exam Neurological Exam: Alert, Awake, CN II-XII Intact, Oriented x3 - Psychiatric Exam Psychiatric exam: Normal Affect, Normal Mood - Skin Skin Exam: Intact, Normal Color Assessment and Plan - Assessment and Plan (Free Text) Assessment: 73 yo male with large amount of weight loss (19 lbs) and multiple CT lung findings. The patient started on Ceftriaxone and Azithromycin. Must rule out malignancy. Check for Tuberculosis. Check PPD and Quantiferon. Consider surgery or IR evaluation for biopsy of suspicious areas. Supportive care. May need Heme/Onc evaluation as well. Check ESR and C-Reactive Protein. The most likely diagnosis given the current symptoms is malignancy. Given overall picture, Tuberculosis is a much less likely diagnosis. Malignancy is extremely likely. Overall long-term prognosis is very poor. Discussed with family and the patient importance of a biopsy in determining diagnosis and available care/ treatment options. Rocephin on hold due to sudden transaminitis. Taken for lung/liver biopsy. Pathology pending. Patient has chest tube in place for pneumothorax from procedure. Hemoptysis improving. For Port-A-Cath on Wednesday and possible chemotherapy. Pathology showing small cell carcinoma. Port-A-Cath placed. Chemotherapy started on Wednesday. For transfer to TCU. Thank you for allowing me to participate in the care of the patient, we will follow with you.
--- NOTE | 2018-02-02 14:22 | CP.PCM.DIS ---
<Brandon Elliott - Last Filed: 02/02/18 16:33> Provider - Provider Date of Admission: 01/30/18 21:37 Attending physician: Rama Castrejon MD Primary care physician: Dr. Bowling Consults: Cardiology: Dr. House Infectious disease: Dr. Sheridan Podiatry: Dr. Tolbert Time Spent in preparation of Discharge (in minutes): 100 Diagnosis - Discharge Diagnosis (1) NSTEMI (non-ST elevated myocardial infarction) Status: Acute (2) Infected pacemaker Status: Acute Hospital Course - Lab Results Lab Results: Most Recent Lab Values WBC 8.3 10^3/ul (4.5-11.0) 02/02/18 08:40 RBC 3.88 10^6/uL (3.5-6.1) 02/02/18 08:40 Hgb 8.2 g/dL (14.0-18.0) L 02/02/18 08:40 Hct 27.5 % (42.0-52.0) L 02/02/18 08:40 MCV 70.9 fl (80.0-105.0) L 02/02/18 08:40 MCH 21.1 pg (25.0-35.0) L 02/02/18 08:40 MCHC 29.8 g/dl (31.0-37.0) L 02/02/18 08:40 RDW 18.0 % (11.5-14.5) H 02/02/18 08:40 Plt Count 310 10^3/uL (120.0-450.0) 02/02/18 08:40 MPV 8.4 fl (7.0-11.0) 02/02/18 08:40 Gran % 71.4 % (50.0-68.0) H 02/02/18 08:40 Lymph % (Auto) 17.6 % (22.0-35.0) L 02/02/18 08:40 [place] % (Auto) 7.1 % (1.0-6.0) H 02/02/18 08:40 Eos % (Auto) 3.8 % (1.5-5.0) 02/02/18 08:40 Baso % (Auto) 0.1 % (0.0-3.0) 02/02/18 08:40 Gran # 5.95 (1.4-6.5) 02/02/18 08:40 Lymph # (Auto) 1.5 (1.2-3.4) 02/02/18 08:40 [place] # (Auto) 0.6 (0.1-0.6) 02/02/18 08:40 Eos # (Auto) 0.3 (0.0-0.7) 02/02/18 08:40 Baso # (Auto) 0.01 K/mm3 (0.0-2.0) 02/02/18 08:40 Hemoglobin A 97.4 Percent (>96.0) 01/31/18 07:00 Hemoglobin A2 1.6 Percent (1.8-3.5) L 01/31/18 07:00 Hemoglobin C 0.0 Percent (0.0-0.0) 01/31/18 07:00 Hemoglobin F () <1.0 Percent (<2.0) 01/31/18 07:00 Hemoglobin S 0.0 Percent (0.0-0.0) 01/31/18 07:00 Variant Hemoglobin 0.0 Percent (0.0-0.0) 01/31/18 07:00 Hemoglobinopathy Red Blood Count 4.26 Mill/mcL (4.20-5.80) 01/31/18 07:00 Hemoglobinopathy Hct 30.2 % (38.5-50.0) L 01/31/18 07:00 Hemoglobinopathy Hgb 9.2 g/dL (13.2-17.1) L 01/31/18 07:00 Hemoglobinopathy MCV 70.9 fL (80.0-100.0) L 01/31/18 07:00 Hemoglobinopathy MCH 21.7 pg (27.0-33.0) L 01/31/18 07:00 Hemoglobinopathy RDW 19.9 % (11.0-15.0) H 01/31/18 07:00 Hemoglobinopathy Interp See note 01/31/18 07:00 PT 13.1 SECONDS (9.4-12.5) H 01/31/18 06:10 INR 1.14 01/31/18 06:10 APTT 36.2 Seconds (25.1-36.5) 01/31/18 12:40 Sodium 138 mmol/L (132-148) 02/02/18 08:40 Potassium 4.4 mmol/L (3.6-5.0) 02/02/18 08:40 Chloride 101 mmol/L (98-107) 02/02/18 08:40 Carbon Dioxide 26 mmol/L (21-33) 02/02/18 08:40 Anion Gap 16 (10-20) 02/02/18 08:40 BUN 20 mg/dL (7-21) 02/02/18 08:40 Creatinine 1.3 mg/dl (0.8-1.5) 02/02/18 08:40 Est GFR ( Amer) > 60 02/02/18 08:40 Est GFR (Non-Af Amer) 53 02/02/18 08:40 POC Glucose (mg/dL) 135 mg/dL (65-110) H 02/02/18 11:33 Random Glucose 172 mg/dL (70-110) H 02/02/18 08:40 Hemoglobin A1c 7.8 % (4.2-6.5) H 02/01/18 06:30 Calcium 8.4 mg/dL (8.4-10.5) 02/02/18 08:40 Phosphorus 2.9 mg/dL (2.5-4.5) 02/02/18 08:40 Magnesium 1.8 mg/dL (1.7-2.2) 02/02/18 08:40 Iron 26 ug/dL (45-180) L 02/01/18 06:30 TIBC 376 ug/dL (261-462) 02/01/18 06:30 % Saturation 7 % (20-55) L 02/01/18 06:30 Ferritin 13.6 ng/mL 02/01/18 06:30 Total Bilirubin 0.2 mg/dL (0.2-1.3) 02/02/18 08:40 AST 26 U/L (17-59) 02/02/18 08:40 ALT 19 U/L (7-56) 02/02/18 08:40 Alkaline Phosphatase 85 U/L (38-126) 02/02/18 08:40 Lactate Dehydrogenase 432 U/L (333-699) 01/31/18 09:50 Total Creatine Kinase 140 U/L (35-230) 01/31/18 09:50 Troponin I 0.92 ng/mL H* 01/31/18 09:50 NT-Pro-B Natriuret Pep 1020 pg/mL (0-450) H 01/30/18 20:25 Total Protein 6.7 g/dL (5.8-8.3) 02/02/18 08:40 Albumin 3.6 g/dL (3.0-4.8) 02/02/18 08:40 Globulin 3.1 gm/dL 02/02/18 08:40 Albumin/Globulin Ratio 1.2 (1.1-1.8) 02/02/18 08:40 Triglycerides 187 mg/dL (35-160) H 02/01/18 06:30 Cholesterol 128 mg/dL (130-200) L 02/01/18 06:30 LDL Cholesterol Direct 69 mg/dL (0-129) 02/01/18 06:30 HDL Cholesterol 21 mg/dL (29-60) L 02/01/18 06:30 Vitamin B12 239 pg/mL (239-931) 02/01/18 06:30 Folate 11.0 ng/mL 02/01/18 06:30 TSH 3rd Generation 2.50 mIU/mL (0.46-4.68) 02/01/18 06:30 Urine Color Yellow (YELLOW) 01/31/18 06:45 Urine Appearance Clear (CLEAR) 01/31/18 06:45 Urine pH 5.5 (4.7-8.0) 01/31/18 06:45 Ur Specific [place] 1.010 (1.005-1.035) 01/31/18 06:45 Urine Protein Negative mg/dL (<30 mg/dL) 01/31/18 06:45 Urine Glucose (UA) Negative mg/dL (NEGATIVE) 01/31/18 06:45 Urine Ketones Negative mg/dL (NEGATIVE) 01/31/18 06:45 Urine Blood Negative (NEGATIVE) 01/31/18 06:45 Urine Nitrate Negative (NEGATIVE) 01/31/18 06:45 Urine Bilirubin Negative (NEGATIVE) 01/31/18 06:45 Urine Urobilinogen 0.2 E.U./dL (<1 E.U./dL) 01/31/18 06:45 Ur Leukocyte Esterase Negative [place]la/uL (NEGATIVE) 08/06/18 06:45 - Hospital Course Hospital Course: 77 year old male with past medical history of hypertension, hyperlipidemia, diabetes mellitus, chronic right foot ulcer, BPH, CHF, ICD, COPD, and PVD presented with cough with green sputum on 01/30. On presentation, troponin valvesx3 from 01/30 to 01/31 were 0.92, 1.10, and 0.97. EKG on 01/30 showed sinus rhythm with 1st degree AV block with heart rate of 80, DE interval of 230, QRS interval of 76, and QTC of 429. Cardiac catherization took place at 14:00 on 01/31. Catherization showed circ 99% stenosis, distal RCA 90% stenosis, and mid RCA 80% stenosis. 3 VALERIY stents were placed in distal RCA, mid RCA, and mid circumflex artery. Patient had one dose of aspirin 325 mg and was subsequently started on aspirin 81 mg daily. Lipid pancel showed high triglycerides at 187 and low HDL of 21. Patient was also on plavix 75 mg, lipitor 20 mg, and propanolol 80 mg. Prophylactic augmentin was started by Dr. Sheridan for exposed wires of ICD on 01/31. On presentation on 01/30, chest x ray showed no acute findings. However, due to patient's symptoms, patient was started on levaquin 750 mg daily on 01/30, which was to be a 7 day course. However, repeat chest x ray on 02/01 showed no acute disease once again and patient's symptoms had fully resolved. As a result, levaquin was stopped as per Dr. Sheridan. Patient has had chronic microcytic anemia with downtrending hemoglobin from 9.4 on presentation to 8.0 on 02/01. Patient hemoglobin is 8.2 on 02/02. Patient was given ferrous gluconate 325 mg TID on 01/31 which was discontinued on 02/01. Patient complained of being unable to have a bowel movement since admission today. As a result, miralax and colace was given today to help patient have a bowel movement. Patient has chronic right foot ulceration. Dr. Tolbert was consulted for podiatry. Dr. Tolbert has dressed wound with silvadene, mupirocin, gauze, ABD, and kirlix from 01/31 to 02/02. Per podiatry, there was no plan for surgery. Patient has been medically cleared for discharge by cardiology, podiatry, and infectious disease consultants. Patient can be discharged with augmentin 875 mg BID, aspirin 81, docusate 100 mg BID, esomeprazole 40 mg daily, ferrous sulfate 324 mg TID, lasic 40 mg daily, glyburide 5 mg BID, mupirocin 2% ointment 15 gm tube topical BID, miralax 17 gm dose packet daily, propanolol 80 mg daily, silver sulfadiazine 10 gm cream topical daily, simvastatin 40 mg daily, and brilinta 90 mg BID. Patient should follow up with PCP, Dr. Bowling within 7 days. Also, follow up with Dr. House, Dr. Tolbert, and Dr. Sheridan within 7 days. Patient was told to return to the emergency department if the symptoms reoccur. Above is a brief summary of the patient's hospital course. For a more detailed encounter, please refer to medical records. - Date & Time of H&P Date of H&P: 01/30/18 Time of H&P: 23:52 Discharge Exam - Head Exam Head Exam: ATRAUMATIC, NORMOCEPHALIC - Eye Exam Eye Exam: EOMI, PERRL - Respiratory Exam Respiratory Exam: Clear to PA & Lateral, NORMAL BREATHING PATTERN - Cardiovascular Exam Cardiovascular Exam: REGULAR RHYTHM - GI/Abdominal Exam GI & Abdominal Exam: Normal Bowel Sounds - Extremities Exam Extremities exam: full ROM Additional comments: right foot covered with surgical shoe due to right foot wound - Neurological Exam Neurological exam: Alert, CN II-XII Intact, Oriented x3, Reflexes Normal - Psychiatric Exam Psychiatric exam: Normal Affect, Normal Mood - Skin Skin Exam: Dry, Intact, Normal Color Discharge Plan - Discharge Medications Prescriptions: Docusate [Colace] 100 mg PO BID #60 cap Ferrous Sulfate [Feosol] 324 mg PO TID #90 ect Multivitamin Therapeutic Tab [Thera Tab] 1 tab PO 0800 #30 tab Mupirocin 2% Ointment [Bactroban Ointment] 5 gm TOP BID #1 tube Polyethylene Glycol 3350 [Miralax] 17 gm PO DAILY #1 packet Silver Sulfadiazine 1% 25 gm [Silvadene 1% 25 gm] 10 gm TP DAILY #1 cream - Follow Up Plan Condition: FAIR Disposition: HOME/ ROUTINE Instructions: Heart Healthy Diet, Heart Failure, Adult (DC), Cardiac Catheterization (DC), Heart Attack (DC), Coronary Stenting (DC), Diabetes Diet , Coronary Heart Disease (DC), Myocardial Infarction (DC), Myocardial Infarction (GEN) Additional Instructions: - Follow up with Primary MD in 7 days. - Follow up with Dr. House (mathematics department chair) as outpatient in 10 days. - Follow up with Dr. Sheridan (infectious disease) in 2 weeks. - Follow up with Dr. Khan (fruit washer) in 2 weeks. - Please take home meds as previously prescribed. - Please take iron daily 3 times a day along with stool softener. - Please return to ED if symptoms reoccur. Referrals: Moe House MD [Staff Provider] - Radha Tolbert DPM [Staff Provider] - Earnest Sheridan MD [Staff Provider] - <Rama Castrejon - Last Filed: 02/03/18 07:50> Provider - Provider Date of Admission: 01/30/18 21:37 Attending physician: Rama Castrejon MD Hospital Course - Lab Results Lab Results: Most Recent Lab Values WBC 8.3 10^3/ul (4.5-11.0) 02/02/18 08:40 RBC 3.88 10^6/uL (3.5-6.1) 02/02/18 08:40 Hgb 8.2 g/dL (14.0-18.0) L 02/02/18 08:40 Hct 27.5 % (42.0-52.0) L 02/02/18 08:40 MCV 70.9 fl (80.0-105.0) L 02/02/18 08:40 MCH 21.1 pg (25.0-35.0) L 02/02/18 08:40 MCHC 29.8 g/dl (31.0-37.0) L 02/02/18 08:40 RDW 18.0 % (11.5-14.5) H 02/02/18 08:40 Plt Count 310 10^3/uL (120.0-450.0) 02/02/18 08:40 MPV 8.4 fl (7.0-11.0) 02/02/18 08:40 Gran % 71.4 % (50.0-68.0) H 02/02/18 08:40 Lymph % (Auto) 17.6 % (22.0-35.0) L 02/02/18 08:40 [place] % (Auto) 7.1 % (1.0-6.0) H 02/02/18 08:40 Eos % (Auto) 3.8 % (1.5-5.0) 02/02/18 08:40 Baso % (Auto) 0.1 % (0.0-3.0) 02/02/18 08:40 Gran # 5.95 (1.4-6.5) 02/02/18 08:40 Lymph # (Auto) 1.5 (1.2-3.4) 02/02/18 08:40 [place] # (Auto) 0.6 (0.1-0.6) 02/02/18 08:40 Eos # (Auto) 0.3 (0.0-0.7) 02/02/18 08:40 Baso # (Auto) 0.01 K/mm3 (0.0-2.0) 02/02/18 08:40 Hemoglobin A 97.4 Percent (>96.0) 01/31/18 07:00 Hemoglobin A2 1.6 Percent (1.8-3.5) L 01/31/18 07:00 Hemoglobin C 0.0 Percent (0.0-0.0) 01/31/18 07:00 Hemoglobin F () <1.0 Percent (<2.0) 01/31/18 07:00 Hemoglobin S 0.0 Percent (0.0-0.0) 01/31/18 07:00 Variant Hemoglobin 0.0 Percent (0.0-0.0) 01/31/18 07:00 Hemoglobinopathy Red Blood Count 4.26 Mill/mcL (4.20-5.80) 01/31/18 07:00 Hemoglobinopathy Hct 30.2 % (38.5-50.0) L 01/31/18 07:00 Hemoglobinopathy Hgb 9.2 g/dL (13.2-17.1) L 01/31/18 07:00 Hemoglobinopathy MCV 70.9 fL (80.0-100.0) L 01/31/18 07:00 Hemoglobinopathy MCH 21.7 pg (27.0-33.0) L 01/31/18 07:00 Hemoglobinopathy RDW 19.9 % (11.0-15.0) H 01/31/18 07:00 Hemoglobinopathy Interp See note 01/31/18 07:00 PT 13.1 SECONDS (9.4-12.5) H 01/31/18 06:10 INR 1.14 01/31/18 06:10 APTT 36.2 Seconds (25.1-36.5) 01/31/18 12:40 Sodium 138 mmol/L (132-148) 02/02/18 08:40 Potassium 4.4 mmol/L (3.6-5.0) 02/02/18 08:40 Chloride 101 mmol/L (98-107) 02/02/18 08:40 Carbon Dioxide 26 mmol/L (21-33) 02/02/18 08:40 Anion Gap 16 (10-20) 02/02/18 08:40 BUN 20 mg/dL (7-21) 02/02/18 08:40 Creatinine 1.3 mg/dl (0.8-1.5) 02/02/18 08:40 Est GFR ( Amer) > 60 02/02/18 08:40 Est GFR (Non-Af Amer) 53 02/02/18 08:40 POC Glucose (mg/dL) 135 mg/dL (65-110) H 02/02/18 11:33 Random Glucose 172 mg/dL (70-110) H 02/02/18 08:40 Hemoglobin A1c 7.8 % (4.2-6.5) H 02/01/18 06:30 Calcium 8.4 mg/dL (8.4-10.5) 02/02/18 08:40 Phosphorus 2.9 mg/dL (2.5-4.5) 02/02/18 08:40 Magnesium 1.8 mg/dL (1.7-2.2) 02/02/18 08:40 Iron 26 ug/dL (45-180) L 02/01/18 06:30 TIBC 376 ug/dL (261-462) 02/01/18 06:30 % Saturation 7 % (20-55) L 02/01/18 06:30 Ferritin 13.6 ng/mL 02/01/18 06:30 Total Bilirubin 0.2 mg/dL (0.2-1.3) 02/02/18 08:40 AST 26 U/L (17-59) 02/02/18 08:40 ALT 19 U/L (7-56) 02/02/18 08:40 Alkaline Phosphatase 85 U/L (38-126) 02/02/18 08:40 Lactate Dehydrogenase 432 U/L (333-699) 01/31/18 09:50 Total Creatine Kinase 140 U/L (35-230) 01/31/18 09:50 Troponin I 0.92 ng/mL H* 01/31/18 09:50 NT-Pro-B Natriuret Pep 1020 pg/mL (0-450) H 01/30/18 20:25 Total Protein 6.7 g/dL (5.8-8.3) 02/02/18 08:40 Albumin 3.6 g/dL (3.0-4.8) 02/02/18 08:40 Globulin 3.1 gm/dL 02/02/18 08:40 Albumin/Globulin Ratio 1.2 (1.1-1.8) 02/02/18 08:40 Triglycerides 187 mg/dL (35-160) H 02/01/18 06:30 Cholesterol 128 mg/dL (130-200) L 02/01/18 06:30 LDL Cholesterol Direct 69 mg/dL (0-129) 02/01/18 06:30 HDL Cholesterol 21 mg/dL (29-60) L 02/01/18 06:30 Vitamin B12 239 pg/mL (239-931) 02/01/18 06:30 Folate 11.0 ng/mL 02/01/18 06:30 TSH 3rd Generation 2.50 mIU/mL (0.46-4.68) 02/01/18 06:30 Urine Color Yellow (YELLOW) 01/31/18 06:45 Urine Appearance Clear (CLEAR) 01/31/18 06:45 Urine pH 5.5 (4.7-8.0) 01/31/18 06:45 Ur Specific [place] 1.010 (1.005-1.035) 01/31/18 06:45 Urine Protein Negative mg/dL (<30 mg/dL) 01/31/18 06:45 Urine Glucose (UA) Negative mg/dL (NEGATIVE) 01/31/18 06:45 Urine Ketones Negative mg/dL (NEGATIVE) 01/31/18 06:45 Urine Blood Negative (NEGATIVE) 01/31/18 06:45 Urine Nitrate Negative (NEGATIVE) 01/31/18 06:45 Urine Bilirubin Negative (NEGATIVE) 01/31/18 06:45 Urine Urobilinogen 0.2 E.U./dL (<1 E.U./dL) 01/31/18 06:45 Ur Leukocyte Esterase Negative [place]la/uL (NEGATIVE) 01/31/18 06:45 Attending/Attestation - Attestation I have personally seen and examined this patient.: Yes I have fully participated in the care of the patient.: Yes I have reviewed all pertinent clinical information, including history, physical exam and plan: Yes Notes (Text): 02/03/18 07:48 Attending note; Patient seen and examined with resident. Patient is a 77 year old male with past medical history of hypertension, hyperlipidemia, diabetes, chronic right foot ulcer, BPH, CHF, ICD placement, COPD, and severe PVD presented with productive cough with green sputum. Status post cardiac cath and 3 drug-eluting stent placement. Continue aspirin, brillanta, propanalol, lasix and lipitor. Chest x-ray showed no acute infiltrate. on levofloxacin for bronchitis. Patient has chronically exposed AICD wire on the left chest. No discharge noted. Patient has chronic right foot ulcer. Dressing done by podiatry. Continue by mouth Augmentin as per ID Dr. sheridan. Patient was evaluated by infectious disease specialist in the hospital. Anemia; chronic. Denies any complaints. No active bleeding. Iron deficiency anemia; patient refused blood transfusion and IV iron. Continue by mouth iron. Chronic peripheral vascular disease and foot ulcer. Continue local care by podiatry. Patient is afebrile and nontoxic. Patient gets weekly wound care at [facility] [place]. Diabetes; continue Micronase. monitor blood sugar closely. Upon discharge the patient will follow-up with PMD Dr. Bowling.
--- NOTE | 2018-02-02 23:34 | CARD ---
APPROVED REPORT Date of service: 02/01/2018 EXAM: Two-dimensional and M-mode echocardiogram with Doppler and color Doppler. INDICATION LV Function:SystolicDiastolic Congestive Heart Failure 2D DIMENSIONS Left Atrium (2D)3.8 (1.6-4.0cm)IVSd1.3 (0.7-1.1cm) LVDd3.4 (3.9-5.9cm)PWd1.5 (0.7-1.1cm) LVDs2.5 (2.5-4.0cm)FS (%) 26.7 % LVEF (%)53.2 (>50%) M-Mode DIMENSIONS Aortic Root2.30 (2.2-3.7cm)Aortic Cusp Exc.1.60 (1.5-2.0cm) Aortic Valve AoV Peak Ocyhtlnw608.0cm/Henri Peak GR.8mmHg Mitral Valve MV E Gljsllfl17.4cm/sMV A Gfiwnckg815.0cm/sE/A ratio0.8 TDI E/Lateral E'0.0E/Medial E'0.0 Tricuspid Valve TR Peak [id number]/sRAP [id number] Peak Gr.25mmHg [id number] LEFT VENTRICLE The left ventricle is normal size. There is normal left ventricular wall thickness. The left ventricular function is normal.EF-55-60% There is normal LV segmental wall motion. Transmitral Doppler flow pattern is Grade III-reversible restrictive diastolic dysfunction. No left ventricle thrombus noted on this study. There is no ventricular septal defect visualized. There is no left ventricular aneurysm. There is no mass noted in the left ventricle. RIGHT VENTRICLE The right ventricle is normal size. There is normal right ventricular wall thickness. The right ventricular systolic function is normal. There is a pacemaker lead in the right ventricle. ATRIA The left atrium size is normal. The right atrium size is normal. There is a catheter/pacemaker lead seen in the right atrium. The interatrial septum is intact with no evidence for an atrial septal defect. AORTIC VALVE The aortic valve is thickened but opens well. No aortic regurgitation is present. There is no aortic valvular stenosis. There is no aortic valvular vegetation. MITRAL VALVE The mitral valve is thickened but opens well. Mitral regurgitation is mild to moderate. There is no mitral valve stenosis. There is no evidence of mitral valve prolapse. TRICUSPID VALVE The tricuspid valve leaflets are thickened , but open well. There is trace top mild tricuspid regurgitation.RVSP-35 mmof Hg There is no tricuspid valve stenosis. There is no tricuspid valve prolapse or vegetation. PULMONIC VALVE The pulmonary valve is normal in structure. There is trace pulmonic valvular regurgitation. There is no pulmonic valvular stenosis. GREAT VESSELS The aortic root is normal in size. The ascending aorta is normal in size. The pulmonary artery is normal. The IVC is normal in size and collapses >50% with inspiration. PERICARDIAL EFFUSION There is no pleural effusion. There is no pericardial effusion. <Conclusion> Normal chamber size.EF-55-60% Mitral regurgitation is mild to moderate. There is trace top mild tricuspid regurgitation.RVSP-35 mmof Hg PPM lead noted in RA/RV No vegetation noted
== END 2018-02-02 14:05 | disposition home or self-care (01) | DRG 246 ==
LOC: ED 19:46 → ERH 21:37 → 2RNO 01-31 00:26 → 2RSO 01-31 15:48
PROVIDERS: ADMIT Hospitalist; ATTEND Internal Medicine
PROC: 027136Z Dilation of Coronary Artery, Two Arteries with Three Drug-eluting Intraluminal Devices, Percutaneous Approach (ICD-10-PCS; principal; 2018-01-31)
PROC: 4A023N7 Measurement of Cardiac Sampling and Pressure, Left Heart, Percutaneous Approach (ICD-10-PCS; 2018-01-31)
PROC: B2151ZZ Fluoroscopy of Left Heart using Low Osmolar Contrast (ICD-10-PCS; 2018-01-31)
PROC: B2111ZZ Fluoroscopy of Multiple Coronary Arteries using Low Osmolar Contrast (ICD-10-PCS; 2018-01-31)
PROC: 3E033PZ Introduction of Platelet Inhibitor into Peripheral Vein, Percutaneous Approach (ICD-10-PCS; 2018-01-31)
DX: I21.4 Non-ST elevation (NSTEMI) myocardial infarction (principal); J18.9 Pneumonia, unspecified organism; T82.7XXA Infection and inflammatory reaction due to other cardiac and vascular devices, implants and grafts, initial encounter; E11.52 Type 2 diabetes mellitus with diabetic peripheral angiopathy with gangrene; L97.419 Non-pressure chronic ulcer of right heel and midfoot with unspecified severity; J44.0 Chronic obstructive pulmonary disease with (acute) lower respiratory infection; I25.110 Atherosclerotic heart disease of native coronary artery with unstable angina pectoris; E11.621 Type 2 diabetes mellitus with foot ulcer; L97.519 Non-pressure chronic ulcer of other part of right foot with unspecified severity; I11.0 Hypertensive heart disease with heart failure; I50.9 Heart failure, unspecified; D50.9 Iron deficiency anemia, unspecified; E78.1 Pure hyperglyceridemia; I44.0 Atrioventricular block, first degree; E78.5 Hyperlipidemia, unspecified; I48.91 Unspecified atrial fibrillation; N40.1 Benign prostatic hyperplasia with lower urinary tract symptoms; R35.0 Frequency of micturition; I36.1 Nonrheumatic tricuspid (valve) insufficiency; Y83.1 Surgical operation with implant of artificial internal device as the cause of abnormal reaction of the patient, or of later complication, without mention of misadventure at the time of the procedure; Z87.891 Personal history of nicotine dependence; Z79.84 Long term (current) use of oral hypoglycemic drugs; Z79.82 Long term (current) use of aspirin; Z86.74 Personal history of sudden cardiac arrest; Z95.5 Presence of coronary angioplasty implant and graft

== ENCOUNTER 2018-07-26 13:39 | Emergency (ER) | payer MEDICARE, MEDICAID ==
[2018-07-26 13:39] VITALS: BMI 24.7
[2018-07-26 14:14] VITALS: RESP 18
[2018-07-26 15:40] VITALS: TEMP 98.5
--- NOTE | 2018-07-26 15:48 | RAD ---
Date of service: 07/26/2018 HISTORY: cough x 3 days COMPARISON: 02/01/2018 FINDINGS: LUNGS: No infiltrate. Lung apices partially obscured by patient's mandible. PLEURA: No significant pleural effusion identified, no pneumothorax apparent. CARDIOVASCULAR: No aortic atherosclerotic calcification present. Normal cardiac size. Permanent pacemaker noted. OSSEOUS STRUCTURES: No significant abnormalities. VISUALIZED UPPER ABDOMEN: Normal. OTHER FINDINGS: None. IMPRESSION: No active disease.
[2018-07-26 15:52] LABS: BASO # 0.01 K/mm3 (0.0-2.0); BASO % 0.1 % (0.0-3.0); EOS # 0.3 (0.0-0.7); EOS % 2.8 % (1.5-5.0); HEMOGLOBIN 13.2 g/dL (14.0-18.0); LYMPH # 1.8 (1.2-3.4); LYMPH % 18.1 % (22.0-35.0); MEAN CELL VOLUME 86.4 fl (80.0-105.0); MEAN CORPUSCULAR HEMOGLOBIN 28.5 pg (25.0-35.0); MONO # 0.6 (0.1-0.6); MONO % 6.2 % (1.0-6.0); RBC 4.63 10^6/uL (3.5-6.1); RED CELL DISTRIBUTION WIDTH 14.5 % (11.5-14.5); WHITE BLOOD COUNT 10.1 10^3/uL (4.5-11.0)
[2018-07-26 16:01] LABS: ALB/GLOB RATIO 1.2 (1.1-1.8); ALBUMIN 4.4 g/dL (3.0-4.8); ALT/SGPT 24 U/L (7-56); AST/SGOT 37 U/L (17-59); BLOOD UREA NITROGEN 21 mg/dL (7-21); CALCIUM 9.5 mg/dL (8.4-10.5); GFR NON-AFRICAN AMERICAN 58
[2018-07-26 16:13] LABS: B-TYPE NATRIURETIC PEPTIDE 164 pg/mL (0-450); TROPONIN I < 0.01 ng/mL
--- NOTE | 2018-07-26 16:41 | ED PDOC ---
Arrival/HPI - General Chief Complaint: Cough, Cold, Congestion Time Seen by Provider: 07/26/18 14:18 Historian: Patient - History of Present Illness Narrative History of Present Illness (Text): 07/26/18 16:42 77-year-old male presents today with a three-day history of cough. Patient states he has a history of CHF and he was concerned that his CHF was acting up due to the recent cough. He denies fevers or chills. patient denies chest pain or shortness of breath. No headaches dizziness or weakness. No URI symptoms. He denies nausea vomiting diarrhea constipation. No abdominal pain. He denies lower leg swelling. No other complaints. Past Medical History - Provider Review Nursing Documentation Reviewed: Yes - Travel History Have you recently traveled outside [place] w/in the past 3 mons?: No - Past History Past History: Non-Contributing - Infectious Disease Hx of Infectious Diseases: None - Cardiac Hx Cardiac Disorders: Yes Hx Congestive Heart Failure: Yes Hx Hypertension: Yes Hx Pacemaker: Yes - Pulmonary Hx Respiratory Disorders: Yes Hx Asthma: Yes Hx Chronic Obstructive Pulmonary Disease (COPD): Yes - Neurological Hx Neurological Disorder: No - HEENT Hx HEENT Disorder: No - Renal Hx Renal Disorder: No - Endocrine/Metabolic Hx Endocrine Disorders: Yes Hx Diabetes Mellitus Type 2: Yes - Hematological/Oncological Hx Blood Disorders: Yes Hx Cancer: Yes - Integumentary Hx Dermatological Disorder: Yes Other/Comment: R diabetic foot ulcer - Musculoskeletal/Rheumatological Hx Musculoskeletal Disorders: Yes Hx Arthritis: Yes - Gastrointestinal Hx Gastrointestinal Disorders: No - Genitourinary/Gynecological Hx Genitourinary Disorders: No - Psychiatric Hx Psychophysiologic Disorder: No Hx Substance Use: No - Surgical History Hx Amputation: Yes - Anesthesia Hx Anesthesia: Yes Hx Anesthesia Reactions: No Hx Malignant Hyperthermia: No - Suicidal Assessment Feels Threatened In Home Enviroment: No Family/Social History - Physician Review Nursing Documentation Reviewed: Yes Family/Social History: Unknown Family HX Smoking Status: Former Smoker Hx Alcohol Use: No Hx Substance Use: No Hx Substance Use Treatment: No Allergies/Home Meds Allergies/Adverse Reactions: Allergies epinephrine Adverse Reaction (Verified 07/26/18 14:14) DIZZINESS Home Medications: Home Meds Medication Instructions Recorded Confirmed Esomeprazole Magnesium [Nexium] 40 mg PO DAILY 05/11/12 01/30/18 Simvastatin [Zocor] 40 mg PO QPM 12/26/14 01/30/18 Ticagrelor [Brilinta] 90 mg PO BID 03/24/15 01/30/18 Amoxicillin/Clavulanate [Augmentin 875 tab PO BID 10/09/16 01/30/18 875 MG-125 MG Tab] Propranolol [Inderal LA] 80 mg PO DAILY 01/11/18 01/30/18 glyBURIDE [Micronase] 5 mg PO BID 01/11/18 01/30/18 Aspirin [Adult Low Dose Aspirin EC] 81 mg PO DAILY 01/31/18 01/31/18 Furosemide [Lasix] 40 mg PO DAILY 01/31/18 01/31/18 Review of Systems - Review of Systems Constitutional: absent: Fatigue, Fevers ENT: absent: Sore Throat, Sinus Congestion Respiratory: Cough. absent: SOB Cardiovascular: absent: Chest Pain, Palpitations Gastrointestinal: absent: Abdominal Pain, Nausea, Vomiting Musculoskeletal: absent: Arthralgias Neurological: absent: Headache, Dizziness Psychiatric: absent: Anxiety, Depression Physical Exam Vital Signs Reviewed: Yes Vital Signs Temp Pulse Resp BP Pulse Ox 07/26/18 15:37 98.5 F 71 18 143/81 99 07/26/18 14:10 97.7 F 72 18 100 Temperature: Afebrile Blood Pressure: Normal Pulse: Regular Respiratory Rate: Normal Appearance: Positive for: Well-Appearing, Non-Toxic, Comfortable Pain Distress: None Mental Status: Positive for: Alert and Oriented X 3 - Systems Exam Head: Present: Atraumatic Conjunctiva: Present: Normal Ears: Present: Normal, NORMAL TM Mouth: Present: Moist Mucous Membranes Pharnyx: Present: Normal Nose (External): Present: Atraumatic Neck: Present: Normal Range of Motion Respiratory/Chest: Present: Clear to Auscultation, Good Air Exchange. No: Respiratory Distress, Accessory Muscle Use, Wheezes, Retracting, Rhonchi, Tachypneic Cardiovascular: Present: Regular Rate and Rhythm, Normal S1, S2. No: Murmurs Abdomen: No: Tenderness Upper Extremity: Present: Normal ROM Lower Extremity: Present: Normal ROM Neurological: Present: GCS=15, Speech Normal Skin: Present: Warm, Dry, Normal Color Psychiatric: Present: Alert, Oriented x 3 Medical Decision Making ED Course and Treatment: 07/26/18 16:43 77-year-old male with cough 3 days. Vital signs are stable. Patient is afebrile. EKG shows sinus rhythm with first-degree AV block at 72 bpm normal axis no ST elevations Chest x-ray shows no infiltrate or effusion as read by the shingle carrier CBC within normal limits CMP within normal limits BNP 164 Troponin within normal limits All results were discussed in depth with the patient. Patient was advised to follow-up with the primary care physician/shingle carrier within the next 2 days. Patient was advised immediate return if symptoms worsen persist or if new concerning symptoms develop Patient verbalizes understanding of discharge instructions and need for immediate followup. all aspects of this case were discussed the attending of record. Impression: Cough Follow up with your primary care physician within the next 2 days return immediately if symptoms worsen, persist or if new symptoms develop. - Lab Interpretations Lab Results: Troponin I < 0.01 ng/mL D 07/26/18 15:35 NT-Pro-B Natriuret Pep 164 pg/mL (0-450) 07/26/18 15:35 Total Bilirubin 0.5 mg/dL (0.2-1.3) 07/26/18 15:35 AST 37 U/L (17-59) 07/26/18 15:35 ALT 24 U/L (7-56) 07/26/18 15:35 Alkaline Phosphatase 102 U/L (38-126) 07/26/18 15:35 Total Protein 8.1 g/dL (5.8-8.3) 07/26/18 15:35 Albumin 4.4 g/dL (3.0-4.8) 07/26/18 15:35 Globulin 3.8 gm/dL 07/26/18 15:35 Albumin/Globulin Ratio 1.2 (1.1-1.8) 07/26/18 15:35 - RAD Interpretation Radiology Orders: 07/26/18 14:56 CHEST PORTABLE [RAD] Stat Disposition/Present on Arrival - Present on Arrival Any Indicators Present on Arrival: No History of DVT/PE: No History of Uncontrolled Diabetes: No Urinary Catheter: No History of Decub. Ulcer: No History Surgical Site Infection Following: None - Disposition Have Diagnosis and Disposition been Completed?: Yes Diagnosis: Cough Disposition: HOME/ ROUTINE Disposition Time: 16:00 Patient Plan: Discharge Condition: GOOD Discharge Instructions (ExitCare): Cough, Adult (DC) Additional Instructions: Follow up with your primary care physician within the next 2 days return immediately if symptoms worsen, persist or if new symptoms develop. Referrals: Moe Bowling MD [Family Provider] - Follow up with primary
[2018-07-26 17:19] VITALS: BP 159/82; PULSE 75; O2SAT 100
--- NOTE | 2018-07-27 12:40 | CARD ---
APPROVED REPORT Date of service: 07/26/2018 EKG Measurement Heart [id number] [id number] <Conclusion> Sinus rhythm with 1st degree AV block Otherwise normal ECG
== END 2018-07-26 17:20 | disposition home or self-care (01) ==
LOC: ED 13:39
DX: R05 Cough (principal); I50.9 Heart failure, unspecified; E11.9 Type 2 diabetes mellitus without complications; I10 Essential (primary) hypertension; Z95.0 Presence of cardiac pacemaker; Z87.891 Personal history of nicotine dependence; J44.9 Chronic obstructive pulmonary disease, unspecified